=== PATIENT | male | born 1960 | race Caucasian/White ===

== ENCOUNTER 2016-08-04 11:18 | Emergency (ER) | payer MEDICARE ==
[~2016-08-04 11:18] MED LIST: LISI-538 PO
[2016-08-04 11:54] LABS: BASO % 0.6 % (0.0-1.0); EOS # 0.2 K/mm3 (0.0-0.50); EOS % 2.2 % (0.0-3.0); LARGE UNSTAINED CELL # 0.1 K/mm3 (0.0-0.4); LARGE UNSTAINED CELL % 1.9 % (0.0-4.0); LYMPH # 1.9 K/mm3 (1.5-4.5); LYMPH % 25.7 % (24.0-44.0); MEAN CORPUSCULAR HEMOGLOBIN 29.8 pg (27.0-33.0); MEAN CORPUSCULAR HGB CONC 33.5 g/dl (32.0-36.5); MEAN CORPUSCULAR VOLUME 88.9 fl (80.0-96.0); MONO # 0.4 K/mm3 (0.0-0.8); MONO % 4.8 % (0.0-5.0); NEUTROPHILS # 4.8 K/mm3 (1.8-7.7); NEUTROPHILS % 64.8 % (36.0-66.0); PLATELET COUNT, AUTOMATED 166 k/mm3 (150-450); RED CELL DISTRIBUTION WIDTH 12.5 % (11.5-14.5); WHITE BLOOD COUNT 7.3 K/mm3 (4.0-10.0)
[2016-08-04 12:08] LABS: ANION GAP 6 MEQ/L (8-16); BLOOD UREA NITROGEN 21 MG/DL (7-18); CALCIUM LEVEL 8.6 MG/DL (8.5-10.1); CARBON DIOXIDE LEVEL 28 MEQ/L (21-32); CHLORIDE LEVEL 106 MEQ/L (98-107); CREATININE FOR GFR 1.01 MG/DL (0.70-1.30); GLOMERULAR FILTRATION RATE > 60.0 (>56); GLUCOSE, FASTING 78 MG/DL (70-105); POTASSIUM SERUM 4.8 MEQ/L (3.5-5.1); SODIUM LEVEL 140 MEQ/L (136-145)
[2016-08-04 12:29] LABS: FREE T4 1.06 NG/DL (0.76-1.46)
--- NOTE | 2016-08-04 12:39 | REP ---
PORTABLE CHEST: AP portable view of the chest is performed and compared to a prior study of 10/10/2015. There is mild bibasilar fibrotic scarring. There is no acute infiltrate or pulmonary edema. The heart is normal in size. The mediastinal silhouette is unchanged. IMPRESSION: Stable chronic findings without evidence of acute infiltrate. Signed by Terell Stroud MD 08/04/2016 07:58 P
--- NOTE | 2016-08-04 14:10 | REP ---
RIGHT SHOULDER SERIES: Three views. HISTORY: Pain and decreased range of motion. FINDINGS: The right glenohumeral and acromioclavicular joints are normally aligned. There is osteoarthritic spurring at the superior aspect of the AC joint. No fracture is seen. No erosive change is seen. Periarticular soft tissues are unremarkable. IMPRESSION: AC joint osteoarthritis. No acute bony abnormality. Signed by Carlos Mendez MD 08/04/2016 03:01 P
[2016-08-04] MEDS ORDERED: ISOVUE-370 76% 100ML VIAL (Q9967) As Ordered ONE (16:00)
--- NOTE | 2016-08-04 16:46 | REP ---
CT study of the chest with IV contrast: History: Chest pain. Chest CT study is compared with prior exam from 10/10/2015. CT contrast dose: 75 mL of Isovue-[address] findings: There is no evidence of pleural or pericardial effusion. There are multiple left coronary artery stents noted. The previously described mediastinal and hilar lymph nodes have regressed. No adenopathy is seen. No adrenal lesion is seen on either side. The visualized upper abdominal structures are unremarkable. There is a small cyst in the left lobe of the liver measuring 7 mm in greatest diameter unchanged. No infiltrate is seen in the lung morocho. There is an area of pleuroparenchymal fibrosis in the right middle lobe which is unchanged. No pulmonary nodule or mass lesion is seen. No bony destructive lesion is seen. Impression: No active disease. Previously noted lymph nodes are smaller and have regressed. Pleuroparenchymal fibrosis is seen in the right middle lobe unchanged. Status post coronary artery stents. Signed by Carlos Mendez MD 08/04/2016 05:01 P
[2016-08-04] MEDS ORDERED: ACETAMINOPHEN 325 MG TAB As Ordered ONE (17:42)
--- NOTE | 2016-08-04 18:28 | EDDOCDS ---
Nurse's Notes [facility] Name: Gibran Esquivel Age: 56 yrs Sex: Male : 1960 Arrival Date: 08/04/2016 Time: 11:18 Bed 14 Private MD: Aguila Tejeda Diagnosis: Osteoarthritis, unspecified site;Other chest pain-pleuritic Presentation: 08/04 11:25 Presenting complaint: Patient states: chest pain for 2 days with difficulty breathing. 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 Adult Sepsis Screening: The patient does not have new or worsening altered mentation. Patient's respiratory rate is less than 22. Systolic blood pressure is greater than 100. Patient has a qSOFA score of 0- Negative Sepsis Screen. Suicide/Homicide risk assessment- the patient denies having any suicidal and/or homicidal ideations and does not present with any other emotional, behavioral or mental health complaints. Status: Patient is not a health service worker or dependent. Transition of care: patient was not received from another setting of care. 11:25 Acuity: STEFAN Level 2 kr3 11:25 Acuity: STEFAN Level 2 kr3 11:25 Method Of Arrival: Wheelchair kr3 11:29 Red Flag criteria, patient assessed and taken directly to a bed. kr3 Triage Assessment: 11:28 General: Appears uncomfortable. Pain: Location: chest and left arm Pain currently is 8 kr3 out of 10 on a pain scale. HIV screening NA for this visit Offered previously. The patient is triaged at the bedside. See Assessment in Nurses Notes section of ED record. Neurological: Level of Consciousness is awake, alert. Cardiovascular: Chest pain is described as severe, radiates to left arm(s) episodes are intermittent began 2 days ago. Respiratory: Reports shortness of breath on exertion. Derm: Skin is pink, warm & dry. Historical: - Allergies: codeine (itching); - Home Meds: 1. aspirin 81 mg Oral chew 1 tab once daily (Last dose: 08/04/2016) 2. atorvastatin 40 mg oral tab 1 tab once daily (Last dose: 08/04/2016) 3. lisinopril 40 mg Oral tab 1 tab twice a day (Last dose: 08/04/2016) 4. Lopressor 25 mg tablets Oral 0.5 tab 2 times per day (Last dose: 08/04/2016) 5. Plavix 75 mg Oral tab 1 tab nightly (Last dose: 08/03/2016) 6. tramadol 50 mg Oral tab 2 tabs every 6 hours (Last dose: 08/04/2016) 7. Nitrostat 0.4 mg SL subl 1 tab every 5 minutes 8. nicotine 21 mg/24 hr TD pt24 1 patch once daily - PMHx: Chronic Back pain; Kidney stones; AL; - PSHx: Cardiac stents; back surgery; kidney stone; - Social history: Smoking status: Patient uses tobacco products, current every day smoker. No barriers to communication noted, The patient speaks fluent Kinyarwanda, Speaks appropriately for age. - Family history: Not pertinent. - : The pt / caregiver states he / she is on anticoagulants: Plavix. Home medication list is obtained from the patient. - Exposure Risk Screening:: None identified. Screenin:42 Screening information is obtained from the patient. Fall risk: No risks identified. ck1 Assistance ADL's: requires no assistance with activities of daily living. Abuse/DV Screen: The patient / caregiver reports he/she is: not in a situation that causes fear, pain or injury. Nutritional screening: No deficits noted. Advance Directives: Currently, there is a health care proxy, Gibran Esquivel Jr (son). home support is adequate. Assessment: 11:43 General: Appears in no apparent distress, comfortable, Behavior is appropriate for age, ck1 cooperative. Pain: Location: chest Pain currently is 8 out of 10 on a pain scale. Is intermittent. Neurological: Level of Consciousness is awake, alert, obeys commands, Oriented to person, place, time. Cardiovascular: Rhythm is sinus bradycardia. Respiratory: Reports shortness of breath cough that is dry, hacking, persistent. GI: Reports nausea. Derm: Skin is intact, is healthy with good turgor, Skin is pink, warm & dry. Musculoskeletal: No deficits noted. 12:53 General: Appears in no apparent distress, comfortable, Behavior is appropriate for age, ck1 cooperative. Pain: Location: chest Pain currently is 8 out of 10 on a pain scale. Neurological: No deficits noted. Cardiovascular: Rhythm is sinus bradycardia. Respiratory: Airway is patent Respiratory effort is even, unlabored, Respiratory pattern is regular, symmetrical. GI: No deficits noted. Derm: Skin is intact, is healthy with good turgor, Skin is pink, warm & dry. 13:04 General: Appears in no apparent distress, comfortable, Behavior is appropriate for age, mb9 cooperative. Pain:. Respiratory: Airway is patent Respiratory effort is even, unlabored. 14:05 General: Appears in no apparent distress, comfortable, Behavior is appropriate for age, ck1 cooperative. Pain: Denies pain. Neurological: Level of Consciousness is awake, alert, obeys commands, Oriented to person, place, time. Cardiovascular: Rhythm is sinus bradycardia. Respiratory: Respiratory effort is unlabored, Respiratory pattern is regular, symmetrical. GI: No deficits noted. Derm: Skin is intact, is healthy with good turgor, Skin is pink, warm & dry. Musculoskeletal: Circulation, motion, and sensation intact Range of motion intact in all extremities. 15:05 General: Patient OOB to bathroom independently. gait steady, offer no complaints of ck1 pain at this time. Call light in reach, will continue to monitor patient. 16:15 General: Appears in no apparent distress, comfortable, Behavior is appropriate for age, ck1 cooperative. Pain: Denies pain. Neurological: Level of Consciousness is awake, alert, obeys commands, Oriented to person, place, time. Cardiovascular: Rhythm is sinus bradycardia. Respiratory: Respiratory effort is unlabored, Respiratory pattern is regular, symmetrical. GI: No deficits noted. Derm: Skin is intact, is healthy with good turgor, Skin is pink, warm & dry. Musculoskeletal: Circulation, motion, and sensation intact Range of motion intact in all extremities. 17:17 General: Appears in no apparent distress, comfortable, Behavior is appropriate for age, ck1 cooperative, pleasant. Pain: Denies pain. Neurological: Level of Consciousness is awake, alert, obeys commands, Oriented to person, place, time. Cardiovascular: Rhythm is sinus bradycardia. Respiratory: Respiratory effort is unlabored, Respiratory pattern is regular, symmetrical. GI: No deficits noted. Derm: Skin is intact, is healthy with good turgor, Skin is pink, warm & dry. Musculoskeletal: Circulation, motion, and sensation intact Range of motion intact in all extremities. 18:27 General: Appears in no apparent distress, comfortable, Behavior is appropriate for age, ck1 cooperative. Pain: Denies pain. Neurological: Level of Consciousness is awake, alert, obeys commands, Oriented to person, place, time. Cardiovascular: No deficits noted. Respiratory: Respiratory effort is unlabored, Respiratory pattern is regular, symmetrical. GI: No deficits noted. Derm: Skin is intact, is healthy with good turgor, Skin is pink, warm & dry. Musculoskeletal: Circulation, motion, and sensation intact Range of motion intact in all extremities. Vital Signs: 11:20 BP 147 / 77; Pulse 51; Resp 16; Temp 96.8(O); Pulse Ox 99% ; Weight 59.87 kg; Height 5 cmb ft. 3 in. (160.02 cm); Pain 8/10; 11:26 BP 148 / 79 (auto/); ck1 11:27 Pulse 52 MON; Pulse Ox 97% ; ck1 11:41 BP 128 / 76 (auto/); ck1 11:41 Pulse 44 MON; Pulse Ox 96% ; ck1 11:56 BP 150 / 91 (auto/); ck1 11:56 Pulse 48 MON; Pulse Ox 95% ; ck1 12:11 BP 135 / 77 (auto/); ck1 12:11 Pulse 44 MON; Pulse Ox 95% ; ck1 12:25 Pulse 42 MON; Pulse Ox 95% ; ck1 12:26 BP 138 / 73 (auto/); ck1 12:41 BP 141 / 78 (auto/); ck1 12:41 Pulse 42 MON; Pulse Ox 96% ; ck1 12:52 BP 141 / 83 RA; ck1 12:52 BP 143 / 72 LA; ck1 12:56 BP 142 / 65 (auto/); ck1 12:56 Pulse 42 MON; Pulse Ox 96% ; ck1 13:11 BP 145 / 75 (auto/); ck1 13:11 Pulse 44 MON; Pulse Ox 96% ; ck1 13:26 BP 148 / 89 (auto/); ck1 13:26 Pulse 44 MON; Pulse Ox 97% ; ck1 13:41 BP 140 / 89 (auto/); ck1 13:41 Pulse 44 MON; Pulse Ox 97% ; ck1 13:56 BP 161 / 89 (auto/); ck1 13:56 Pulse 44 MON; Pulse Ox 97% ; ck1 14:11 BP 162 / 91 (auto/); ck1 14:11 Pulse 44 MON; Pulse Ox 96% ; ck1 14:26 BP 168 / 93 (auto/); ck1 14:26 Pulse 46 MON; Pulse Ox 94% ; ck1 14:41 BP 144 / 83 (auto/); ck1 14:41 Pulse 46 MON; Pulse Ox 96% ; ck1 14:56 BP 153 / 90 (auto/); ck1 14:56 Pulse 44 MON; Pulse Ox 96% ; ck1 15:04 BP 125 / 83 (auto/); ck1 15:06 Pulse 46 MON; Pulse Ox 98% ; ck1 15:19 BP 167 / 82 (auto/); ck1 15:19 Pulse 46 MON; Pulse Ox 99% ; ck1 15:34 BP 188 / 69 (auto/); ck1 15:34 Pulse 50 MON; Pulse Ox 98% ; ck1 15:49 BP 142 / 70 (auto/); ck1 15:49 Pulse 46 MON; Pulse Ox 97% ; ck1 16:04 BP 140 / 78 (auto/); ck1 16:04 Pulse 48 MON; Pulse Ox 97% ; ck1 16:05 Resp 18; Temp 98.0(O); ck1 16:19 Pulse 48 MON; Pulse Ox 99% ; ck1 16:19 BP 163 / 77 (auto/); ck1 16:34 BP 148 / 75 (auto/); ck1 16:34 Pulse 46 MON; Pulse Ox 99% ; ck1 16:49 BP 150 / 86 (auto/); ck1 16:49 Pulse 46 MON; Pulse Ox 97% ; ck1 17:04 BP 153 / 87 (auto/); ck1 17:04 Pulse 58 MON; Pulse Ox 99% ; ck1 17:09 BP 161 / 77 (auto/); ck1 17:11 Pulse 46 MON; Pulse Ox 99% ; ck1 17:24 BP 143 / 73 (auto/); ck1 17:24 Pulse 50 MON; Pulse Ox 97% ; ck1 17:39 BP 168 / 81 (auto/); ck1 17:39 Pulse 48 MON; Pulse Ox 96% ; ck1 18:24 BP 155 / 92; Pulse 51; Resp 20; Temp 97.4(O); Pulse Ox 100% on R/A; Pain 0/10; jml1 11:20 Body Mass Index 23.38 (59.87 kg, 160.02 cm) cmb Vitals: 11:20 Log In Time: August 04, 2016 at 11:15. RN notified that patient meets Red Flag cmb criteria. ED Course: :20 Patient visited by Afsaneh Ortiz. cmb 11:20 Aguila Tejeda PA is Private Physician. cmb 11:20 Patient moved to Waiting cmb 11:23 Yumiko England,BEE is Primary Nurse. kr3 11:23 Patient moved to 14 kr3 11:26 Triage Initiated kr3 11:32 Linda Garcia DO is PHCP. jo4 11:32 Evy Almonte MD is Attending Physician. jo4 11:35 Patient visited by Kurt Wheat. dem1 11:35 EKG done. (by ED staff). Reviewed by Linda Garcia DO. dem1 11:42 The patient / caregiver is instructed regarding the plan of care and ED course. Cardiac ck1 monitor on. Pulse ox on. NIBP on. 11:42 Basic Metabolic Profile Sent. ck1 11:42 CBC with Diff Sent. ck1 11:42 Cardiac Injury Profile Sent. ck1 11:42 Troponin Sent. ck1 11:42 Inserted saline lock: 20 gauge in left antecubital area and blood collected. The ck1 patient tolerated the procedure well. 11:45 Patient visited by Linda Garcia DO. jo4 11:45 Patient visited by Linda Garcia DO. jo4 12:13 FT4&TSH PANEL Sent. ck1 12:18 Patient visited by Yuimko England RN. ck1 12:49 Patient visited by Yumiko England RN. ck1 13:22 portable chest Returned. EDMS 13:32 Patient visited by Yumiko England RN. ck1 14:05 Patient visited by Yumiko England RN. ck1 14:11 Shoulder, Complete Returned. EDMS 14:22 Patient visited by Yumiko England RN. ck1 14:53 Patient visited by Yumiko England RN. ck1 15:31 Patient visited by Yumiko England RN. ck1 15:37 [facility] Payment Agreement was scanned into [employer] and attached to record. jp5 15:39 Patient visited by Yumiko England RN. ck1 15:52 Shoulder, Complete Returned. EDMS 16:05 Patient visited by Yumiko England RN. ck1 16:36 Patient visited by Yumiko England RN. ck1 17:16 Patient visited by Yumiko England RN. ck1 17:18 No procedures done that require assistance. ck1 17:26 CARDIAC MARKER PANEL Sent. ck1 17:36 CT Chest With Contrast Returned. EDMS 17:40 Patient visited by Yumiko England RN. ck1 18:06 Jose Mariscal is Referral Physician. jo4 18:06 Aguila Tejeda PA is Referral Physician. jo4 18:24 Patient visited by Azam Downs. jml1 18:26 Discontinued lock intact, bleeding controlled, pressure dressing applied, No ck1 redness/swelling at site. Administered Medications: 17:46 Drug: Acetaminophen 325 mg [acetaminophen 325 mg tablet (1 tabs)] Route: PO; ck1 Order Results: Lab Order: Basic Metabolic Profile; [facility]' 08/04/16 11:40 Test: GLUCOSE, FASTING; Value: 78; Range: 70-105; Units: MG/DL; Status: F Test: BLOOD UREA NITROGEN; Value: 21; Range: 7-18; Abnormal: Above high normal; Units: MG/DL; Status: F Test: CREATININE FOR GFR; Value: 1.01; Range: 0.70-1.30; Units: MG/DL; Status: F Test: GLOMERULAR FILTRATION RATE; Value: > 60.0; Range: >56; Status: F Test: SODIUM LEVEL; Value: 140; Range: 136-145; Units: MEQ/L; Status: F Test: POTASSIUM SERUM; Value: 4.8; Range: 3.5-5.1; Units: MEQ/L; Status: F Test: CHLORIDE LEVEL; Value: 106; Range: 98-107; Units: MEQ/L; Status: F Test: CARBON DIOXIDE LEVEL; Value: 28; Range: 21-32; Units: MEQ/L; Status: F Test: ANION GAP; Value: 6; Range: 8-16; Abnormal: Below low normal; Units: MEQ/L; Status: F Test: CALCIUM LEVEL; Value: 8.6; Range: 8.5-10.1; Units: MG/DL; Status: F Test Note: ; Units are mL/min/1.73 m2 Chronic Kidney Disease Staging per NKF: Stage I & II GFR >=60 Normal to Mildly Decreased Stage III GFR 30-59 Moderately Decreased Stage IV GFR 15-29 Severely Decreased Stage V GFR <15 Very Little GFR Left ESRD GFR <15 on [employer] Test: THYROID STIMULATING HORMONE; Range: 0.358-3.740; Units: uIU/ML; Status: I Test: FREE T4; Range: 0.76-1.46; Units: NG/DL; Status: I Lab Order: CBC with Diff; SPEC'M 08/04/16 11:40 Test: WHITE BLOOD COUNT; Value: 7.3; Range: 4.0-10.0; Units: K/mm3; Status: F Test: RED BLOOD COUNT; Value: 5.07; Range: 4.30-6.10; Units: M/mm3; Status: F Test: HEMOGLOBIN; Value: 15.1; Range: 14.0-18.0; Units: g/dl; Status: F Test: HEMATOCRIT; Value: 45.1; Range: 42.0-52.0; Units: %; Status: F Test: MEAN CORPUSCULAR VOLUME; Value: 88.9; Range: 80.0-96.0; Units: fl; Status: F Test: MEAN CORPUSCULAR HEMOGLOBIN; Value: 29.8; Range: 27.0-33.0; Units: pg; Status: F Test: MEAN CORPUSCULAR HGB CONC; Value: 33.5; Range: 32.0-36.5; Units: g/dl; Status: F Test: RED CELL DISTRIBUTION WIDTH; Value: 12.5; Range: 11.5-14.5; Units: %; Status: F Test: PLATELET COUNT, AUTOMATED; Value: 166; Range: 150-450; Units: k/mm3; Status: F Test: NEUTROPHILS %; Value: 64.8; Range: 36.0-66.0; Units: %; Status: F Test: LYMPH %; Value: 25.7; Range: 24.0-44.0; Units: %; Status: F Test: MONO %; Value: 4.8; Range: 0.0-5.0; Units: %; Status: F Test: EOS %; Value: 2.2; Range: 0.0-3.0; Units: %; Status: F Test: BASO %; Value: 0.6; Range: 0.0-1.0; Units: %; Status: F Test: LARGE UNSTAINED CELL %; Value: 1.9; Range: 0.0-4.0; Units: %; Status: F Test: NEUTROPHILS #; Value: 4.8; Range: 1.8-7.7; Units: K/mm3; Status: F Test: LYMPH #; Value: 1.9; Range: 1.5-4.5; Units: K/mm3; Status: F Test: MONO #; Value: 0.4; Range: 0.0-0.8; Units: K/mm3; Status: F Test: EOS #; Value: 0.2; Range: 0.0-0.50; Units: K/mm3; Status: F Test: BASO #; Value: 0.0; Range: 0.0-0.2; Units: K/mm3; Status: F Test: LARGE UNSTAINED CELL #; Value: 0.1; Range: 0.0-0.4; Units: K/mm3; Status: F Lab Order: Cardiac Injury Profile; SPEC'M 08/04/16 11:40 Test: CPK CREATINE PHOSPHOKINASE; Value: 83; Range: 39-308; Units: U/L; Status: F Test: CK-MB VALUE MASS; Value: 1.2; Range: 0.0-3.6; Units: NG/ML; Status: F Test: MB/CK RELATIVE INDEX; Value: 1.44; Range: < OR =4; Status: F Test Note: ; DIAGNOSIS CRITERIA MMB ng/ml Relative Index (RI) NON-AMI < or = 5 N/A ROTH ZONE > 5 < or = 4 AMI > 5 > 4 Lab Order: Troponin; SPEC'M 08/04/16 11:40 Test: TROPONIN I; Value: < 0.02; Range: < 0.10; Units: NG/ML; Status: F Test Note: ; Troponin I Reference Interval for [employer] LOCI: 99th Percentile= 0.00-0.045 ng/ml Risk Stratification: <= 0.10 ng/ml Decreased Risk for Adverse Clinical Events. 0.10-1.50 ng/ml Increased Risk for Adverse Clinical Events. Evaluation of additional criterion and/or repeat testing in 2-6 hours is suggested to rule out myocardial damage. >= 1.50 ng/ml Indicative of Myocardial Injury. Lab Order: FT4&TSH PANEL; SPEC'M 08/04/16 11:40 Test: THYROID STIMULATING HORMONE; Value: 1.980; Range: 0.358-3.740; Units: uIU/ML; Status: F Test: FREE T4; Value: 1.06; Range: 0.76-1.46; Units: NG/DL; Status: F Lab Order: CARDIAC MARKER PANEL; SPEC'M 08/04/16 17:25 Test: CPK CREATINE PHOSPHOKINASE; Value: 67; Range: 39-308; Units: U/L; Status: F Test: CK-MB VALUE MASS; Value: 1.0; Range: 0.0-3.6; Units: NG/ML; Status: F Test: MB/CK RELATIVE INDEX; Value: 1.49; Range: < OR =4; Status: F Test: TROPONIN I; Value: < 0.02; Range: < 0.10; Units: NG/ML; Status: F Test Note: ; DIAGNOSIS CRITERIA MMB ng/ml Relative Index (RI) NON-AMI < or = 5 N/A ROTH ZONE > 5 < or = 4 AMI > 5 > 4 Radiology Order: portable chest Test: portable chest REASON FOR EXAMINATION: Chest Pain; ; PORTABLE CHEST:; ; AP portable view of the chest is performed and compared to a prior study of; 10/10/2015.; ; There is mild bibasilar fibrotic scarring. There is no acute infiltrate or; pulmonary edema. The heart is normal in size. The mediastinal silhouette is; unchanged.; ; IMPRESSION:; Stable chronic findings without evidence of acute infiltrate.; ; ; ; Unreviewed; Radiology Order: Shoulder, Complete Test: Shoulder, Complete REASON FOR EXAMINATION: Pain, decreased ROM; RIGHT SHOULDER SERIES: Three views.; ; HISTORY: Pain and decreased range of motion.; ; FINDINGS: The right glenohumeral and acromioclavicular joints are normally; aligned. There is osteoarthritic spurring at the superior aspect of the AC; joint. No fracture is seen. No erosive change is seen. Periarticular soft; tissues are unremarkable.; ; IMPRESSION: AC joint osteoarthritis. No acute bony abnormality.; ; ; Signed by; Carlos Mendez MD 08/04/2016 03:01 P; Radiology Order: CT Chest With Contrast Test: CT Chest With Contrast REASON FOR EXAMINATION: Chest Pain; CT study of the chest with IV contrast:; ; History: Chest pain.; ; Chest CT study is compared with prior exam from 10/10/2015.; ; CT contrast dose: 75 mL of Isovue-370 is administered intravenously.; ; CT findings: There is no evidence of pleural or pericardial effusion. There are; multiple left coronary artery stents noted. The previously described mediastinal; and hilar lymph nodes have regressed. No adenopathy is seen. No adrenal lesion; is seen on either side. The visualized upper abdominal structures are; unremarkable. There is a small cyst in the left lobe of the liver measuring 7 mm; in greatest diameter unchanged. No infiltrate is seen in the lung morocho. There; is an area of pleuroparenchymal fibrosis in the right middle lobe which is; unchanged. No pulmonary nodule or mass lesion is seen. No bony destructive; lesion is seen.; ; Impression:; ; No active disease. Previously noted lymph nodes are smaller and have regressed.; Pleuroparenchymal fibrosis is seen in the right middle lobe unchanged. Status; post coronary artery stents.; ; ; Signed by; Carlos Mendez MD 08/04/2016 05:01 P; Outcome: 16:14 CT Study completed. ck1 18:08 Discharge ordered by Provider. jo4 18:27 Discharge Assessment: Patient awake, alert and oriented x 3. No cognitive and/or ck1 functional deficits noted. Patient verbalized understanding of disposition instructions. patient administered narcotics - no. The following High Risk Discharge criteria are identified: None. Discharged to home ambulatory. Condition: stable. Discharge instructions given to patient, Instructed on discharge instructions, follow up and referral plans. medication usage, Demonstrated understanding of instructions, medications, Pt was receptive of discharge instructions/ teaching. Work note provided to patient. Property :Personal belongings accompany Pt. 18:28 Patient left the ED. ck1 Signatures: Dispatcher [employer] EDKS Yumiko England RN RN ck1 Yanique Montalvo RN RN kr3 Azam Downs jml1 Kurt Wheat dem1 Afsaneh Ortiz Michael,RN RN mb9 Joseph Meza jp5 Linda Garcia DO DO jo4 Corrections: (The following items were deleted from the chart) 11:37 11:35 EKG done. (by ED staff). Reviewed by Evy Almonte MD dem1 dem1 12:12 12:11 FT4&TSH PANEL+LAB sent. ck1 EDMS MTDD
--- NOTE | 2016-08-04 18:28 | EDDOCDS ---
Physician Documentation [facility] Name: Girban Esquivel Age: 56 yrs Sex: Male : 1960 Arrival Date: 08/04/2016 Time: 11:18 Bed 14 Private MD: Aguila Tejeda Disposition: 08/04/16 18:08 Discharged to Home/Self Care. Impression: Osteoarthritis, unspecified site, Other chest pain - pleuritic. - Condition is Stable. - Discharge Instructions: Pleurisy, [id number]. - Medication Reconciliation, Local Pharmacy Hours, Work Release Form - 1 day form. - Follow up: Jose Mariscal; When: As previously arranged; Reason: Recheck today's complaints, Continuance of care. Follow up: Aguila Tejeda; When: Call to arrange an appointment; Reason: Recheck today's complaints. - Problem is new. - Symptoms have improved. - Notes: You were evaluated in the emergency department for chest and shoulder pain. Your laboratory results reported no acute changes. The x-ray of your shoulder reported osteoarthritis. Please keep your scheduled appointment with Dr. Mariscal as previously arranged. Please call to arrange an appointment with your primary care provider at your soonest convenience. Historical: - Allergies: codeine (itching); - Home Meds: 1. aspirin 81 mg Oral chew 1 tab once daily (Last dose: 08/04/2016) 2. atorvastatin 40 mg oral tab 1 tab once daily (Last dose: 08/04/2016) 3. lisinopril 40 mg Oral tab 1 tab twice a day (Last dose: 08/04/2016) 4. Lopressor 25 mg tablets Oral 0.5 tab 2 times per day (Last dose: 08/04/2016) 5. Plavix 75 mg Oral tab 1 tab nightly (Last dose: 08/03/2016) 6. tramadol 50 mg Oral tab 2 tabs every 6 hours (Last dose: 08/04/2016) 7. Nitrostat 0.4 mg SL subl 1 tab every 5 minutes 8. nicotine 21 mg/24 hr TD pt24 1 patch once daily - PMHx: Chronic Back pain; Kidney stones; [place]; - PSHx: Cardiac stents; back surgery; kidney stone; - Social history: Smoking status: Patient uses tobacco products, current every day smoker. No barriers to communication noted, The patient speaks fluent German, Speaks appropriately for age. - Family history: Not pertinent. - : The pt / caregiver states he / she is on anticoagulants: Plavix. Home medication list is obtained from the patient. - Exposure Risk Screening:: None identified. Vital Signs: 08/04 11:20 BP 147 / 77; Pulse 51; Resp 16; Temp 96.8(O); Pulse Ox 99% ; Weight 59.87 kg / 131.99 cmb lbs; Height 5 ft. 3 in. (160.02 cm); Pain 8/10; 11:26 BP 148 / 79 (auto/); ck1 11:27 Pulse 52 MON; Pulse Ox 97% ; ck1 11:41 BP 128 / 76 (auto/); ck1 11:41 Pulse 44 MON; Pulse Ox 96% ; ck1 11:56 BP 150 / 91 (auto/); ck1 11:56 Pulse 48 MON; Pulse Ox 95% ; ck1 12:11 BP 135 / 77 (auto/); ck1 12:11 Pulse 44 MON; Pulse Ox 95% ; ck1 12:25 Pulse 42 MON; Pulse Ox 95% ; ck1 12:26 BP 138 / 73 (auto/); ck1 12:41 BP 141 / 78 (auto/); ck1 12:41 Pulse 42 MON; Pulse Ox 96% ; ck1 12:52 BP 141 / 83 RA; ck1 12:52 BP 143 / 72 LA; ck1 12:56 BP 142 / 65 (auto/); ck1 12:56 Pulse 42 MON; Pulse Ox 96% ; ck1 13:11 BP 145 / 75 (auto/); ck1 13:11 Pulse 44 MON; Pulse Ox 96% ; ck1 13:26 BP 148 / 89 (auto/); ck1 13:26 Pulse 44 MON; Pulse Ox 97% ; ck1 13:41 BP 140 / 89 (auto/); ck1 13:41 Pulse 44 MON; Pulse Ox 97% ; ck1 13:56 BP 161 / 89 (auto/); ck1 13:56 Pulse 44 MON; Pulse Ox 97% ; ck1 14:11 BP 162 / 91 (auto/); ck1 14:11 Pulse 44 MON; Pulse Ox 96% ; ck1 14:26 BP 168 / 93 (auto/); ck1 14:26 Pulse 46 MON; Pulse Ox 94% ; ck1 14:41 BP 144 / 83 (auto/); ck1 14:41 Pulse 46 MON; Pulse Ox 96% ; ck1 14:56 BP 153 / 90 (auto/); ck1 14:56 Pulse 44 MON; Pulse Ox 96% ; ck1 15:04 BP 125 / 83 (auto/); ck1 15:06 Pulse 46 MON; Pulse Ox 98% ; ck1 15:19 BP 167 / 82 (auto/); ck1 15:19 Pulse 46 MON; Pulse Ox 99% ; ck1 15:34 BP 188 / 69 (auto/); ck1 15:34 Pulse 50 MON; Pulse Ox 98% ; ck1 15:49 BP 142 / 70 (auto/); ck1 15:49 Pulse 46 MON; Pulse Ox 97% ; ck1 16:04 BP 140 / 78 (auto/); ck1 16:04 Pulse 48 MON; Pulse Ox 97% ; ck1 16:05 Resp 18; Temp 98.0(O); ck1 16:19 Pulse 48 MON; Pulse Ox 99% ; ck1 16:19 BP 163 / 77 (auto/); ck1 16:34 BP 148 / 75 (auto/); ck1 16:34 Pulse 46 MON; Pulse Ox 99% ; ck1 16:49 BP 150 / 86 (auto/); ck1 16:49 Pulse 46 MON; Pulse Ox 97% ; ck1 17:04 BP 153 / 87 (auto/); ck1 17:04 Pulse 58 MON; Pulse Ox 99% ; ck1 17:09 BP 161 / 77 (auto/); ck1 17:11 Pulse 46 MON; Pulse Ox 99% ; ck1 17:24 BP 143 / 73 (auto/); ck1 17:24 Pulse 50 MON; Pulse Ox 97% ; ck1 17:39 BP 168 / 81 (auto/); ck1 17:39 Pulse 48 MON; Pulse Ox 96% ; ck1 18:24 BP 155 / 92; Pulse 51; Resp 20; Temp 97.4(O); Pulse Ox 100% on R/A; Pain 0/10; jml1 11:20 Body Mass Index 23.38 (59.87 kg, 160.02 cm) cmb MDM: 11:23 Health Services Rn/Pulse Ox/q 30 min VS ordered. sd1 11:23 IV Saline Lock ordered. sd1 11:23 Rhythm Strip to chart ordered. sd1 11:23 Undress patient appropriately for examination ordered. sd1 11:24 ECG WITH READING ER PHYS+CARDIAG ordered. EDMS 11:24 Basic Metabolic Profile Ordered. EDMS 11:24 CBC with Diff Ordered. EDMS 11:24 Cardiac Injury Profile Ordered. EDMS 11:24 Troponin Ordered. EDMS 11:25 portable chest Ordered. EDMS 12:12 FT4&TSH PANEL Ordered. EDMS 12:14 CBC with Diff Reviewed. jo4 12:14 Cardiac Injury Profile Reviewed. jo4 12:14 Troponin Reviewed. jo4 12:39 Basic Metabolic Profile Reviewed. sd1 12:39 Cardiac Injury Profile Reviewed. sd1 12:39 Troponin Reviewed. sd1 12:39 FT4&TSH PANEL Reviewed. sd1 12:43 Misc. Nursing Order ordered. sd1 12:54 Shoulder, Complete Ordered. EDMS 14:05 ED course: 56 yo male h/o [place] presents reporting pleuritic intermittent chest pain sd1 without associated SOB pain began at rest was not effected by exertion no respiratory symtpome no LE symptoms no PE risk patient also reports limited ROM right shoulder unknwon trauma secondary to pain pain elicited at >90 degree adduction no sewlling warmth or redness neuro vasc intact distally plan labs xray reeval. 15:30 Redraw CIP &Troponin (put time in details section) ordered. sd1 15:34 Redraw CIP &Troponin (put time in details section) complete. jml1 15:35 CARDIAC MARKER PANEL Ordered. EDMS 15:37 [facility] Payment Agreement was scanned into [employer] and attached to record. jp5 15:37 Financial registration complete. jp5 15:39 Shoulder, Complete Reviewed. jo4 15:39 REGULAR+DIET ordered. EDMS 15:39 portable chest Reviewed. jo4 15:51 CT Chest With Contrast Ordered. EDMS 17:30 Acetaminophen Tablet 325 mg PO once ordered. jo4 17:56 Shoulder, Complete Reviewed. sd1 17:56 CT Chest With Contrast Reviewed. sd1 18:03 CARDIAC MARKER PANEL Reviewed. sd1 Administered Medications: 17:46 Drug: Acetaminophen 325 mg [acetaminophen 325 mg tablet (1 tabs)] Route: PO; ck1 Signatures: Dispatcher [employer] EDGA Evy Almonte MD MD sd1 Yumiko England,RN RN ck1 Yanique Montalvo,RN RN kr3 Azam Downsl1 Joseph Meza jp5 Linda Garcia DO DO jo4 The chart was reviewed and I authenticate all verbal orders and agree with the evaluation and treatment provided.Corrections: (The following items were deleted from the chart) 12:12 12:04 FT4&TSH PANEL+LAB ordered. EDMS EDMS Attachments: 15:37 [facility] Payment Agreement jp5 MTDD
--- NOTE | 2016-08-04 20:23 | ECGEPIP ---
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
--- NOTE | 2016-08-06 19:29 | EDDOCDS ---
Physician Documentation [facility] Name: Gibran Esquivel Age: 56 yrs Sex: Male : 1960 Arrival Date: 08/04/2016 Time: 11:18 Bed 14 Private MD: Aguila Tejeda Disposition: 08/04/16 18:08 Discharged to Home/Self Care. Impression: Osteoarthritis, unspecified site, Other chest pain - pleuritic. - Condition is Stable. - Discharge Instructions: Pleurisy, [id number]. - Medication Reconciliation, Local Pharmacy Hours, Work Release Form - 1 day form. - Follow up: Jose Mariscal; When: As previously arranged; Reason: Recheck today's complaints, Continuance of care. Follow up: Aguila Tejeda; When: Call to arrange an appointment; Reason: Recheck today's complaints. - Problem is new. - Symptoms have improved. - Notes: You were evaluated in the emergency department for chest and shoulder pain. Your laboratory results reported no acute changes. The x-ray of your shoulder reported osteoarthritis. Please keep your scheduled appointment with Dr. Mariscal as previously arranged. Please call to arrange an appointment with your primary care provider at your soonest convenience. Historical: - Allergies: codeine (itching); - Home Meds: 1. aspirin 81 mg Oral chew 1 tab once daily (Last dose: 08/04/2016) 2. atorvastatin 40 mg oral tab 1 tab once daily (Last dose: 08/04/2016) 3. lisinopril 40 mg Oral tab 1 tab twice a day (Last dose: 08/04/2016) 4. Lopressor 25 mg tablets Oral 0.5 tab 2 times per day (Last dose: 08/04/2016) 5. Plavix 75 mg Oral tab 1 tab nightly (Last dose: 08/03/2016) 6. tramadol 50 mg Oral tab 2 tabs every 6 hours (Last dose: 08/04/2016) 7. Nitrostat 0.4 mg SL subl 1 tab every 5 minutes 8. nicotine 21 mg/24 hr TD pt24 1 patch once daily - PMHx: Chronic Back pain; Kidney stones; [place]; - PSHx: Cardiac stents; back surgery; kidney stone; - Social history: Smoking status: Patient uses tobacco products, current every day smoker. No barriers to communication noted, The patient speaks fluent Korean, Speaks appropriately for age. - Family history: Not pertinent. - : The pt / caregiver states he / she is on anticoagulants: Plavix. Home medication list is obtained from the patient. - Exposure Risk Screening:: None identified. Vital Signs: 08/04 11:20 BP 147 / 77; Pulse 51; Resp 16; Temp 96.8(O); Pulse Ox 99% ; Weight 59.87 kg / 131.99 cmb lbs; Height 5 ft. 3 in. (160.02 cm); Pain 8/10; 11:26 BP 148 / 79 (auto/); ck1 11:27 Pulse 52 MON; Pulse Ox 97% ; ck1 11:41 BP 128 / 76 (auto/); ck1 11:41 Pulse 44 MON; Pulse Ox 96% ; ck1 11:56 BP 150 / 91 (auto/); ck1 11:56 Pulse 48 MON; Pulse Ox 95% ; ck1 12:11 BP 135 / 77 (auto/); ck1 12:11 Pulse 44 MON; Pulse Ox 95% ; ck1 12:25 Pulse 42 MON; Pulse Ox 95% ; ck1 12:26 BP 138 / 73 (auto/); ck1 12:41 BP 141 / 78 (auto/); ck1 12:41 Pulse 42 MON; Pulse Ox 96% ; ck1 12:52 BP 141 / 83 RA; ck1 12:52 BP 143 / 72 LA; ck1 12:56 BP 142 / 65 (auto/); ck1 12:56 Pulse 42 MON; Pulse Ox 96% ; ck1 13:11 BP 145 / 75 (auto/); ck1 13:11 Pulse 44 MON; Pulse Ox 96% ; ck1 13:26 BP 148 / 89 (auto/); ck1 13:26 Pulse 44 MON; Pulse Ox 97% ; ck1 13:41 BP 140 / 89 (auto/); ck1 13:41 Pulse 44 MON; Pulse Ox 97% ; ck1 13:56 BP 161 / 89 (auto/); ck1 13:56 Pulse 44 MON; Pulse Ox 97% ; ck1 14:11 BP 162 / 91 (auto/); ck1 14:11 Pulse 44 MON; Pulse Ox 96% ; ck1 14:26 BP 168 / 93 (auto/); ck1 14:26 Pulse 46 MON; Pulse Ox 94% ; ck1 14:41 BP 144 / 83 (auto/); ck1 14:41 Pulse 46 MON; Pulse Ox 96% ; ck1 14:56 BP 153 / 90 (auto/); ck1 14:56 Pulse 44 MON; Pulse Ox 96% ; ck1 15:04 BP 125 / 83 (auto/); ck1 15:06 Pulse 46 MON; Pulse Ox 98% ; ck1 15:19 BP 167 / 82 (auto/); ck1 15:19 Pulse 46 MON; Pulse Ox 99% ; ck1 15:34 BP 188 / 69 (auto/); ck1 15:34 Pulse 50 MON; Pulse Ox 98% ; ck1 15:49 BP 142 / 70 (auto/); ck1 15:49 Pulse 46 MON; Pulse Ox 97% ; ck1 16:04 BP 140 / 78 (auto/); ck1 16:04 Pulse 48 MON; Pulse Ox 97% ; ck1 16:05 Resp 18; Temp 98.0(O); ck1 16:19 Pulse 48 MON; Pulse Ox 99% ; ck1 16:19 BP 163 / 77 (auto/); ck1 16:34 BP 148 / 75 (auto/); ck1 16:34 Pulse 46 MON; Pulse Ox 99% ; ck1 16:49 BP 150 / 86 (auto/); ck1 16:49 Pulse 46 MON; Pulse Ox 97% ; ck1 17:04 BP 153 / 87 (auto/); ck1 17:04 Pulse 58 MON; Pulse Ox 99% ; ck1 17:09 BP 161 / 77 (auto/); ck1 17:11 Pulse 46 MON; Pulse Ox 99% ; ck1 17:24 BP 143 / 73 (auto/); ck1 17:24 Pulse 50 MON; Pulse Ox 97% ; ck1 17:39 BP 168 / 81 (auto/); ck1 17:39 Pulse 48 MON; Pulse Ox 96% ; ck1 18:24 BP 155 / 92; Pulse 51; Resp 20; Temp 97.4(O); Pulse Ox 100% on R/A; Pain 0/10; jml1 11:20 Body Mass Index 23.38 (59.87 kg, 160.02 cm) cmb MDM: 11:23 Assault Amphibious Vehicle Officer/Pulse Ox/q 30 min VS ordered. sd1 11:23 IV Saline Lock ordered. sd1 11:23 Rhythm Strip to chart ordered. sd1 11:23 Undress patient appropriately for examination ordered. sd1 11:24 ECG WITH READING ER PHYS+CARDIAG ordered. EDMS 11:24 Basic Metabolic Profile Ordered. EDMS 11:24 CBC with Diff Ordered. EDMS 11:24 Cardiac Injury Profile Ordered. EDMS 11:24 Troponin Ordered. EDMS 11:25 portable chest Ordered. EDMS 12:12 FT4&TSH PANEL Ordered. EDMS 12:14 CBC with Diff Reviewed. jo4 12:14 Cardiac Injury Profile Reviewed. jo4 12:14 Troponin Reviewed. jo4 12:39 Basic Metabolic Profile Reviewed. sd1 12:39 Cardiac Injury Profile Reviewed. sd1 12:39 Troponin Reviewed. sd1 12:39 FT4&TSH PANEL Reviewed. sd1 12:43 Misc. Nursing Order ordered. sd1 12:54 Shoulder, Complete Ordered. EDMS 14:05 ED course: 56 yo male h/o [place] presents reporting pleuritic intermittent chest pain sd1 without associated SOB pain began at rest was not effected by exertion no respiratory symtpome no LE symptoms no PE risk patient also reports limited ROM right shoulder unknwon trauma secondary to pain pain elicited at >90 degree adduction no sewlling warmth or redness neuro vasc intact distally plan labs xray reeval. 15:30 Redraw CIP &Troponin (put time in details section) ordered. sd1 15:34 Redraw CIP &Troponin (put time in details section) complete. jml1 15:35 CARDIAC MARKER PANEL Ordered. EDMS 15:37 [facility] Payment Agreement was scanned into [employer] and attached to record. jp5 15:37 Financial registration complete. jp5 15:39 Shoulder, Complete Reviewed. jo4 15:39 REGULAR+DIET ordered. EDMS 15:39 portable chest Reviewed. jo4 15:51 CT Chest With Contrast Ordered. EDMS 17:30 Acetaminophen Tablet 325 mg PO once ordered. jo4 17:56 Shoulder, Complete Reviewed. sd1 17:56 CT Chest With Contrast Reviewed. sd1 18:03 CARDIAC MARKER PANEL Reviewed. sd1 08/05 11:26 T-Sheet-- Draft Copy was scanned into [employer] and attached to record. gb 11:26 ECG/EKG was scanned into [employer] and attached to record. gb Administered Medications: 08/04 17:46 Drug: Acetaminophen 325 mg [acetaminophen 325 mg tablet (1 tabs)] Route: PO; ck1 Signatures: Dispatcher [employer] EDMS Evy Almonte MD MD sd1 Emma Chavira, Reg Reg gb Yumiko EnglandRN RN ck1 Yanique Montalvo RN RN kr3 Azam Downsl1 Joseph Meza jp5 Linda Garcia DO DO jo4 The chart was reviewed and I authenticate all verbal orders and agree with the evaluation and treatment provided.Corrections: (The following items were deleted from the chart) 12:12 12:04 FT4&TSH PANEL+LAB ordered. EDMS EDMS Attachments: 15:37 [facility] Payment Agreement jp5 08/05 11:26 T-Sheet-- Draft Copy gb 11:26 ECG/EKG gb Chart Complete MTDD
--- NOTE | 2016-08-06 19:29 | EDDOCDS ---
Physician Documentation [facility] Name: Gibran Esquivel Age: 56 yrs Sex: Male : 1960 Arrival Date: 08/04/2016 Time: 11:18 Bed 14 Private MD: Aguila Tejeda Disposition: 08/04/16 18:08 Discharged to Home/Self Care. Impression: Osteoarthritis, unspecified site, Other chest pain - pleuritic. - Condition is Stable. - Discharge Instructions: Pleurisy, [id number]. - Medication Reconciliation, Local Pharmacy Hours, Work Release Form - 1 day form. - Follow up: Jose Mariscal; When: As previously arranged; Reason: Recheck today's complaints, Continuance of care. Follow up: Aguila Tejeda; When: Call to arrange an appointment; Reason: Recheck today's complaints. - Problem is new. - Symptoms have improved. - Notes: You were evaluated in the emergency department for chest and shoulder pain. Your laboratory results reported no acute changes. The x-ray of your shoulder reported osteoarthritis. Please keep your scheduled appointment with Dr. Mariscal as previously arranged. Please call to arrange an appointment with your primary care provider at your soonest convenience. Historical: - Allergies: codeine (itching); - Home Meds: 1. aspirin 81 mg Oral chew 1 tab once daily (Last dose: 08/04/2016) 2. atorvastatin 40 mg oral tab 1 tab once daily (Last dose: 08/04/2016) 3. lisinopril 40 mg Oral tab 1 tab twice a day (Last dose: 08/04/2016) 4. Lopressor 25 mg tablets Oral 0.5 tab 2 times per day (Last dose: 08/04/2016) 5. Plavix 75 mg Oral tab 1 tab nightly (Last dose: 08/03/2016) 6. tramadol 50 mg Oral tab 2 tabs every 6 hours (Last dose: 08/04/2016) 7. Nitrostat 0.4 mg SL subl 1 tab every 5 minutes 8. nicotine 21 mg/24 hr TD pt24 1 patch once daily - PMHx: Chronic Back pain; Kidney stones; [place]; - PSHx: Cardiac stents; back surgery; kidney stone; - Social history: Smoking status: Patient uses tobacco products, current every day smoker. No barriers to communication noted, The patient speaks fluent Lao, Speaks appropriately for age. - Family history: Not pertinent. - : The pt / caregiver states he / she is on anticoagulants: Plavix. Home medication list is obtained from the patient. - Exposure Risk Screening:: None identified. Vital Signs: 08/04 11:20 BP 147 / 77; Pulse 51; Resp 16; Temp 96.8(O); Pulse Ox 99% ; Weight 59.87 kg / 131.99 cmb lbs; Height 5 ft. 3 in. (160.02 cm); Pain 8/10; 11:26 BP 148 / 79 (auto/); ck1 11:27 Pulse 52 MON; Pulse Ox 97% ; ck1 11:41 BP 128 / 76 (auto/); ck1 11:41 Pulse 44 MON; Pulse Ox 96% ; ck1 11:56 BP 150 / 91 (auto/); ck1 11:56 Pulse 48 MON; Pulse Ox 95% ; ck1 12:11 BP 135 / 77 (auto/); ck1 12:11 Pulse 44 MON; Pulse Ox 95% ; ck1 12:25 Pulse 42 MON; Pulse Ox 95% ; ck1 12:26 BP 138 / 73 (auto/); ck1 12:41 BP 141 / 78 (auto/); ck1 12:41 Pulse 42 MON; Pulse Ox 96% ; ck1 12:52 BP 141 / 83 RA; ck1 12:52 BP 143 / 72 LA; ck1 12:56 BP 142 / 65 (auto/); ck1 12:56 Pulse 42 MON; Pulse Ox 96% ; ck1 13:11 BP 145 / 75 (auto/); ck1 13:11 Pulse 44 MON; Pulse Ox 96% ; ck1 13:26 BP 148 / 89 (auto/); ck1 13:26 Pulse 44 MON; Pulse Ox 97% ; ck1 13:41 BP 140 / 89 (auto/); ck1 13:41 Pulse 44 MON; Pulse Ox 97% ; ck1 13:56 BP 161 / 89 (auto/); ck1 13:56 Pulse 44 MON; Pulse Ox 97% ; ck1 14:11 BP 162 / 91 (auto/); ck1 14:11 Pulse 44 MON; Pulse Ox 96% ; ck1 14:26 BP 168 / 93 (auto/); ck1 14:26 Pulse 46 MON; Pulse Ox 94% ; ck1 14:41 BP 144 / 83 (auto/); ck1 14:41 Pulse 46 MON; Pulse Ox 96% ; ck1 14:56 BP 153 / 90 (auto/); ck1 14:56 Pulse 44 MON; Pulse Ox 96% ; ck1 15:04 BP 125 / 83 (auto/); ck1 15:06 Pulse 46 MON; Pulse Ox 98% ; ck1 15:19 BP 167 / 82 (auto/); ck1 15:19 Pulse 46 MON; Pulse Ox 99% ; ck1 15:34 BP 188 / 69 (auto/); ck1 15:34 Pulse 50 MON; Pulse Ox 98% ; ck1 15:49 BP 142 / 70 (auto/); ck1 15:49 Pulse 46 MON; Pulse Ox 97% ; ck1 16:04 BP 140 / 78 (auto/); ck1 16:04 Pulse 48 MON; Pulse Ox 97% ; ck1 16:05 Resp 18; Temp 98.0(O); ck1 16:19 Pulse 48 MON; Pulse Ox 99% ; ck1 16:19 BP 163 / 77 (auto/); ck1 16:34 BP 148 / 75 (auto/); ck1 16:34 Pulse 46 MON; Pulse Ox 99% ; ck1 16:49 BP 150 / 86 (auto/); ck1 16:49 Pulse 46 MON; Pulse Ox 97% ; ck1 17:04 BP 153 / 87 (auto/); ck1 17:04 Pulse 58 MON; Pulse Ox 99% ; ck1 17:09 BP 161 / 77 (auto/); ck1 17:11 Pulse 46 MON; Pulse Ox 99% ; ck1 17:24 BP 143 / 73 (auto/); ck1 17:24 Pulse 50 MON; Pulse Ox 97% ; ck1 17:39 BP 168 / 81 (auto/); ck1 17:39 Pulse 48 MON; Pulse Ox 96% ; ck1 18:24 BP 155 / 92; Pulse 51; Resp 20; Temp 97.4(O); Pulse Ox 100% on R/A; Pain 0/10; jml1 11:20 Body Mass Index 23.38 (59.87 kg, 160.02 cm) cmb MDM: 11:23 Durability Technician/Pulse Ox/q 30 min VS ordered. sd1 11:23 IV Saline Lock ordered. sd1 11:23 Rhythm Strip to chart ordered. sd1 11:23 Undress patient appropriately for examination ordered. sd1 11:24 ECG WITH READING ER PHYS+CARDIAG ordered. EDMS 11:24 Basic Metabolic Profile Ordered. EDMS 11:24 CBC with Diff Ordered. EDMS 11:24 Cardiac Injury Profile Ordered. EDMS 11:24 Troponin Ordered. EDMS 11:25 portable chest Ordered. EDMS 12:12 FT4&TSH PANEL Ordered. EDMS 12:14 CBC with Diff Reviewed. jo4 12:14 Cardiac Injury Profile Reviewed. jo4 12:14 Troponin Reviewed. jo4 12:39 Basic Metabolic Profile Reviewed. sd1 12:39 Cardiac Injury Profile Reviewed. sd1 12:39 Troponin Reviewed. sd1 12:39 FT4&TSH PANEL Reviewed. sd1 12:43 Misc. Nursing Order ordered. sd1 12:54 Shoulder, Complete Ordered. EDMS 14:05 ED course: 56 yo male h/o [place] presents reporting pleuritic intermittent chest pain sd1 without associated SOB pain began at rest was not effected by exertion no respiratory symtpome no LE symptoms no PE risk patient also reports limited ROM right shoulder unknwon trauma secondary to pain pain elicited at >90 degree adduction no sewlling warmth or redness neuro vasc intact distally plan labs xray reeval. 15:30 Redraw CIP &Troponin (put time in details section) ordered. sd1 15:34 Redraw CIP &Troponin (put time in details section) complete. jml1 15:35 CARDIAC MARKER PANEL Ordered. EDMS 15:37 [facility] Payment Agreement was scanned into [employer] and attached to record. jp5 15:37 Financial registration complete. jp5 15:39 Shoulder, Complete Reviewed. jo4 15:39 REGULAR+DIET ordered. EDMS 15:39 portable chest Reviewed. jo4 15:51 CT Chest With Contrast Ordered. EDMS 17:30 Acetaminophen Tablet 325 mg PO once ordered. jo4 17:56 Shoulder, Complete Reviewed. sd1 17:56 CT Chest With Contrast Reviewed. sd1 18:03 CARDIAC MARKER PANEL Reviewed. sd1 08/05 11:26 T-Sheet-- Draft Copy was scanned into [employer] and attached to record. gb 11:26 ECG/EKG was scanned into [employer] and attached to record. gb Administered Medications: 08/04 17:46 Drug: Acetaminophen 325 mg [acetaminophen 325 mg tablet (1 tabs)] Route: PO; ck1 Signatures: Dispatcher [employer] EDMS Evy Almonte MD MD sd1 Emma Chavira, Reg Reg gb Yumiko EnglandRN RN ck1 Yanique Montalvo RN RN kr3 Azam Downsl1 Joseph Meza jp5 Linda Garcia DO DO jo4 The chart was reviewed and I authenticate all verbal orders and agree with the evaluation and treatment provided.Corrections: (The following items were deleted from the chart) 12:12 12:04 FT4&TSH PANEL+LAB ordered. EDMS EDMS Attachments: 15:37 [facility] Payment Agreement jp5 08/05 11:26 T-Sheet-- Draft Copy gb 11:26 ECG/EKG gb Chart Complete MTDD
--- NOTE | 2016-08-06 19:29 | EDDOCDS ---
Nurse's Notes [facility] Name: Reba Esquivel Age: 56 yrs Sex: Male : 1960 Arrival Date: 08/04/2016 Time: 11:18 Bed 14 Private MD: Aguila Tejeda Diagnosis: Osteoarthritis, unspecified site;Other chest pain-pleuritic Presentation: 08/04 11:25 Presenting complaint: Patient states: chest pain for 2 days with difficulty breathing. 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 Adult Sepsis Screening: The patient does not have new or worsening altered mentation. Patient's respiratory rate is less than 22. Systolic blood pressure is greater than 100. Patient has a qSOFA score of 0- Negative Sepsis Screen. Suicide/Homicide risk assessment- the patient denies having any suicidal and/or homicidal ideations and does not present with any other emotional, behavioral or mental health complaints. Status: Patient is not a member services representative or dependent. Transition of care: patient was not received from another setting of care. 11:25 Acuity: STEFAN Level 2 kr3 11:25 Acuity: STEFAN Level 2 kr3 11:25 Method Of Arrival: Wheelchair kr3 11:29 Red Flag criteria, patient assessed and taken directly to a bed. kr3 Triage Assessment: 11:28 General: Appears uncomfortable. Pain: Location: chest and left arm Pain currently is 8 kr3 out of 10 on a pain scale. HIV screening NA for this visit Offered previously. The patient is triaged at the bedside. See Assessment in Nurses Notes section of ED record. Neurological: Level of Consciousness is awake, alert. Cardiovascular: Chest pain is described as severe, radiates to left arm(s) episodes are intermittent began 2 days ago. Respiratory: Reports shortness of breath on exertion. Derm: Skin is pink, warm & dry. Historical: - Allergies: codeine (itching); - Home Meds: 1. aspirin 81 mg Oral chew 1 tab once daily (Last dose: 08/04/2016) 2. atorvastatin 40 mg oral tab 1 tab once daily (Last dose: 08/04/2016) 3. lisinopril 40 mg Oral tab 1 tab twice a day (Last dose: 08/04/2016) 4. Lopressor 25 mg tablets Oral 0.5 tab 2 times per day (Last dose: 08/04/2016) 5. Plavix 75 mg Oral tab 1 tab nightly (Last dose: 08/03/2016) 6. tramadol 50 mg Oral tab 2 tabs every 6 hours (Last dose: 08/04/2016) 7. Nitrostat 0.4 mg SL subl 1 tab every 5 minutes 8. nicotine 21 mg/24 hr TD pt24 1 patch once daily - PMHx: Chronic Back pain; Kidney stones; RI; - PSHx: Cardiac stents; back surgery; kidney stone; - Social history: Smoking status: Patient uses tobacco products, current every day smoker. No barriers to communication noted, The patient speaks fluent Cymra[place], Speaks appropriately for age. - Family history: Not pertinent. - : The pt / caregiver states he / she is on anticoagulants: Plavix. Home medication list is obtained from the patient. - Exposure Risk Screening:: None identified. Screenin:42 Screening information is obtained from the patient. Fall risk: No risks identified. ck1 Assistance ADL's: requires no assistance with activities of daily living. Abuse/DV Screen: The patient / caregiver reports he/she is: not in a situation that causes fear, pain or injury. Nutritional screening: No deficits noted. Advance Directives: Currently, there is a health care proxy, Reba Esquivel Jr (son). home support is adequate. Assessment: 11:43 General: Appears in no apparent distress, comfortable, Behavior is appropriate for age, ck1 cooperative. Pain: Location: chest Pain currently is 8 out of 10 on a pain scale. Is intermittent. Neurological: Level of Consciousness is awake, alert, obeys commands, Oriented to person, place, time. Cardiovascular: Rhythm is sinus bradycardia. Respiratory: Reports shortness of breath cough that is dry, hacking, persistent. GI: Reports nausea. Derm: Skin is intact, is healthy with good turgor, Skin is pink, warm & dry. Musculoskeletal: No deficits noted. 12:53 General: Appears in no apparent distress, comfortable, Behavior is appropriate for age, ck1 cooperative. Pain: Location: chest Pain currently is 8 out of 10 on a pain scale. Neurological: No deficits noted. Cardiovascular: Rhythm is sinus bradycardia. Respiratory: Airway is patent Respiratory effort is even, unlabored, Respiratory pattern is regular, symmetrical. GI: No deficits noted. Derm: Skin is intact, is healthy with good turgor, Skin is pink, warm & dry. 13:04 General: Appears in no apparent distress, comfortable, Behavior is appropriate for age, mb9 cooperative. Pain:. Respiratory: Airway is patent Respiratory effort is even, unlabored. 14:05 General: Appears in no apparent distress, comfortable, Behavior is appropriate for age, ck1 cooperative. Pain: Denies pain. Neurological: Level of Consciousness is awake, alert, obeys commands, Oriented to person, place, time. Cardiovascular: Rhythm is sinus bradycardia. Respiratory: Respiratory effort is unlabored, Respiratory pattern is regular, symmetrical. GI: No deficits noted. Derm: Skin is intact, is healthy with good turgor, Skin is pink, warm & dry. Musculoskeletal: Circulation, motion, and sensation intact Range of motion intact in all extremities. 15:05 General: Patient OOB to bathroom independently. gait steady, offer no complaints of ck1 pain at this time. Call light in reach, will continue to monitor patient. 16:15 General: Appears in no apparent distress, comfortable, Behavior is appropriate for age, ck1 cooperative. Pain: Denies pain. Neurological: Level of Consciousness is awake, alert, obeys commands, Oriented to person, place, time. Cardiovascular: Rhythm is sinus bradycardia. Respiratory: Respiratory effort is unlabored, Respiratory pattern is regular, symmetrical. GI: No deficits noted. Derm: Skin is intact, is healthy with good turgor, Skin is pink, warm & dry. Musculoskeletal: Circulation, motion, and sensation intact Range of motion intact in all extremities. 17:17 General: Appears in no apparent distress, comfortable, Behavior is appropriate for age, ck1 cooperative, pleasant. Pain: Denies pain. Neurological: Level of Consciousness is awake, alert, obeys commands, Oriented to person, place, time. Cardiovascular: Rhythm is sinus bradycardia. Respiratory: Respiratory effort is unlabored, Respiratory pattern is regular, symmetrical. GI: No deficits noted. Derm: Skin is intact, is healthy with good turgor, Skin is pink, warm & dry. Musculoskeletal: Circulation, motion, and sensation intact Range of motion intact in all extremities. 18:27 General: Appears in no apparent distress, comfortable, Behavior is appropriate for age, ck1 cooperative. Pain: Denies pain. Neurological: Level of Consciousness is awake, alert, obeys commands, Oriented to person, place, time. Cardiovascular: No deficits noted. Respiratory: Respiratory effort is unlabored, Respiratory pattern is regular, symmetrical. GI: No deficits noted. Derm: Skin is intact, is healthy with good turgor, Skin is pink, warm & dry. Musculoskeletal: Circulation, motion, and sensation intact Range of motion intact in all extremities. Vital Signs: 11:20 BP 147 / 77; Pulse 51; Resp 16; Temp 96.8(O); Pulse Ox 99% ; Weight 59.87 kg; Height 5 cmb ft. 3 in. (160.02 cm); Pain 8/10; 11:26 BP 148 / 79 (auto/); ck1 11:27 Pulse 52 MON; Pulse Ox 97% ; ck1 11:41 BP 128 / 76 (auto/); ck1 11:41 Pulse 44 MON; Pulse Ox 96% ; ck1 11:56 BP 150 / 91 (auto/); ck1 11:56 Pulse 48 MON; Pulse Ox 95% ; ck1 12:11 BP 135 / 77 (auto/); ck1 12:11 Pulse 44 MON; Pulse Ox 95% ; ck1 12:25 Pulse 42 MON; Pulse Ox 95% ; ck1 12:26 BP 138 / 73 (auto/); ck1 12:41 BP 141 / 78 (auto/); ck1 12:41 Pulse 42 MON; Pulse Ox 96% ; ck1 12:52 BP 141 / 83 RA; ck1 12:52 BP 143 / 72 LA; ck1 12:56 BP 142 / 65 (auto/); ck1 12:56 Pulse 42 MON; Pulse Ox 96% ; ck1 13:11 BP 145 / 75 (auto/); ck1 13:11 Pulse 44 MON; Pulse Ox 96% ; ck1 13:26 BP 148 / 89 (auto/); ck1 13:26 Pulse 44 MON; Pulse Ox 97% ; ck1 13:41 BP 140 / 89 (auto/); ck1 13:41 Pulse 44 MON; Pulse Ox 97% ; ck1 13:56 BP 161 / 89 (auto/); ck1 13:56 Pulse 44 MON; Pulse Ox 97% ; ck1 14:11 BP 162 / 91 (auto/); ck1 14:11 Pulse 44 MON; Pulse Ox 96% ; ck1 14:26 BP 168 / 93 (auto/); ck1 14:26 Pulse 46 MON; Pulse Ox 94% ; ck1 14:41 BP 144 / 83 (auto/); ck1 14:41 Pulse 46 MON; Pulse Ox 96% ; ck1 14:56 BP 153 / 90 (auto/); ck1 14:56 Pulse 44 MON; Pulse Ox 96% ; ck1 15:04 BP 125 / 83 (auto/); ck1 15:06 Pulse 46 MON; Pulse Ox 98% ; ck1 15:19 BP 167 / 82 (auto/); ck1 15:19 Pulse 46 MON; Pulse Ox 99% ; ck1 15:34 BP 188 / 69 (auto/); ck1 15:34 Pulse 50 MON; Pulse Ox 98% ; ck1 15:49 BP 142 / 70 (auto/); ck1 15:49 Pulse 46 MON; Pulse Ox 97% ; ck1 16:04 BP 140 / 78 (auto/); ck1 16:04 Pulse 48 MON; Pulse Ox 97% ; ck1 16:05 Resp 18; Temp 98.0(O); ck1 16:19 Pulse 48 MON; Pulse Ox 99% ; ck1 16:19 BP 163 / 77 (auto/); ck1 16:34 BP 148 / 75 (auto/); ck1 16:34 Pulse 46 MON; Pulse Ox 99% ; ck1 16:49 BP 150 / 86 (auto/); ck1 16:49 Pulse 46 MON; Pulse Ox 97% ; ck1 17:04 BP 153 / 87 (auto/); ck1 17:04 Pulse 58 MON; Pulse Ox 99% ; ck1 17:09 BP 161 / 77 (auto/); ck1 17:11 Pulse 46 MON; Pulse Ox 99% ; ck1 17:24 BP 143 / 73 (auto/); ck1 17:24 Pulse 50 MON; Pulse Ox 97% ; ck1 17:39 BP 168 / 81 (auto/); ck1 17:39 Pulse 48 MON; Pulse Ox 96% ; ck1 18:24 BP 155 / 92; Pulse 51; Resp 20; Temp 97.4(O); Pulse Ox 100% on R/A; Pain 0/10; jml1 11:20 Body Mass Index 23.38 (59.87 kg, 160.02 cm) cmb Vitals: 11:20 Log In Time: August 04, 2016 at 11:15. RN notified that patient meets Red Flag cmb criteria. ED Course: :20 Patient visited by Afsaneh Ortiz. cmb 11:20 Aguila Tejeda PA is Private Physician. cmb 11:20 Patient moved to Waiting cmb 11:23 Yumiko England,BEE is Primary Nurse. kr3 11:23 Patient moved to 14 kr3 11:26 Triage Initiated kr3 11:32 Linda Garcia DO is PHCP. jo4 11:32 Evy Almonte MD is Attending Physician. jo4 11:35 Patient visited by Kurt Wheat. dem1 11:35 EKG done. (by ED staff). Reviewed by Linda Garcia DO. dem1 11:42 The patient / caregiver is instructed regarding the plan of care and ED course. Cardiac ck1 monitor on. Pulse ox on. NIBP on. 11:42 Basic Metabolic Profile Sent. ck1 11:42 CBC with Diff Sent. ck1 11:42 Cardiac Injury Profile Sent. ck1 11:42 Troponin Sent. ck1 11:42 Inserted saline lock: 20 gauge in left antecubital area and blood collected. The ck1 patient tolerated the procedure well. 11:45 Patient visited by Linda Garcia DO. jo4 11:45 Patient visited by Linda Garcia DO. jo4 12:13 FT4&TSH PANEL Sent. ck1 12:18 Patient visited by Yumiko England RN. ck1 12:49 Patient visited by Yumiko England RN. ck1 13:22 portable chest Returned. EDMS 13:32 Patient visited by Yumiko England RN. ck1 14:05 Patient visited by Yumiko England RN. ck1 14:11 Shoulder, Complete Returned. EDMS 14:22 Patient visited by Yumiko England RN. ck1 14:53 Patient visited by Yumiko England RN. ck1 15:31 Patient visited by Yumiko England RN. ck1 15:37 [facility] [place] was [place] into [employer] and attached to record. jp5 15:39 Patient visited by Yumiko England RN. ck1 15:52 Shoulder, Complete Returned. EDMS 16:05 Patient visited by Yumiko England RN. ck1 16:36 Patient visited by Yumiko England RN. ck1 17:16 Patient visited by Yumiko England RN. ck1 17:18 No procedures done that require assistance. ck1 17:26 CARDIAC MARKER PANEL Sent. ck1 17:36 CT Chest With Contrast Returned. EDMS 17:40 Patient visited by Yumiko England RN. ck1 18:06 Jose Mariscal is Referral Physician. jo4 18:06 Aguila Tejeda PA is Referral Physician. jo4 18:24 Patient visited by Azam Downs. jml1 18:26 Discontinued lock intact, bleeding controlled, pressure dressing applied, No ck1 redness/swelling at site. 20:22 portable chest Returned. EDMS 21:16 EKG-ADULT Returned. EDMS 08/05 11:26 T-Sheet-- Draft Copy was scanned into [employer] and attached to record. gb 11:26 ECG/EKG was scanned into [employer] and attached to record. gb Administered Medications: 08/04 17:46 Drug: Acetaminophen 325 mg [acetaminophen 325 mg tablet (1 tabs)] Route: PO; ck1 Order Results: Lab Order: Basic Metabolic Profile; SPEC'M 08/04/16 11:40 Test: GLUCOSE, FASTING; Value: 78; Range: 70-105; Units: MG/DL; Status: F Test: BLOOD UREA NITROGEN; Value: 21; Range: 7-18; Abnormal: Above high normal; Units: MG/DL; Status: F Test: CREATININE FOR GFR; Value: 1.01; Range: 0.70-1.30; Units: MG/DL; Status: F Test: GLOMERULAR FILTRATION RATE; Value: > 60.0; Range: >56; Status: F Test: SODIUM LEVEL; Value: 140; Range: 136-145; Units: MEQ/L; Status: F Test: POTASSIUM SERUM; Value: 4.8; Range: 3.5-5.1; Units: MEQ/L; Status: F Test: CHLORIDE LEVEL; Value: 106; Range: 98-107; Units: MEQ/L; Status: F Test: CARBON DIOXIDE LEVEL; Value: 28; Range: 21-32; Units: MEQ/L; Status: F Test: ANION GAP; Value: 6; Range: 8-16; Abnormal: Below low normal; Units: MEQ/L; Status: F Test: CALCIUM LEVEL; Value: 8.6; Range: 8.5-10.1; Units: MG/DL; Status: F Test Note: ; Units are mL/min/1.73 m2 Chronic Kidney Disease Staging per NKF: Stage I & II GFR >=60 Normal to Mildly Decreased Stage III GFR 30-59 Moderately Decreased Stage IV GFR 15-29 Severely Decreased Stage V GFR <15 Very Little GFR Left ESRD GFR <15 on VENEER [employer] Test: THYROID STIMULATING HORMONE; Range: 0.358-3.740; Units: uIU/ML; Status: I Test: FREE T4; Range: 0.76-1.46; Units: NG/DL; Status: I Lab Order: CBC with Diff; SPEC'M 08/04/16 11:40 Test: WHITE BLOOD COUNT; Value: 7.3; Range: 4.0-10.0; Units: K/mm3; Status: F Test: RED BLOOD COUNT; Value: 5.07; Range: 4.30-6.10; Units: M/mm3; Status: F Test: HEMOGLOBIN; Value: 15.1; Range: 14.0-18.0; Units: g/dl; Status: F Test: HEMATOCRIT; Value: 45.1; Range: 42.0-52.0; Units: %; Status: F Test: MEAN CORPUSCULAR VOLUME; Value: 88.9; Range: 80.0-96.0; Units: fl; Status: F Test: MEAN CORPUSCULAR HEMOGLOBIN; Value: 29.8; Range: 27.0-33.0; Units: pg; Status: F Test: MEAN CORPUSCULAR HGB CONC; Value: 33.5; Range: 32.0-36.5; Units: g/dl; Status: F Test: RED CELL DISTRIBUTION WIDTH; Value: 12.5; Range: 11.5-14.5; Units: %; Status: F Test: PLATELET COUNT, AUTOMATED; Value: 166; Range: 150-450; Units: k/mm3; Status: F Test: NEUTROPHILS %; Value: 64.8; Range: 36.0-66.0; Units: %; Status: F Test: LYMPH %; Value: 25.7; Range: 24.0-44.0; Units: %; Status: F Test: MONO %; Value: 4.8; Range: 0.0-5.0; Units: %; Status: F Test: EOS %; Value: 2.2; Range: 0.0-3.0; Units: %; Status: F Test: BASO %; Value: 0.6; Range: 0.0-1.0; Units: %; Status: F Test: LARGE UNSTAINED CELL %; Value: 1.9; Range: 0.0-4.0; Units: %; Status: F Test: NEUTROPHILS #; Value: 4.8; Range: 1.8-7.7; Units: K/mm3; Status: F Test: LYMPH #; Value: 1.9; Range: 1.5-4.5; Units: K/mm3; Status: F Test: MONO #; Value: 0.4; Range: 0.0-0.8; Units: K/mm3; Status: F Test: EOS #; Value: 0.2; Range: 0.0-0.50; Units: K/mm3; Status: F Test: BASO #; Value: 0.0; Range: 0.0-0.2; Units: K/mm3; Status: F Test: LARGE UNSTAINED CELL #; Value: 0.1; Range: 0.0-0.4; Units: K/mm3; Status: F Lab Order: Cardiac Injury Profile; SPEC'M 08/04/16 11:40 Test: CPK CREATINE PHOSPHOKINASE; Value: 83; Range: 39-308; Units: U/L; Status: F Test: CK-MB VALUE MASS; Value: 1.2; Range: 0.0-3.6; Units: NG/ML; Status: F Test: MB/CK RELATIVE INDEX; Value: 1.44; Range: < OR =4; Status: F Test Note: ; DIAGNOSIS CRITERIA MMB ng/ml Relative Index (RI) NON-AMI < or = 5 N/A STROUD ZONE > 5 < or = 4 AMI > 5 > 4 Lab Order: Troponin; SPEC'M 08/04/16 11:40 Test: TROPONIN I; Value: < 0.02; Range: < 0.10; Units: NG/ML; Status: F Test Note: ; Troponin I Reference Interval for Siemens [place] LOCI: 99th Percentile= 0.00-0.045 ng/ml Risk Stratification: <= 0.10 ng/ml Decreased Risk for Adverse Clinical Events. 0.10-1.50 ng/ml Increased Risk for Adverse Clinical Events. Evaluation of additional criterion and/or repeat testing in 2-6 hours is suggested to rule out myocardial damage. >= 1.50 ng/ml Indicative of Myocardial Injury. Lab Order: FT4&TSH PANEL; SPEC' 08/04/16 11:40 Test: THYROID STIMULATING HORMONE; Value: 1.980; Range: 0.358-3.740; Units: uIU/ML; Status: F Test: FREE T4; Value: 1.06; Range: 0.76-1.46; Units: NG/DL; Status: F Lab Order: CARDIAC MARKER PANEL; SPEC' 08/04/16 17:25 Test: CPK CREATINE PHOSPHOKINASE; Value: 67; Range: 39-308; Units: U/L; Status: F Test: CK-MB VALUE MASS; Value: 1.0; Range: 0.0-3.6; Units: NG/ML; Status: F Test: MB/CK RELATIVE INDEX; Value: 1.49; Range: < OR =4; Status: F Test: TROPONIN I; Value: < 0.02; Range: < 0.10; Units: NG/ML; Status: F Test Note: ; DIAGNOSIS CRITERIA MMB ng/ml Relative Index (RI) NON-AMI < or = 5 N/A STROUD ZONE > 5 < or = 4 AMI > 5 > 4 Radiology Order: EKG-ADULT Test: EKG-ADULT REASON FOR EXAMINATION: Chest Pain; Stationary ECG Study; [facility] - ED; ; Test Date: 2016-08-04; Pat Name: REBA ESQUIVEL Department:; Room: -; 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; : 1960 Requested By: Evy Almonte; Order Number: [id number] Reading MD: Evy Almonte; Measurements; Intervals [place]; Rate: 48 P: 49; SC: 172 QRS: 49; QRSD: 88 T: 72; QT: 432; QTc: 387; Interpretive Statements; SINUS BRADYCARDIA; PROBABLE EARLY REPOLARIZATION, CLINICAL CORRELATION RECOMMENDED; DECREASED RATE 10/10/15; Electronically Signed On 08-04-2016 20:23:05 EST by Evy Almonte; Radiology Order: portable chest Test: portable chest REASON FOR EXAMINATION: Chest Pain; PORTABLE CHEST:; ; AP portable view of the chest is performed and compared to a prior study of; 10/10/2015.; ; There is mild bibasilar fibrotic scarring. There is no acute infiltrate or; pulmonary edema. The heart is normal in size. The mediastinal silhouette is; unchanged.; ; IMPRESSION:; ; Stable chronic findings without evidence of acute infiltrate.; ; ; Signed by; Terell Stroud MD 08/04/2016 07:58 P; Radiology Order: Shoulder, Complete Test: Shoulder, Complete REASON FOR EXAMINATION: Pain, decreased ROM; RIGHT SHOULDER SERIES: Three views.; ; HISTORY: Pain and decreased range of motion.; ; FINDINGS: The right glenohumeral and acromioclavicular joints are normally; aligned. There is osteoarthritic spurring at the superior aspect of the AC; joint. No fracture is seen. No erosive change is seen. Periarticular soft; tissues are unremarkable.; ; IMPRESSION: AC joint osteoarthritis. No acute bony abnormality.; ; ; Signed by; Carlos Mendez MD 08/04/2016 03:01 P; Radiology Order: CT Chest With Contrast Test: CT Chest With Contrast REASON FOR EXAMINATION: Chest Pain; CT study of the chest with IV contrast:; ; History: Chest pain.; ; Chest CT study is compared with prior exam from 10/10/2015.; ; CT contrast dose: 75 mL of Isovue-370 is administered intravenously.; ; CT findings: There is no evidence of pleural or pericardial effusion. There are; multiple left coronary artery stents noted. The previously described mediastinal; and hilar lymph nodes have regressed. No adenopathy is seen. No adrenal lesion; is seen on either side. The visualized upper abdominal structures are; unremarkable. There is a small cyst in the left lobe of the liver measuring 7 mm; in greatest diameter unchanged. No infiltrate is seen in the lung [place]. There; is an area of pleuroparenchymal fibrosis in the right middle lobe which is; unchanged. No pulmonary nodule or mass lesion is seen. No bony destructive; lesion is seen.; ; Impression:; ; No active disease. Previously noted lymph nodes are smaller and have regressed.; Pleuroparenchymal fibrosis is seen in the right middle lobe unchanged. Status; post coronary artery stents.; ; ; Signed by; Carlos Mendez MD 08/04/2016 05:01 P; Outcome: 16:14 CT Study completed. ck1 18:08 Discharge ordered by Provider. jo4 18:27 Discharge Assessment: Patient awake, alert and oriented x 3. No cognitive and/or ck1 functional deficits noted. Patient verbalized understanding of disposition instructions. patient administered narcotics - no. The following High Risk Discharge criteria are identified: None. Discharged to home ambulatory. Condition: stable. Discharge instructions given to patient, Instructed on discharge instructions, follow up and referral plans. medication usage, Demonstrated understanding of instructions, medications, Pt was receptive of discharge instructions/ teaching. Work note provided to patient. Property :Personal belongings accompany Pt. 18:28 Patient left the ED. ck1 Signatures: Dispatcher [employer] EDMS Emma Chavira, Reg Reg Yumiko EliseRN RN ck1 Yanique Montalvo,RN RN kr3 Azam Downsl1 Kurt Wheat dem1 Afsaneh Ortiz Michael,RN RN mb9 Joseph Meza jp5 Linda Garcia DO DO jo4 Corrections: (The following items were deleted from the chart) 11:37 11:35 EKG done. (by ED staff). Reviewed by Evy Almonte MD dem1 dem1 12:12 12:11 FT4&TSH PANEL+LAB sent. ck1 EDMS Chart Complete MTDD
== END 2016-08-04 18:28 | disposition home or self-care (01) ==
LOC: M ED 11:18
DX: R07.1 Chest pain on breathing (principal); M19.90 Unspecified osteoarthritis, unspecified site; R11.0 Nausea; I25.10 Atherosclerotic heart disease of native coronary artery without angina pectoris; I25.2 Old myocardial infarction; M54.9 Dorsalgia, unspecified; G89.29 Other chronic pain; Z87.442 Personal history of urinary calculi; Z82.49 Family history of ischemic heart disease and other diseases of the circulatory system; Z79.899 Other long term (current) drug therapy; Z79.82 Long term (current) use of aspirin; Z79.01 Long term (current) use of anticoagulants; Z88.5 Allergy status to narcotic agent; F17.200 Nicotine dependence, unspecified, uncomplicated
CPT/HCPCS: 36415; 71010; 71260; 73030; 80048; 82550; 82553; 84439; 84443; 84484; 85025; 93005; 93041; 99285; Q9967

== ENCOUNTER 2016-08-31 08:48 | Emergency (ER) | payer MEDICARE ==
--- NOTE | 2016-08-31 09:41 | EDDOCDS ---
Nurse's Notes [facility] Name: Gibran Esquivel Age: 56 yrs Sex: Male : 1960 Arrival Date: 08/31/2016 Time: 08:48 Bed I2 / M2 Private MD: Aguila Tejeda Diagnosis: Nausea and vomiting-Resolved;Diarrhea, unspecified-Resolved;Acute upper respiratory infection, unspecified-Resolved Presentation: 08/31 09:00 Presenting complaint: Patient states: states that he was ill x 3 days and called in to ml6 work. Patient states that he went to work today and needs a Drs. note stating he is ok to work. Adult Sepsis Screening: The patient does not have new or worsening altered mentation. Patient's respiratory rate is less than 22. Systolic blood pressure is greater than 100. Patient has a qSOFA score of 0- Negative Sepsis Screen. Suicide/Homicide risk assessment- the patient denies having any suicidal and/or homicidal ideations and does not present with any other emotional, behavioral or mental health complaints. 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 Transition of care: patient was not received from another setting of care. 09:00 Acuity: STEFAN Level 3 ml6 09:00 Method Of Arrival: Walkin/Carried/Asstd ml6 09:04 Acuity: STEFAN Level 5 ml6 Triage Assessment: 09:04 General: Appears in no apparent distress, Behavior is appropriate for age, cooperative. ml6 Pain: Denies pain. HIV screening NA for this visit Offered previously. Neurological: No deficits noted. Cardiovascular: No deficits noted. Capillary refill < 3 seconds is brisk in bilateral fingers toes Heart tones S1 S2 present Edema is absent. Pulses are all present. Respiratory: No deficits noted. Airway is patent Respiratory effort is even, unlabored, Respiratory pattern is regular, symmetrical, Breath sounds are clear bilaterally. GI: No deficits noted. Historical: - Allergies: codeine (itching); - Home Meds: 1. aspirin 81 mg Oral chew 1 tab once daily (Last dose: 08/31/2016 07:00) 2. atorvastatin 40 mg oral tab 1 tab once daily (Last dose: 08/31/2016 07:00) 3. Lopressor 25 mg tablets Oral 0.5 tab nightly (Last dose: 08/30/2016 20:00) 4. lisinopril 40 mg Oral tab 1 tab twice a day (Last dose: 08/31/2016 07:00) 5. nicotine 21 mg/24 hr TD pt24 1 patch once daily (Last dose: 08/31/2016 09:03) 6. Nitrostat 0.4 mg SL subl 1 tab every 5 minutes (Last dose: Unknown) 7. Plavix 75 mg Oral tab 1 tab nightly (Last dose: 08/30/2016 20:00) 8. tramadol 50 mg Oral tab 2 tabs every 6 hours (Last dose: Unknown) - PMHx: Chronic Back pain; Kidney stones; [place]; - PSHx: Cardiac stents; back surgery; kidney stone; - Social history: Smoking status: Patient uses tobacco products, heavy tobacco smoker. No barriers to communication noted, Speaks appropriately for age. - Family history: Not pertinent. - : The pt / caregiver states he / she is not on anticoagulants. Home medication list is obtained from the patient. - Exposure Risk Screening:: None identified. Screenin:40 Screening information is obtained from the patient. Fall risk: No risks identified. kc3 Assistance ADL's: requires no assistance with activities of daily living. Abuse/DV Screen: The patient / caregiver reports he/she is: not in a situation that causes fear, pain or injury. Nutritional screening: No deficits noted. Advance Directives: Currently, there is no health care proxy. home support is adequate. Assessment: 09:39 General: Appears in no apparent distress, comfortable, Behavior is appropriate for age, kc3 cooperative. Pain: Denies pain. Neurological: No deficits noted. Respiratory: Respiratory effort is even, unlabored. Derm: Skin is pink, warm & dry. Vital Signs: 09:01 BP 179 / 79; Pulse 55; Resp 16; Temp 98.2(O); Pulse Ox 98% on R/A; Weight 62.6 kg (R); ml6 Height 5 ft. 3 in. (160.02 cm) (R); Pain 0/10; 09:26 BP 152 / 68 (man/); lr2 09:01 Body Mass Index 24.45 (62.60 kg, 160.02 cm) ml6 Vitals: 09: Log In Time: August 31, 2016 at 04:48. ml6 ED Course: 08:49 Patient visited by Hailey West. mm15 08:49 Aguila Tejeda PA is Private Physician. mm15 08:49 Patient moved to Waiting mm15 09:01 Triage Initiated ml6 09:04 Patient moved to I2 / M2 ml6 09:06 [facility] ef1 09:06 Evy Almonte MD is Attending Physician. ef1 09:11 Patient visited by Anny Alvarado PA-C. ef1 09:23 Aguila Tejeda PA is Referral Physician. ef1 09:31 [facility] Payment Agreement was scanned into [employer] and attached to record. mm15 09:40 The patient / caregiver is instructed regarding the plan of care and ED course. kc3 09:40 No IV's were initiated during this patient's visit. No procedures done that require kc3 assistance. Order Results: There are currently no results for this order. Outcome: 09:23 Discharge ordered by Provider. ef1 09:40 Discharge Assessment: Patient awake, alert and oriented x 3. No cognitive and/or kc3 functional deficits noted. Patient verbalized understanding of disposition instructions. patient administered narcotics - no. The following High Risk Discharge criteria are identified: None. Discharged to home ambulatory. Condition: stable. Discharge instructions given to patient, Instructed on discharge instructions, follow up and referral plans. Demonstrated understanding of instructions, Pt was receptive of discharge instructions/ teaching. Work note provided to patient. No special radiology studies were completed. Property :Personal belongings accompany Pt. 09:40 Patient left the ED. kc3 Signatures: Anny Alvarado PA-C PA-C ef1 Mike Gerber, RN RN ml6 Hailey West mm15 Bianca Owen,BEE RN kc3 Juana Shaffer lr2 MTDD
--- NOTE | 2016-08-31 09:41 | EDDOCDS ---
Physician Documentation [facility] Name: Gibran Esquivel Age: 56 yrs Sex: Male : 1960 Arrival Date: 08/31/2016 Time: 08:48 Bed I2 / M2 Private MD: Aguila Tejeda Disposition: 08/31/16 09:23 Discharged to Home/Self Care. Impression: Nausea and vomiting - Resolved, Diarrhea, unspecified - Resolved, Acute upper respiratory infection, unspecified - Resolved. - Condition is Stable. - Discharge Instructions: Diarrhea, Nausea and Vomiting, Upper Respiratory Infection, Adult, [id number]. - Work Release Form - 1 day, Medication Reconciliation, Local Pharmacy Hours form. - Follow up: Aguila Tejeda; When: 1 - 2 days; Reason: Recheck today's complaints, Continuance of care. Follow up: Emergency Department; Reason: Worsening of conditions. - Problem is new. - Symptoms have improved. Historical: - Allergies: codeine (itching); - Home Meds: 1. aspirin 81 mg Oral chew 1 tab once daily (Last dose: 08/31/2016 07:00) 2. atorvastatin 40 mg oral tab 1 tab once daily (Last dose: 08/31/2016 07:00) 3. Lopressor 25 mg tablets Oral 0.5 tab nightly (Last dose: 08/30/2016 20:00) 4. lisinopril 40 mg Oral tab 1 tab twice a day (Last dose: 08/31/2016 07:00) 5. nicotine 21 mg/24 hr TD pt24 1 patch once daily (Last dose: 08/31/2016 09:03) 6. Nitrostat 0.4 mg SL subl 1 tab every 5 minutes (Last dose: Unknown) 7. Plavix 75 mg Oral tab 1 tab nightly (Last dose: 08/30/2016 20:00) 8. tramadol 50 mg Oral tab 2 tabs every 6 hours (Last dose: Unknown) - PMHx: Chronic Back pain; Kidney stones; [place]; - PSHx: Cardiac stents; back surgery; kidney stone; - Social history: Smoking status: Patient uses tobacco products, heavy tobacco smoker. No barriers to communication noted, Speaks appropriately for age. - Family history: Not pertinent. - : The pt / caregiver states he / she is not on anticoagulants. Home medication list is obtained from the patient. - Exposure Risk Screening:: None identified. Vital Signs: 08/31 09:01 BP 179 / 79; Pulse 55; Resp 16; Temp 98.2(O); Pulse Ox 98% on R/A; Weight 62.6 kg / ml6 138.01 lbs (R); Height 5 ft. 3 in. (160.02 cm) (R); Pain 0/10; 09:26 BP 152 / 68 (man/); lr2 09:01 Body Mass Index 24.45 (62.60 kg, 160.02 cm) ml6 MDM: 09:23 Recheck B/P ordered. ef1 09:23 Financial registration complete. mm15 09:31 [facility] Payment Agreement was scanned into [employer] and attached to record. mm15 Signatures: Anny Alvarado, MUNDOC PABob ef1 Mike Gerber, RN RN ml6 Hailey West mm15 Bianca Owen,RN RN kc3 The chart was reviewed and I authenticate all verbal orders and agree with the evaluation and treatment provided.Attachments: 09:31 [facility] Payment Agreement mm15 MTDD
--- NOTE | 2016-09-02 10:41 | EDDOCDS ---
Nurse's Notes [facility] Name: Gibran Esquivel Age: 56 yrs Sex: Male : 1960 Arrival Date: 08/31/2016 Time: 08:48 Bed I2 / M2 Private MD: Aguila Tejeda Diagnosis: Nausea and vomiting-Resolved;Diarrhea, unspecified-Resolved;Acute upper respiratory infection, unspecified-Resolved Presentation: 08/31 09:00 Presenting complaint: Patient states: states that he was ill x 3 days and called in to ml6 work. Patient states that he went to work today and needs a Drs. note stating he is ok to work. Adult Sepsis Screening: The patient does not have new or worsening altered mentation. Patient's respiratory rate is less than 22. Systolic blood pressure is greater than 100. Patient has a qSOFA score of 0- Negative Sepsis Screen. Suicide/Homicide risk assessment- the patient denies having any suicidal and/or homicidal ideations and does not present with any other emotional, behavioral or mental health complaints. 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 Transition of care: patient was not received from another setting of care. 09:00 Acuity: STEFAN Level 3 ml6 09:00 Method Of Arrival: Walkin/Carried/Asstd ml6 09:04 Acuity: STEFAN Level 5 ml6 Triage Assessment: 09:04 General: Appears in no apparent distress, Behavior is appropriate for age, cooperative. ml6 Pain: Denies pain. HIV screening NA for this visit Offered previously. Neurological: No deficits noted. Cardiovascular: No deficits noted. Capillary refill < 3 seconds is brisk in bilateral fingers toes Heart tones S1 S2 present Edema is absent. Pulses are all present. Respiratory: No deficits noted. Airway is patent Respiratory effort is even, unlabored, Respiratory pattern is regular, symmetrical, Breath sounds are clear bilaterally. GI: No deficits noted. Historical: - Allergies: codeine (itching); - Home Meds: 1. aspirin 81 mg Oral chew 1 tab once daily (Last dose: 08/31/2016 07:00) 2. atorvastatin 40 mg oral tab 1 tab once daily (Last dose: 08/31/2016 07:00) 3. Lopressor 25 mg tablets Oral 0.5 tab nightly (Last dose: 08/30/2016 20:00) 4. lisinopril 40 mg Oral tab 1 tab twice a day (Last dose: 08/31/2016 07:00) 5. nicotine 21 mg/24 hr TD pt24 1 patch once daily (Last dose: 08/31/2016 09:03) 6. Nitrostat 0.4 mg SL subl 1 tab every 5 minutes (Last dose: Unknown) 7. Plavix 75 mg Oral tab 1 tab nightly (Last dose: 08/30/2016 20:00) 8. tramadol 50 mg Oral tab 2 tabs every 6 hours (Last dose: Unknown) - PMHx: Chronic Back pain; Kidney stones; [place]; - PSHx: Cardiac stents; back surgery; kidney stone; - Social history: Smoking status: Patient uses tobacco products, heavy tobacco smoker. No barriers to communication noted, Speaks appropriately for age. - Family history: Not pertinent. - : The pt / caregiver states he / she is not on anticoagulants. Home medication list is obtained from the patient. - Exposure Risk Screening:: None identified. Screenin:40 Screening information is obtained from the patient. Fall risk: No risks identified. kc3 Assistance ADL's: requires no assistance with activities of daily living. Abuse/DV Screen: The patient / caregiver reports he/she is: not in a situation that causes fear, pain or injury. Nutritional screening: No deficits noted. Advance Directives: Currently, there is no health care proxy. home support is adequate. Assessment: 09:39 General: Appears in no apparent distress, comfortable, Behavior is appropriate for age, kc3 cooperative. Pain: Denies pain. Neurological: No deficits noted. Respiratory: Respiratory effort is even, unlabored. Derm: Skin is pink, warm & dry. Vital Signs: 09:01 BP 179 / 79; Pulse 55; Resp 16; Temp 98.2(O); Pulse Ox 98% on R/A; Weight 62.6 kg (R); ml6 Height 5 ft. 3 in. (160.02 cm) (R); Pain 0/10; 09:26 BP 152 / 68 (man/); lr2 09:01 Body Mass Index 24.45 (62.60 kg, 160.02 cm) ml6 Vitals: 09: Log In Time: August 31, 2016 at 04:48. ml6 ED Course: 08:49 Patient visited by Hailey West. mm15 08:49 Aguila Tejeda PA is Private Physician. mm15 08:49 Patient moved to Waiting mm15 09:01 Triage Initiated ml6 09:04 Patient moved to I2 / M2 ml6 09:06 An[facility] Alvarado [facility]-C [facility]. ef1 09:06 Evy Almonte MD is Attending Physician. ef1 09:11 Patient visited by Anny Alvarado PA-C. ef1 09:23 Aguila Tejeda PA is Referral Physician. ef1 09:31 [facility] Payment Agreement was scanned into [employer] and attached to record. mm15 09:40 The patient / caregiver is instructed regarding the plan of care and ED course. kc3 09:40 No IV's were initiated during this patient's visit. No procedures done that require kc3 assistance. 14:58 T-Sheet-- Draft Copy was scanned into [employer] and attached to record. gb Order Results: There are currently no results for this order. Outcome: 09:23 Discharge ordered by Provider. ef1 09:40 Discharge Assessment: Patient awake, alert and oriented x 3. No cognitive and/or kc3 functional deficits noted. Patient verbalized understanding of disposition instructions. patient administered narcotics - no. The following High Risk Discharge criteria are identified: None. Discharged to home ambulatory. Condition: stable. Discharge instructions given to patient, Instructed on discharge instructions, follow up and referral plans. Demonstrated understanding of instructions, Pt was receptive of discharge instructions/ teaching. Work note provided to patient. No special radiology studies were completed. Property :Personal belongings accompany Pt. 09:40 Patient left the ED. kc3 Signatures: Emma Chavira, Reg Reg gb Anny Alvarado PA-C PA-C ef1 Mike Gerber, RN RN Hailey Alonzo mm15 Bianca Owen,BEE RN oral3 Juana Shaffer2 Chart Complete MTDD
--- NOTE | 2016-09-02 10:41 | EDDOCDS ---
Physician Documentation [facility] Name: Gibran Esquivel Age: 56 yrs Sex: Male : 1960 Arrival Date: 08/31/2016 Time: 08:48 Bed I2 / M2 Private MD: Aguila Tejeda Disposition: 08/31/16 09:23 Discharged to Home/Self Care. Impression: Nausea and vomiting - Resolved, Diarrhea, unspecified - Resolved, Acute upper respiratory infection, unspecified - Resolved. - Condition is Stable. - Discharge Instructions: Diarrhea, Nausea and Vomiting, Upper Respiratory Infection, Adult, [id number]. - Work Release Form - 1 day, Medication Reconciliation, Local Pharmacy Hours form. - Follow up: Aguila Tejeda; When: 1 - 2 days; Reason: Recheck today's complaints, Continuance of care. Follow up: Emergency Department; Reason: Worsening of conditions. - Problem is new. - Symptoms have improved. Historical: - Allergies: codeine (itching); - Home Meds: 1. aspirin 81 mg Oral chew 1 tab once daily (Last dose: 08/31/2016 07:00) 2. atorvastatin 40 mg oral tab 1 tab once daily (Last dose: 08/31/2016 07:00) 3. Lopressor 25 mg tablets Oral 0.5 tab nightly (Last dose: 08/30/2016 20:00) 4. lisinopril 40 mg Oral tab 1 tab twice a day (Last dose: 08/31/2016 07:00) 5. nicotine 21 mg/24 hr TD pt24 1 patch once daily (Last dose: 08/31/2016 09:03) 6. Nitrostat 0.4 mg SL subl 1 tab every 5 minutes (Last dose: Unknown) 7. Plavix 75 mg Oral tab 1 tab nightly (Last dose: 08/30/2016 20:00) 8. tramadol 50 mg Oral tab 2 tabs every 6 hours (Last dose: Unknown) - PMHx: Chronic Back pain; Kidney stones; [place]; - PSHx: Cardiac stents; back surgery; kidney stone; - Social history: Smoking status: Patient uses tobacco products, heavy tobacco smoker. No barriers to communication noted, Speaks appropriately for age. - Family history: Not pertinent. - : The pt / caregiver states he / she is not on anticoagulants. Home medication list is obtained from the patient. - Exposure Risk Screening:: None identified. Vital Signs: 08/31 09:01 BP 179 / 79; Pulse 55; Resp 16; Temp 98.2(O); Pulse Ox 98% on R/A; Weight 62.6 kg / ml6 138.01 lbs (R); Height 5 ft. 3 in. (160.02 cm) (R); Pain 0/10; 09:26 BP 152 / 68 (man/); lr2 09:01 Body Mass Index 24.45 (62.60 kg, 160.02 cm) ml6 MDM: 09:23 Recheck B/P ordered. ef1 09:23 Financial registration complete. mm15 : [facility] Payment Agreement was scanned into [employer] and attached to record. mm15 14:58 T-Sheet-- Draft Copy was scanned into [employer] and attached to record. gb Signatures: Emma Chavira, Reg Reg gb Anny Alvarado, MUNDOC PABob ef1 Mike Gerber, RN RN ml6 Hailey West mm15 Bianca Owen,RN RN kc3 The chart was reviewed and I authenticate all verbal orders and agree with the evaluation and treatment provided.Attachments: [facility] Payment Agreement mm15 :58 T-Sheet-- Draft Copy gb Chart Complete MTDD
--- NOTE | 2016-09-02 10:41 | EDDOCDS ---
Physician Documentation [facility] Name: Gibran Esquivel Age: 56 yrs Sex: Male : 1960 Arrival Date: 08/31/2016 Time: 08:48 Bed I2 / M2 Private MD: Aguila Tejeda Disposition: 08/31/16 09:23 Discharged to Home/Self Care. Impression: Nausea and vomiting - Resolved, Diarrhea, unspecified - Resolved, Acute upper respiratory infection, unspecified - Resolved. - Condition is Stable. - Discharge Instructions: Diarrhea, Nausea and Vomiting, Upper Respiratory Infection, Adult, [id number]. - Work Release Form - 1 day, Medication Reconciliation, Local Pharmacy Hours form. - Follow up: Aguila Tejeda; When: 1 - 2 days; Reason: Recheck today's complaints, Continuance of care. Follow up: Emergency Department; Reason: Worsening of conditions. - Problem is new. - Symptoms have improved. Historical: - Allergies: codeine (itching); - Home Meds: 1. aspirin 81 mg Oral chew 1 tab once daily (Last dose: 08/31/2016 07:00) 2. atorvastatin 40 mg oral tab 1 tab once daily (Last dose: 08/31/2016 07:00) 3. Lopressor 25 mg tablets Oral 0.5 tab nightly (Last dose: 08/30/2016 20:00) 4. lisinopril 40 mg Oral tab 1 tab twice a day (Last dose: 08/31/2016 07:00) 5. nicotine 21 mg/24 hr TD pt24 1 patch once daily (Last dose: 08/31/2016 09:03) 6. Nitrostat 0.4 mg SL subl 1 tab every 5 minutes (Last dose: Unknown) 7. Plavix 75 mg Oral tab 1 tab nightly (Last dose: 08/30/2016 20:00) 8. tramadol 50 mg Oral tab 2 tabs every 6 hours (Last dose: Unknown) - PMHx: Chronic Back pain; Kidney stones; [place]; - PSHx: Cardiac stents; back surgery; kidney stone; - Social history: Smoking status: Patient uses tobacco products, heavy tobacco smoker. No barriers to communication noted, Speaks appropriately for age. - Family history: Not pertinent. - : The pt / caregiver states he / she is not on anticoagulants. Home medication list is obtained from the patient. - Exposure Risk Screening:: None identified. Vital Signs: 08/31 09:01 BP 179 / 79; Pulse 55; Resp 16; Temp 98.2(O); Pulse Ox 98% on R/A; Weight 62.6 kg / ml6 138.01 lbs (R); Height 5 ft. 3 in. (160.02 cm) (R); Pain 0/10; 09:26 BP 152 / 68 (man/); lr2 09:01 Body Mass Index 24.45 (62.60 kg, 160.02 cm) ml6 MDM: 09:23 Recheck B/P ordered. ef1 09:23 Financial registration complete. mm15 : [facility] Payment Agreement was scanned into [employer] and attached to record. mm15 14:58 T-Sheet-- Draft Copy was scanned into [employer] and attached to record. gb Signatures: Emma Chavira, Reg Reg gb Anny Alvarado, MUNDOC PABob ef1 Mike Gerber, RN RN ml6 Hailey West mm15 Bianca Owen,RN RN kc3 The chart was reviewed and I authenticate all verbal orders and agree with the evaluation and treatment provided.Attachments: [facility] Payment Agreement mm15 :58 T-Sheet-- Draft Copy gb Chart Complete MTDD
== END 2016-08-31 09:40 | disposition home or self-care (01) ==
LOC: M ED 08:48
DX: Z00.00 Encounter for general adult medical examination without abnormal findings (principal); G89.29 Other chronic pain; M54.9 Dorsalgia, unspecified; I25.2 Old myocardial infarction; Z87.442 Personal history of urinary calculi; Z95.5 Presence of coronary angioplasty implant and graft; Z72.0 Tobacco use; Z79.82 Long term (current) use of aspirin; Z79.899 Other long term (current) drug therapy; Z79.02 Long term (current) use of antithrombotics/antiplatelets; Z88.5 Allergy status to narcotic agent

== ENCOUNTER → 2016-10-07 | Outpatient (CLI) | payer MEDICARE | LOC: M LAB 15:12 | PROVIDERS: ATTEND Nurse Practitioner Family | DX: N52.9 Male erectile dysfunction, unspecified (principal) ==

== ENCOUNTER → 2016-10-18 | Outpatient (CLI) | payer MEDICARE | LOC: M LAB 10:39 | PROVIDERS: ATTEND Nurse Practitioner Family | DX: E29.1 Testicular hypofunction (principal) ==

== ENCOUNTER 2016-12-21 11:54 | Emergency (ER) | payer MEDICARE, OTHER ==
[~2016-12-21] VITALS: Ht 160 cm; Wt 59.4 kg
[2016-12-21] MEDS ORDERED: TRAM50TA2 PO (12:03)
[2016-12-21] MEDS ORDERED: CLOP75TA2 PO (12:03)
[2016-12-21] MEDS ORDERED: ATOR40TA PO (12:03)
[2016-12-21] MEDS ORDERED: GABA-283 PO (12:03)
[2016-12-21] MEDS ORDERED: METO-346 PO (12:03)
[2016-12-21] MEDS ORDERED: ONDANSETRON 4MG/2ML VIAL (J2405) IV ONE (13:15)
[2016-12-21] MEDS ORDERED: KETOROLAC 30 MG/ML VIAL (J1885) IV ONE (13:15)
[2016-12-21 13:57] LABS: BASO % 0.3 % (0.0-1.0); EOS # 0.2 K/mm3 (0.0-0.50); EOS % 1.2 % (0.0-3.0); LARGE UNSTAINED CELL # 0.2 K/mm3 (0.0-0.4); LARGE UNSTAINED CELL % 1.4 % (0.0-4.0); LYMPH # 1.3 K/mm3 (1.5-4.5); LYMPH % 8.2 % (24.0-44.0); MEAN CORPUSCULAR HEMOGLOBIN 30.5 pg (27.0-33.0); MEAN CORPUSCULAR HGB CONC 33.9 g/dl (32.0-36.5); MONO # 0.6 K/mm3 (0.0-0.8); MONO % 4.7 % (0.0-5.0); NEUTROPHILS # 11.2 K/mm3 (1.8-7.7); NEUTROPHILS % 84.2 % (36.0-66.0); PLATELET COUNT, AUTOMATED 192 k/mm3 (150-450); RED CELL DISTRIBUTION WIDTH 12.7 % (11.5-14.5); WHITE BLOOD COUNT 13.3 K/mm3 (4.0-10.0)
[2016-12-21 14:24] LABS: ALBUMIN 3.5 GM/DL (3.2-5.2); ALBUMIN/GLOBULIN RATIO 1.17 (1.00-1.93); ALKALINE PHOSPHATASE 72 U/L (45-117); ALT/SGPT 22 U/L (12-78); ANION GAP 8 MEQ/L (8-16); AST/SGOT 15 U/L (15-37); BILIRUBIN,DIRECT 0.1 MG/DL (0.0-0.2); BILIRUBIN,TOTAL 0.5 MG/DL (0.2-1.0); BLOOD UREA NITROGEN 23 MG/DL (7-18); CALCIUM LEVEL 8.9 MG/DL (8.5-10.1); CARBON DIOXIDE LEVEL 28 MEQ/L (21-32); CHLORIDE LEVEL 105 MEQ/L (98-107); CREATININE FOR GFR 1.09 MG/DL (0.70-1.30); GLOMERULAR FILTRATION RATE > 60.0 (>56); GLUCOSE, FASTING 74 MG/DL (70-105); POTASSIUM SERUM 4.6 MEQ/L (3.5-5.1); SODIUM LEVEL 141 MEQ/L (136-145); TOTAL PROTEIN 6.5 GM/DL (6.4-8.2)
--- NOTE | 2016-12-21 14:32 | REP ---
CT ABDOMEN AND PELVIS WITHOUT CONTRAST: CT abdomen and pelvis is performed without or IV contrast and compared to multiple prior exams. The visualized lung bases demonstrate acute interstitial infiltrate in the left lower lobe. The liver demonstrates a couple of subcentimeter hypodensities, one in the right lobe and one in the left lobe, probably representing tiny cysts. The gallbladder is grossly unremarkable. Spleen, adrenals, pancreas and kidneys are unremarkable. There is no evidence of renal, ureteral or bladder calculus and no hydroureteronephrosis. There is mild ectasia of the distal abdominal aorta with a maximum AP diameter of 2.8 cm. There are moderate atherosclerotic calcifications of the abdominal aorta. There is no adenopathy, free air or free fluid. No bowel wall thickening is seen. The appendix is normal. No pelvic mass is seen. The urinary bladder is not well distended and not well evaluated. IMPRESSION: Acute interstitial infiltrate in the left lung base. No evidence of renal or ureteral calculus and no hydroureteronephrosis. No appendicitis. Signed by Terell Stroud MD 12/21/2016 05:13 P
[2016-12-21] MEDS ORDERED: ALBU17IN2 INH (14:39)
[2016-12-21] MEDS ORDERED: AVEL1TAB PO (14:39)
[2016-12-21 14:54] VITALS: BP 103/67
== END 2016-12-21 15:01 | disposition home or self-care (01) ==
LOC: M ED 13:21
DX: J18.9 Pneumonia, unspecified organism (principal); I51.9 Heart disease, unspecified; F17.200 Nicotine dependence, unspecified, uncomplicated; Z95.1 Presence of aortocoronary bypass graft; Z87.442 Personal history of urinary calculi; Z79.899 Other long term (current) drug therapy; Z88.5 Allergy status to narcotic agent
CPT/HCPCS: 36415; 74176; 80048; 80076; 81001; 83690; 85025; 87086; 96374; 96375; 99283; J1885; J2405

== ENCOUNTER 2017-03-10 19:05 | Emergency (ER) | payer MEDICARE ==
[~2017-03-10] VITALS: Ht 160 cm; Wt 135.0 kg
[~2017-03-10 19:05] MED LIST changes: +ALBU17IN2 INH; +ATOR40TA75 PO; +AVEL1TAB3 PO; +CLOP75TA2 PO; +GABA-283 PO; +METO-346 PO; +TRAM50TA2 PO
[2017-03-10] MEDS ORDERED: ONDANSETRON 4MG/2ML VIAL (J2405) IV ONE (19:45)
[2017-03-10] MEDS ORDERED: NS 1,000 ML IV ONE (19:45)
[2017-03-10] MEDS ORDERED: KETOROLAC 30 MG/ML VIAL (J1885) IV ONE (19:45)
[2017-03-10 20:10] LABS: BASO % 0.6 % (0.0-1.0); EOS # 0.2 K/mm3 (0.0-0.50); EOS % 3.3 % (0.0-3.0); LARGE UNSTAINED CELL # 0.2 K/mm3 (0.0-0.4); LYMPH # 1.9 K/mm3 (1.5-4.5); LYMPH % 22.3 % (24.0-44.0); MEAN CORPUSCULAR HEMOGLOBIN 30.9 pg (27.0-33.0); MEAN CORPUSCULAR HGB CONC 34.3 g/dl (32.0-36.5); MEAN CORPUSCULAR VOLUME 90.1 fl (80.0-96.0); MONO # 0.4 K/mm3 (0.0-0.8); MONO % 5.3 % (0.0-5.0); NEUTROPHILS # 5.1 K/mm3 (1.8-7.7); NEUTROPHILS % 66.5 % (36.0-66.0); PLATELET COUNT, AUTOMATED 159 k/mm3 (150-450); RED CELL DISTRIBUTION WIDTH 13.1 % (11.5-14.5); WHITE BLOOD COUNT 7.7 K/mm3 (4.0-10.0)
[2017-03-10 20:42] LABS: ALBUMIN 3.8 GM/DL (3.2-5.2); ALBUMIN/GLOBULIN RATIO 1.19 (1.00-1.93); ALKALINE PHOSPHATASE 67 U/L (45-117); ALT/SGPT 48 U/L (12-78); AMYLASE 62 U/L (25-115); ANION GAP 7 MEQ/L (8-16); AST/SGOT 24 U/L (15-37); BILIRUBIN,DIRECT < 0.1 MG/DL (0.0-0.2); BILIRUBIN,TOTAL 0.2 MG/DL (0.2-1.0); BLOOD UREA NITROGEN 21 MG/DL (7-18); CALCIUM LEVEL 9.1 MG/DL (8.5-10.1); CARBON DIOXIDE LEVEL 26 MEQ/L (21-32); CHLORIDE LEVEL 109 MEQ/L (98-107); CREATININE FOR GFR 0.84 MG/DL (0.70-1.30); GLOMERULAR FILTRATION RATE > 60.0 (>56); GLUCOSE, FASTING 75 MG/DL (70-105); POTASSIUM SERUM 4.3 MEQ/L (3.5-5.1); SODIUM LEVEL 142 MEQ/L (136-145)
[2017-03-10 21:45] VITALS: BP 170/91
== END 2017-03-10 21:46 | disposition home or self-care (01) ==
LOC: M ED 19:05
DX: M54.5 Low back pain (principal); I25.10 Atherosclerotic heart disease of native coronary artery without angina pectoris; I25.2 Old myocardial infarction; I10 Essential (primary) hypertension; Z87.442 Personal history of urinary calculi; Z95.5 Presence of coronary angioplasty implant and graft; F17.200 Nicotine dependence, unspecified, uncomplicated; Z79.899 Other long term (current) drug therapy; Z88.5 Allergy status to narcotic agent
CPT/HCPCS: 80048; 80076; 81001; 82150; 83690; 85025; 96374; 96375; 99283; J1885; J2405

== ENCOUNTER → 2017-03-16 | Outpatient (CLI) | payer MEDICARE ==
[2017-03-16 13:41] LABS: ALBUMIN 3.6 GM/DL (3.2-5.2); ALBUMIN/GLOBULIN RATIO 1.33 (1.00-1.93); ALKALINE PHOSPHATASE 71 U/L (45-117); ALT/SGPT 33 U/L (12-78); ANION GAP 8 MEQ/L (8-16); AST/SGOT 17 U/L (15-37); BILIRUBIN,TOTAL 0.2 MG/DL (0.2-1.0); BLOOD UREA NITROGEN 21 MG/DL (7-18); CALCIUM LEVEL 8.9 MG/DL (8.5-10.1); CARBON DIOXIDE LEVEL 25 MEQ/L (21-32); CHLORIDE LEVEL 111 MEQ/L (98-107); CHOLESTEROL LEVEL 164 MG/DL (<200); CREATININE FOR GFR 0.83 MG/DL (0.70-1.30); GLOMERULAR FILTRATION RATE > 60.0 (>56); GLUCOSE, FASTING 83 MG/DL (70-105); POTASSIUM SERUM 4.5 MEQ/L (3.5-5.1); SODIUM LEVEL 144 MEQ/L (136-145); TOTAL PROTEIN 6.3 GM/DL (6.4-8.2); TRIGLYCERIDES LEVEL 104 MG/DL (<150)
== END ==
LOC: M LAB 12:24
PROVIDERS: ATTEND Nurse Practitioner Family
DX: I10 Essential (primary) hypertension (principal)

== ENCOUNTER 2017-05-24 16:15 | Emergency (ER) | payer MEDICARE, SELFPAY ==
[~2017-05-24] VITALS: Ht 160 cm; Wt 63.6 kg
[2017-05-24] MEDS ORDERED: GABA-282 PO (16:31)
[2017-05-24] MEDS ORDERED: GABA-283 PO (16:31)
[2017-05-24] MEDS ORDERED: LISI-538 PO (16:31)
[2017-05-24] MEDS ORDERED: NS 1,000 ML IV SCH (16:40)
[2017-05-24] MEDS ORDERED: ASPIRIN 81 MG CHEW TABLET PO ONE (16:45)
[2017-05-24 17:01] LABS: BASO % 0.3 % (0.0-1.0); EOS # 0.2 10^3/uL (0.0-0.50); EOS % 3.2 % (0.0-3.0); IMMATURE GRANULOCYTE % 0.3 % (0-0); LYMPH # 1.9 10^3/uL (1.5-4.5); LYMPH % 26.4 % (24.0-44.0); MEAN CORPUSCULAR HGB CONC 33.5 g/dl (32.0-36.5); MEAN CORPUSCULAR VOLUME 89.5 fl (80.0-96.0); MONO # 0.5 10^3/uL (0.0-0.8); MONO % 7.2 % (0.0-5.0); NEUTROPHILS # 4.6 10^3/uL (1.8-7.7); NEUTROPHILS % 62.6 % (36.0-66.0); PLATELET COUNT, AUTOMATED 173 10^3/uL (150-450); RED CELL DISTRIBUTION WIDTH 12.1 % (11.5-14.5); VENOUS BASE EXCESS -1.5 (-2.0-2.0); VENOUS O2 SATURATION 87.7 % (60.0-80.0); VENOUS PARTIAL PRESSURE O2 52.9 mmHg (30.0-50.0); VENOUS TOTAL CO2 26.2 MEQ/L (24.0-28.0); WHITE BLOOD COUNT 7.3 10^3/uL (4.0-10.0)
[2017-05-24] MEDS: NITROGLYCERIN 0.4 MG SUBL TABLET SL PRN ×3 (17:04→17:16)
[2017-05-24 17:16] VITALS: BP 141/83
[2017-05-24 17:17] LABS: INR 1.04
[2017-05-24 17:27] LABS: ALBUMIN 3.7 GM/DL (3.2-5.2); ALBUMIN/GLOBULIN RATIO 1.48 (1.00-1.93); ALKALINE PHOSPHATASE 72 U/L (45-117); ALT/SGPT 21 U/L (12-78); ANION GAP 6 MEQ/L (8-16); AST/SGOT 12 U/L (7-37); BILIRUBIN,DIRECT < 0.1 MG/DL (0.0-0.2); BILIRUBIN,TOTAL 0.2 MG/DL (0.2-1.0); BLOOD UREA NITROGEN 20 MG/DL (7-18); CALCIUM LEVEL 8.6 MG/DL (8.5-10.1); CARBON DIOXIDE LEVEL 26 MEQ/L (21-32); CHLORIDE LEVEL 109 MEQ/L (98-107); CREATININE FOR GFR 0.92 MG/DL (0.70-1.30); GLOMERULAR FILTRATION RATE > 60.0 (>56); GLUCOSE, FASTING 88 MG/DL (70-105); POTASSIUM SERUM 4.1 MEQ/L (3.5-5.1); SODIUM LEVEL 141 MEQ/L (136-145); TOTAL PROTEIN 6.2 GM/DL (6.4-8.2)
--- NOTE | 2017-05-24 17:51 | REP ---
AP PORTABLE CHEST: 05/24/2017. Comparison: 08/04/2016. Clinical history: Chest pain. Findings: The AP portable chest has slight lordotic projection. This may limit evaluation of the posterior lower lung zones. No gross effusion, infiltrate, atelectasis or mass. Heart, mediastinal and hilar contours are normal. Airway and aorta intact. Bony thorax grossly intact. Impression: 1. Negative portable chest. Signed by Babar Bartlett MD 05/24/2017 08:01 P
[2017-05-24 18:32] VITALS: BP 128/81
--- NOTE | 2017-05-24 18:38 | ECGEPIP ---
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
== END 2017-05-24 18:49 | disposition home or self-care (01) ==
LOC: M ED 16:15
DX: I20.8 Other forms of angina pectoris (principal); I45.2 Bifascicular block; I51.9 Heart disease, unspecified; I10 Essential (primary) hypertension; E78.5 Hyperlipidemia, unspecified; F17.200 Nicotine dependence, unspecified, uncomplicated; Z79.899 Other long term (current) drug therapy; Z88.5 Allergy status to narcotic agent

== ENCOUNTER 2017-10-23 13:04 | Emergency (ER) | payer OTHER, SELFPAY ==
[2017-10-23 13:48] LABS: KETONE, URINE AUTO RFX NEGATIVE (NEGATIVE); LEUKOCYTE ESTERASE UR AUTO RFX NEGATIVE (NEGATIVE); MUCUS, URINE RFX SMALL (NEGATIVE); NITRITE, URINE AUTO RFX NEGATIVE (NEGATIVE); RBC, URINE AUTO RFX 2 /HPF (0-3); SPECIFIC GRAVITY UR AUTO RFX 1.023 (1.002-1.035); SQUAM EPITHELIAL CELL UR AURFX 0 /HPF (0-6); WBC, URINE AUTO RFX 0 /HPF (0-3)
== END 2017-10-23 15:08 | disposition home or self-care (01) ==
LOC: M ED 13:04
DX: M54.5 Low back pain (principal); I10 Essential (primary) hypertension; E78.5 Hyperlipidemia, unspecified; Z87.442 Personal history of urinary calculi
CPT/HCPCS: 74176

== ENCOUNTER 2017-11-06 15:07 | Emergency (ER) | payer OTHER ==
[2017-11-06] MEDS ORDERED: methylPREDNISolone INJ 125 MG/2 ML VIAL (J2930) As Ordered (15:38)
[2017-11-06] MEDS: methylPREDNISolone INJ 125 MG/2 ML VIAL (J2930) IV (15:41)
[2017-11-06] MEDS: ALBUTEROL SULFATE 2.5 MG/0.5 ML INH NEB SOLN INH (15:42)
[2017-11-06] MEDS ORDERED: ACETAMINOPHEN TAB 650MG DOSE (2X325MG) As Ordered (16:28)
[2017-11-06] MEDS: ACETAMINOPHEN TAB 650MG DOSE (2X325MG) PO (16:31)
== END 2017-11-06 17:21 | disposition home or self-care (01) ==
LOC: M ED 15:07
DX: Z77.098 Contact with and (suspected) exposure to other hazardous, chiefly nonmedicinal, chemicals (principal); J98.01 Acute bronchospasm; J44.9 Chronic obstructive pulmonary disease, unspecified; I11.9 Hypertensive heart disease without heart failure; I25.10 Atherosclerotic heart disease of native coronary artery without angina pectoris; F41.9 Anxiety disorder, unspecified; M54.5 Low back pain; G89.29 Other chronic pain; I25.2 Old myocardial infarction; Z95.5 Presence of coronary angioplasty implant and graft; F17.210 Nicotine dependence, cigarettes, uncomplicated; Z88.5 Allergy status to narcotic agent; Z79.899 Other long term (current) drug therapy; Z79.02 Long term (current) use of antithrombotics/antiplatelets
CPT/HCPCS: J2930

== ENCOUNTER → 2017-11-06 | Outpatient (CLI) | payer OTHER | LOC: M LRY 14:38 | DX: R07.9 Chest pain, unspecified (principal) ==

== ENCOUNTER 2017-12-29 10:20 | Emergency (ER) | payer OTHER ==
[2017-12-29] MEDS: ONDANSETRON 4MG/2ML VIAL (J2405) IV (11:10)
[2017-12-29 11:19] LABS: KETONE, URINE AUTO RFX NEGATIVE (NEGATIVE); LEUKOCYTE ESTERASE UR AUTO RFX NEGATIVE (NEGATIVE); MUCUS, URINE RFX SMALL (NEGATIVE); NITRITE, URINE AUTO RFX NEGATIVE (NEGATIVE); RBC, URINE AUTO RFX 2 /HPF (0-3); SPECIFIC GRAVITY UR AUTO RFX 1.017 (1.002-1.035); SQUAM EPITHELIAL CELL UR AURFX 0 /HPF (0-6); WBC, URINE AUTO RFX 1 /HPF (0-3)
[2017-12-29 11:25] LABS: BASO % 0.4 % (0.0-1.0); EOS # 0.2 10^3/uL (0.0-0.50); EOS % 2.6 % (0.0-3.0); HEMATOCRIT 45.2 % (42.0-52.0); HEMOGLOBIN 15.7 g/dl (13.5-17.5); IMMATURE GRANULOCYTE % 0.4 % (0-3.0); LYMPH # 1.8 10^3/uL (1.5-4.5); LYMPH % 21.8 % (24.0-44.0); MEAN CORPUSCULAR HEMOGLOBIN 29.9 pg (27.0-33.0); MEAN CORPUSCULAR HGB CONC 34.7 g/dl (32.0-36.5); MEAN CORPUSCULAR VOLUME 86.1 fl (80.0-96.0); MONO # 0.5 10^3/uL (0.0-0.8); MONO % 6.2 % (0.0-5.0); NEUTROPHILS # 5.8 10^3/uL (1.8-7.7); NEUTROPHILS % 68.6 % (36.0-66.0); PLATELET COUNT, AUTOMATED 167 10^3/uL (150-450); RED BLOOD COUNT 5.25 10^6/uL (4.30-6.10); RED CELL DISTRIBUTION WIDTH 12.6 % (11.5-14.5); WHITE BLOOD COUNT 8.4 10^3/uL (4.0-10.0)
[2017-12-29 11:41] LABS: ALBUMIN 3.9 GM/DL (3.2-5.2); ALBUMIN/GLOBULIN RATIO 1.44 (1.00-1.93); ALKALINE PHOSPHATASE 80 U/L (45-117); ALT/SGPT 25 U/L (12-78); AMYLASE 45 U/L (25-115); ANION GAP 4 MEQ/L (8-16); AST/SGOT 28 U/L (7-37); BILIRUBIN,DIRECT < 0.1 MG/DL (0.0-0.2); BILIRUBIN,TOTAL 0.5 MG/DL (0.2-1.0); BLOOD UREA NITROGEN 16 MG/DL (7-18); CALCIUM LEVEL 8.6 MG/DL (8.5-10.1); CARBON DIOXIDE LEVEL 27 MEQ/L (21-32); CHLORIDE LEVEL 113 MEQ/L (98-107); CREATININE FOR GFR 0.72 MG/DL (0.70-1.30); GLOMERULAR FILTRATION RATE > 60.0 (>56); GLUCOSE, FASTING 80 MG/DL (70-100); LIPASE 99 U/L (73-393); POTASSIUM SERUM 4.4 MEQ/L (3.5-5.1); SODIUM LEVEL 144 MEQ/L (136-145); TOTAL PROTEIN 6.6 GM/DL (6.4-8.2); TROPONIN I < 0.02 NG/ML (< 0.10)
[2017-12-29] MEDS: GI COCKTAIL 50ML BTL(HYOSCYAMINE/MAALOX/LIDOCAINE VISCOUS)(1:3:1) PO (11:56)
== END 2017-12-29 12:55 | disposition home or self-care (01) ==
LOC: M ED 10:20
DX: K29.00 Acute gastritis without bleeding (principal); M54.9 Dorsalgia, unspecified; F17.200 Nicotine dependence, unspecified, uncomplicated; Z79.899 Other long term (current) drug therapy; Z79.02 Long term (current) use of antithrombotics/antiplatelets; Z87.442 Personal history of urinary calculi
CPT/HCPCS: J2405

== ENCOUNTER 2018-05-14 10:37 | Emergency (ER) | payer SELFPAY, OTHER ==
[2018-05-14 11:55] LABS: BASO % 0.4 % (0.0-1.0); EOS # 0.3 10^3/uL (0.0-0.50); EOS % 3.9 % (0.0-3.0); HEMATOCRIT 44.2 % (42.0-52.0); HEMOGLOBIN 15.3 g/dl (13.5-17.5); IMMATURE GRANULOCYTE % 0.4 % (0-3.0); LYMPH % 25.1 % (24.0-44.0); MEAN CORPUSCULAR HEMOGLOBIN 29.9 pg (27.0-33.0); MEAN CORPUSCULAR HGB CONC 34.6 g/dl (32.0-36.5); MEAN CORPUSCULAR VOLUME 86.5 fl (80.0-96.0); MONO # 0.5 10^3/uL (0.0-0.8); MONO % 6.2 % (0.0-5.0); PLATELET COUNT, AUTOMATED 181 10^3/uL (150-450); RED BLOOD COUNT 5.11 10^6/uL (4.30-6.10); RED CELL DISTRIBUTION WIDTH 12.5 % (11.5-14.5); WHITE BLOOD COUNT 7.8 10^3/uL (4.0-10.0)
[2018-05-14] MEDS: ASPIRIN 81 MG CHEW TABLET PO (12:09)
[2018-05-14] MEDS: ONDANSETRON 4MG/2ML VIAL (J2405) IV (12:09)
[2018-05-14] MEDS: MORPHINE 4 MG/ML 1ML VIAL/SYRINGE (J2270) IV (12:09)
[2018-05-14 12:31] LABS: ANION GAP 6 MEQ/L (8-16); BLOOD UREA NITROGEN 14 MG/DL (7-18); CALCIUM LEVEL 8.8 MG/DL (8.5-10.1); CARBON DIOXIDE LEVEL 27 MEQ/L (21-32); CHLORIDE LEVEL 108 MEQ/L (98-107); CPK CREATINE PHOSPHOKINASE 125 U/L (39-308); CREATININE FOR GFR 0.62 MG/DL (0.70-1.30); GLOMERULAR FILTRATION RATE > 60.0 (>56); GLUCOSE, FASTING 63 MG/DL (70-100); SODIUM LEVEL 141 MEQ/L (136-145); TROPONIN I < 0.02 NG/ML (< 0.10)
[2018-05-14] MEDS ORDERED: ISOVUE-370 76% 100ML VIAL (Q9967) As Ordered (13:22)
[2018-05-14 13:42] LABS: BEDSIDE GLUCOSE 109 MG/DL (70-105)
== END 2018-05-14 14:34 | disposition home or self-care (01) ==
LOC: M ED 10:37
DX: R07.9 Chest pain, unspecified (principal); R06.02 Shortness of breath; I10 Essential (primary) hypertension; I25.10 Atherosclerotic heart disease of native coronary artery without angina pectoris; E78.5 Hyperlipidemia, unspecified; I25.2 Old myocardial infarction; Z88.5 Allergy status to narcotic agent; F17.210 Nicotine dependence, cigarettes, uncomplicated
CPT/HCPCS: J2270

== ENCOUNTER 2018-07-25 06:05 | Emergency (ER) | payer OTHER, SELFPAY ==
[~2018-07-25] VITALS: Ht 160 cm; Wt 63.6 kg
[~2018-07-25 06:05] MED LIST changes: +AMLO5TAB6 PO; -GABA-283 PO; +GABA-843 PO; +GABA-845 PO; +OMEP40CA2 PO; +SIME1CAP PO
[2018-07-25 06:45] LABS: BASO % 0.4 % (0.0-1.0); EOS # 0.3 10^3/uL (0.0-0.50); EOS % 3.3 % (0.0-3.0); HEMATOCRIT 45.2 % (42.0-52.0); HEMOGLOBIN 15.6 g/dl (13.5-17.5); LYMPH # 1.9 10^3/uL (1.5-4.5); LYMPH % 21.8 % (24.0-44.0); MEAN CORPUSCULAR HEMOGLOBIN 30.1 pg (27.0-33.0); MEAN CORPUSCULAR HGB CONC 34.5 g/dl (32.0-36.5); MEAN CORPUSCULAR VOLUME 87.1 fl (80.0-96.0); MONO # 0.5 10^3/uL (0.0-0.8); MONO % 5.7 % (0.0-5.0); NEUTROPHILS # 5.8 10^3/uL (1.8-7.7); NEUTROPHILS % 68.6 % (36.0-66.0); PLATELET COUNT, AUTOMATED 192 10^3/uL (150-450); RED BLOOD COUNT 5.19 10^6/uL (4.30-6.10); WHITE BLOOD COUNT 8.5 10^3/uL (4.0-10.0)
[2018-07-25] MEDS ORDERED: ONDANSETRON 4 MG ORAL DISINTEGRATING TAB (Q0162 PER 1MG) PO ONE (06:45)
[2018-07-25] MEDS ORDERED: IPRATROPIUM 0.5MG/ALBUTEROL 2.5MG INH SOL UD 3ML (DUONEB)(J7620) NEB ONE (06:45)
--- NOTE | 2018-07-25 06:57 | REP ---
Clinical: Cough and chills with shortness of breath . Comparison: 05/14/2018 . Technique: PA and lateral. Findings: The mediastinum and cardiac silhouette are normal. The lung morocho are clear and without acute consolidation, effusion, or pneumothorax. The skeletal structures are intact and normal. Impression: 1. No acute cardiopulmonary process. Electronically Signed by Ken Barreto MD 07/25/2018 06:50 A
[2018-07-25 07:09] LABS: BLOOD UREA NITROGEN 19 MG/DL (7-18); CALCIUM LEVEL 8.7 MG/DL (8.8-10.2); CARBON DIOXIDE LEVEL 25 MEQ/L (21-32); CHLORIDE LEVEL 108 MEQ/L (98-107); CPK CREATINE PHOSPHOKINASE 73 U/L (39-308); CREATININE FOR GFR 0.84 MG/DL (0.70-1.30); GLOMERULAR FILTRATION RATE > 60.0 (>49); GLUCOSE, FASTING 115 MG/DL (70-100); MB/CK RELATIVE INDEX 1.64 (< OR =4); POTASSIUM SERUM 3.6 MEQ/L (3.5-5.1); SODIUM LEVEL 144 MEQ/L (136-145); TROPONIN I < 0.02 NG/ML (< 0.10)
[2018-07-25 07:16] LABS: INFLUENZA A AMPLIFICATION NEGATIVE (NEGATIVE); INFLUENZA B AMPLIFICATION NEGATIVE (NEGATIVE)
[2018-07-25] MEDS ORDERED: VENTAER INH (07:24)
[2018-07-25] MEDS ORDERED: ONDA4TAB6 PO (07:24)
[2018-07-25] MEDS ORDERED: BENZ200C70 PO (07:24)
[2018-07-25 07:41] VITALS: BP 131/80
--- NOTE | 2018-07-25 14:52 | ECGEPIP ---
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
== END 2018-07-25 07:42 | disposition home or self-care (01) ==
LOC: M ED 06:05
DX: J06.9 Acute upper respiratory infection, unspecified (principal); J05.0 Acute obstructive laryngitis [croup]
CPT/HCPCS: 71046; 80048; 82550; 82553; 84484; 85025; 87631; 93005; 94640; 99284; Q0162

== ENCOUNTER 2018-08-21 17:45 | Emergency (ER) | payer SELFPAY ==
[~2018-08-21] VITALS: Ht 160 cm; Wt 57.7 kg
[~2018-08-21 17:45] MED LIST changes: +BENZ200C70 PO; +ONDA4TAB6 PO; +VENTAER INH
[2018-08-21] MEDS ORDERED: GABA600T4 PO (17:57)
[2018-08-21] MEDS ORDERED: METO1TAB87 PO (17:57)
[2018-08-21] MEDS ORDERED: MORPHINE 2 MG/ML 1ML SYRINGE (J2270) IV PRN (18:45)
[2018-08-21 18:48] LABS: BASO % 0.4 % (0.0-1.0); EOS # 0.4 10^3/uL (0.0-0.50); EOS % 3.6 % (0.0-3.0); HEMATOCRIT 47.5 % (42.0-52.0); HEMOGLOBIN 16.3 g/dl (13.5-17.5); LYMPH # 2.1 10^3/uL (1.5-4.5); LYMPH % 21.3 % (24.0-44.0); MEAN CORPUSCULAR HEMOGLOBIN 29.9 pg (27.0-33.0); MEAN CORPUSCULAR HGB CONC 34.3 g/dl (32.0-36.5); MONO # 0.7 10^3/uL (0.0-0.8); MONO % 6.8 % (0.0-5.0); NEUTROPHILS # 6.6 10^3/uL (1.8-7.7); NEUTROPHILS % 67.6 % (36.0-66.0); PLATELET COUNT, AUTOMATED 215 10^3/uL (150-450); RED BLOOD COUNT 5.46 10^6/uL (4.30-6.10); WHITE BLOOD COUNT 9.7 10^3/uL (4.0-10.0)
[2018-08-21 19:03] LABS: PROTHROMBIN TIME 13.3 SECONDS (12.1-14.4)
[2018-08-21 19:04] LABS: ALBUMIN 3.7 GM/DL (3.2-5.2); ALT/SGPT 23 U/L (12-78); BILIRUBIN,DIRECT 0.1 MG/DL (0.0-0.2); BILIRUBIN,TOTAL 0.2 MG/DL (0.2-1.0); BLOOD UREA NITROGEN 18 MG/DL (7-18); C REACTIVE PROTEIN QUANTITATIV 0.42 MG/DL (0.00-0.30); CALCIUM LEVEL 8.2 MG/DL (8.8-10.2); CARBON DIOXIDE LEVEL 27 MEQ/L (21-32); CHLORIDE LEVEL 109 MEQ/L (98-107); CPK CREATINE PHOSPHOKINASE 123 U/L (39-308); CREATININE FOR GFR 0.83 MG/DL (0.70-1.30); GLOMERULAR FILTRATION RATE > 60.0 (>49); GLUCOSE, FASTING 96 MG/DL (70-100); MB/CK RELATIVE INDEX 2.11 (< OR =4); NT-PRO BNP 95 PG/ML (<125); PARTIAL THROMBOPLASTIN TIME 32.3 SECONDS (25.4-37.6); POTASSIUM SERUM 3.9 MEQ/L (3.5-5.1); SODIUM LEVEL 140 MEQ/L (136-145); TOTAL PROTEIN 6.9 GM/DL (6.4-8.2); TROPONIN I < 0.02 NG/ML (< 0.10)
[2018-08-21 19:06] LABS: D-DIMER QUANT 577.96 ng/ml (<500)
[2018-08-21] MEDS ORDERED: ONDANSETRON 4MG/2ML VIAL (J2405) IV ONE (19:15)
[2018-08-21] MEDS ORDERED: ISOVUE-370 76% 100ML VIAL (Q9967) As Ordered ONE (19:23)
--- NOTE | 2018-08-21 20:03 | REPVR ---
EXAM: CT Angiography Chest With Contrast EXAM DATE/TIME: 08/21/2018 7:28 PM CLINICAL HISTORY: 58 years old, male; Pain; Chest pain TECHNIQUE: Axial computed tomographic angiography images of the chest with intravenous contrast using CT angiography protocol. All CT scans at this facility use at least one of these dose optimization techniques: automated exposure control; mA and/or kV adjustment per patient size (includes targeted exams where dose is matched to clinical indication); or iterative reconstruction. Coronal and sagittal reformatted images were created and reviewed. MIP reconstructed images were created and reviewed. CONTRAST: 100 ml of ISOVUE 370 administered intravenously. COMPARISON: CT ANGIO CHEST 05/14/2018 1:15 PM FINDINGS: Pulmonary arteries: No pulmonary embolus. Aorta: The aorta demonstrates mild atherosclerotic calcification. No aortic aneurysm. Evaluation for dissection limited in the absence of dense opacification of the thoracic aorta. Lungs: Scattered subpleural noncalcified parenchymal nodules measure less than 4 mm likely post inflammatory. Followup not necessary. Pleural space: Small blebs right apex. Minimal apical pleural-parenchymal scarring right greater than left. Heart: Normal. No cardiomegaly. No pericardial effusion. Lymph nodes: Unremarkable. No enlarged lymph nodes. Bones/joints: Unremarkable. No acute fracture. Soft tissues: Unremarkable. IMPRESSION: 1. No aortic aneurysm. Evaluation for dissection limited in the absence of dense opacification of the thoracic aorta. 2. No pulmonary embolus. Electronically signed by: Aguila Briceno On 08/21/2018 20:02:32 PM
[2018-08-21 20:46] VITALS: BP 145/87
--- NOTE | 2018-08-22 12:08 | REP ---
CHEST: Single view. There is no evidence of acute infiltrate. No pleural effusion is seen. The heart is normal in size. The mediastinal silhouette is unremarkable. The visualized osseous structures are intact. IMPRESSION: No acute pulmonary disease. Electronically Signed by Terell Stroud MD 08/22/2018 11:32 P
--- NOTE | 2018-08-23 18:35 | ECGEPIP ---
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
== END 2018-08-21 21:15 | disposition home or self-care (01) ==
LOC: M ED 17:45
DX: R07.89 Other chest pain (principal); R94.31 Abnormal electrocardiogram [ECG] [EKG]; I10 Essential (primary) hypertension; F17.200 Nicotine dependence, unspecified, uncomplicated; Z95.5 Presence of coronary angioplasty implant and graft; Z79.82 Long term (current) use of aspirin; Z88.5 Allergy status to narcotic agent; Z79.01 Long term (current) use of anticoagulants; Z79.899 Other long term (current) drug therapy
CPT/HCPCS: 36415; 71045; 71275; 80048; 80076; 82550; 82553; 83880; 84443; 84484; 85025; 85379; 85610; 85730; 86140; 93005; 93041; 94760; 96374; 96375; 99285; J2270; J2405; Q9967

== ENCOUNTER 2018-10-09 10:18 | Emergency (ER) | payer SELFPAY ==
[~2018-10-09] VITALS: Ht 160 cm; Wt 66.8 kg
[~2018-10-09 10:18] MED LIST changes: +GABA600T4 PO; +METO1TAB87 PO
[2018-10-09] MEDS ORDERED: ONDANSETRON 4MG/2ML VIAL (J2405) IV ONE (10:45)
[2018-10-09] MEDS ORDERED: ASPIRIN 81 MG CHEW TABLET PO ONE (10:45)
[2018-10-09] MEDS: MORPHINE 2 MG/ML 1ML SYRINGE (J2270) IV PRN ×2 (10:52→13:23)
[2018-10-09 10:54] LABS: BASO # 0.1 10^3/uL (0.0-0.2); BASO % 0.6 % (0.0-1.0); EOS # 0.3 10^3/uL (0.0-0.50); EOS % 2.9 % (0.0-3.0); HEMATOCRIT 47.7 % (42.0-52.0); HEMOGLOBIN 16.2 g/dl (13.5-17.5); LYMPH # 2.1 10^3/uL (1.5-4.5); LYMPH % 20.9 % (24.0-44.0); MEAN CORPUSCULAR HEMOGLOBIN 29.2 pg (27.0-33.0); MEAN CORPUSCULAR VOLUME 86.1 fl (80.0-96.0); MONO # 0.6 10^3/uL (0.0-0.8); MONO % 6.2 % (0.0-5.0); NEUTROPHILS # 6.8 10^3/uL (1.8-7.7); NEUTROPHILS % 69.1 % (36.0-66.0); PLATELET COUNT, AUTOMATED 198 10^3/uL (150-450); RED BLOOD COUNT 5.54 10^6/uL (4.30-6.10); WHITE BLOOD COUNT 9.9 10^3/uL (4.0-10.0)
--- NOTE | 2018-10-09 10:57 | REP ---
Clinical: Chest pain . Comparison: 08/21/2018 . Findings: The mediastinum and cardiac silhouette are stable and within normal limits for portable technique. The lung morocho are clear without acute consolidation, effusion, or pneumothorax. Skeletal structures are intact. Impression: No acute cardiopulmonary process appreciated. Electronically Signed by Ken Barreto MD 10/09/2018 10:49 A
[2018-10-09 11:04] LABS: INR 0.96; PROTHROMBIN TIME 12.9 SECONDS (12.1-14.4)
[2018-10-09 11:05] LABS: PARTIAL THROMBOPLASTIN TIME 33.6 SECONDS (25.4-37.6)
[2018-10-09 11:35] LABS: ALBUMIN 3.8 GM/DL (3.2-5.2); ALT/SGPT 24 U/L (12-78); BILIRUBIN,DIRECT < 0.1 MG/DL (0.0-0.2); BILIRUBIN,TOTAL 0.4 MG/DL (0.2-1.0); BLOOD UREA NITROGEN 17 MG/DL (7-18); CARBON DIOXIDE LEVEL 25 MEQ/L (21-32); CHLORIDE LEVEL 110 MEQ/L (98-107); CPK CREATINE PHOSPHOKINASE 121 U/L (39-308); CREATININE FOR GFR 0.77 MG/DL (0.70-1.30); FREE T4 1.11 NG/DL (0.76-1.46); GLOMERULAR FILTRATION RATE > 60.0 (>49); GLUCOSE, FASTING 82 MG/DL (70-100); LIPASE 100 U/L (73-393); MB/CK RELATIVE INDEX 1.57 (< OR =4); NT-PRO BNP 66 PG/ML (<125); POTASSIUM SERUM 4.6 MEQ/L (3.5-5.1); SODIUM LEVEL 142 MEQ/L (136-145); TOTAL PROTEIN 7.2 GM/DL (6.4-8.2); TROPONIN I < 0.02 NG/ML (< 0.10)
[2018-10-09] MEDS ORDERED: ISOVUE-370 76% 125ML VIAL (Q9967 PER ML) As Ordered ONE (12:02)
--- NOTE | 2018-10-09 12:26 | REP ---
Clinical: Acute chest pain. Technique: Axial contrast enhanced images from the thoracic inlet to the upper abdomen using 100 ml Isovue 370 intravenous contrast material with coronal and sagittal re-formations. Findings: Satisfactory enhancement of the pulmonary vasculature is achieved and no filling defects are identified to suggest pulmonary embolus. Small area of consolidation along the anteromedial left upper lobe should be correlated with symptoms. No effusion. No pneumothorax. No significant adenopathy. Thoracic aorta is normal caliber without aneurysm or dissection. Heart and pericardium are normal. Impression: No evidence for pulmonary embolus. Small area of consolidation along the anteromedial left upper lobe. Electronically Signed by Ken Barreto MD 10/09/2018 12:18 P
--- NOTE | 2018-10-09 12:37 | ECGEPIP ---
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
[2018-10-09] MEDS ORDERED: MOXIFLOXACIN 400 MG TAB PO ONE (13:00)
[2018-10-09 14:05] LABS: CPK CREATINE PHOSPHOKINASE 91 U/L (39-308); MB/CK RELATIVE INDEX 2.09 (< OR =4); TROPONIN I < 0.02 NG/ML (< 0.10)
[2018-10-09] MEDS ORDERED: DOXY100C37 PO (14:14)
[2018-10-09] MEDS ORDERED: ASPI-255 PO (14:15)
[2018-10-09 14:31] VITALS: BP 144/86
--- NOTE | 2018-10-09 19:15 | ECGEPIP ---
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
== END 2018-10-09 14:40 | disposition home or self-care (01) ==
LOC: M ED 10:18
DX: R07.9 Chest pain, unspecified (principal); J18.9 Pneumonia, unspecified organism; R94.31 Abnormal electrocardiogram [ECG] [EKG]; I25.2 Old myocardial infarction; I10 Essential (primary) hypertension; E78.5 Hyperlipidemia, unspecified; K21.9 Gastro-esophageal reflux disease without esophagitis; F17.200 Nicotine dependence, unspecified, uncomplicated; Z79.01 Long term (current) use of anticoagulants; Z79.899 Other long term (current) drug therapy; Z95.5 Presence of coronary angioplasty implant and graft; Z88.5 Allergy status to narcotic agent
CPT/HCPCS: 71045; 71275; 80048; 80076; 82550; 82553; 83690; 83880; 84439; 84443; 84484; 85025; 85610; 85730; 93005; 93041; 94760; 96374; 96375; 96376; 99285; J2270; J2405; Q9967

== ENCOUNTER 2018-11-19 10:28 | Emergency (ER) | payer SELFPAY ==
[~2018-11-19] VITALS: Ht 160 cm; Wt 67.9 kg
[~2018-11-19 10:28] MED LIST changes: +ASPI-255 PO; +DOXY100C37 PO
[2018-11-19 11:18] LABS: BASO % 0.4 % (0.0-1.0); EOS # 0.3 10^3/uL (0.0-0.50); EOS % 3.1 % (0.0-3.0); HEMATOCRIT 49.2 % (42.0-52.0); HEMOGLOBIN 16.4 g/dl (13.5-17.5); LYMPH # 1.8 10^3/uL (1.5-4.5); LYMPH % 19.7 % (24.0-44.0); MEAN CORPUSCULAR HEMOGLOBIN 29.7 pg (27.0-33.0); MEAN CORPUSCULAR HGB CONC 33.3 g/dl (32.0-36.5); MONO # 0.6 10^3/uL (0.0-0.8); MONO % 6.3 % (0.0-5.0); NEUTROPHILS # 6.5 10^3/uL (1.8-7.7); NEUTROPHILS % 70.3 % (36.0-66.0); PLATELET COUNT, AUTOMATED 193 10^3/uL (150-450); RED BLOOD COUNT 5.53 10^6/uL (4.30-6.10); WHITE BLOOD COUNT 9.2 10^3/uL (4.0-10.0)
[2018-11-19 11:32] LABS: BLOOD UREA NITROGEN 14 MG/DL (7-18); CALCIUM LEVEL 8.9 MG/DL (8.8-10.2); CARBON DIOXIDE LEVEL 29 MEQ/L (21-32); CHLORIDE LEVEL 108 MEQ/L (98-107); CREATININE FOR GFR 0.85 MG/DL (0.70-1.30); GLOMERULAR FILTRATION RATE > 60.0 (>49); GLUCOSE, FASTING 82 MG/DL (70-100); POTASSIUM SERUM 4.1 MEQ/L (3.5-5.1); SODIUM LEVEL 141 MEQ/L (136-145)
--- NOTE | 2018-11-19 12:33 | REP ---
URINARY TRACT SONOGRAPHY: HISTORY: Gross hematuria. History of ureteral calculus. Comparison CT study: October 23, 2017 SONOGRAPHIC FINDINGS: Scanning at the level of the urinary bladder demonstrates emptying ureteral jets from both ureters on color Doppler interrogation. The filled bladder volume is calculated at 126.5 mL. Prostate dimensions are 3.5 x 2.8 x 4.8 cm on transabdominal sonography, calculated glandular volume 24.6 mL. Renal cortical echogenicity pattern is normal, and renal contours are smooth bilaterally. There is a tiny cyst in the left kidney measuring 0.7 cm in greatest diameter. No masses seen. No calculus is observed. Right renal dimensions are 10.1 x 5.4 x 4.1 cm. Left renal dimensions are 10.6 x 4.8 x 5.8 cm. IMPRESSION: Tiny cyst left kidney. Mildly enlarged prostate. Otherwise normal urinary tract sonography. Electronically Signed by Carlos Mendez MD 11/19/2018 03:30 P
[2018-11-19 12:43] VITALS: BP 175/90
[2018-11-19] MEDS ORDERED: KEFL500C17 PO (12:44)
== END 2018-11-19 12:49 | disposition home or self-care (01) ==
LOC: M ED 10:28
DX: N30.01 Acute cystitis with hematuria (principal); N28.1 Cyst of kidney, acquired; N40.0 Benign prostatic hyperplasia without lower urinary tract symptoms; I25.2 Old myocardial infarction; I10 Essential (primary) hypertension; E78.00 Pure hypercholesterolemia, unspecified; K21.9 Gastro-esophageal reflux disease without esophagitis; Z87.442 Personal history of urinary calculi; F17.200 Nicotine dependence, unspecified, uncomplicated; Z88.5 Allergy status to narcotic agent; Z79.899 Other long term (current) drug therapy

== ENCOUNTER 2018-11-28 17:08 | Emergency (ER) | payer SELFPAY ==
[~2018-11-28] VITALS: Ht 160 cm; Wt 65.0 kg
[~2018-11-28 17:08] MED LIST changes: +KEFL500C17 PO
[2018-11-28] MEDS ORDERED: METO200T28 PO (17:14)
[2018-11-28 17:43] LABS: BASO % 0.3 % (0.0-1.0); EOS # 0.2 10^3/uL (0.0-0.50); EOS % 1.4 % (0.0-3.0); HEMATOCRIT 42.9 % (42.0-52.0); HEMOGLOBIN 14.6 g/dl (13.5-17.5); LYMPH # 2.1 10^3/uL (1.5-4.5); LYMPH % 14.5 % (24.0-44.0); MEAN CORPUSCULAR HEMOGLOBIN 29.3 pg (27.0-33.0); MEAN CORPUSCULAR VOLUME 86.1 fl (80.0-96.0); MONO # 0.8 10^3/uL (0.0-0.8); MONO % 5.3 % (0.0-5.0); NEUTROPHILS # 11.2 10^3/uL (1.8-7.7); NEUTROPHILS % 78.2 % (36.0-66.0); PLATELET COUNT, AUTOMATED 205 10^3/uL (150-450); RED BLOOD COUNT 4.98 10^6/uL (4.30-6.10); WHITE BLOOD COUNT 14.4 10^3/uL (4.0-10.0)
[2018-11-28 17:56] LABS: INR 1.05; PROTHROMBIN TIME 13.8 SECONDS (12.1-14.4)
[2018-11-28 17:57] LABS: PARTIAL THROMBOPLASTIN TIME 32.7 SECONDS (25.4-37.6)
[2018-11-28 18:21] LABS: ALBUMIN 3.5 GM/DL (3.2-5.2); ALT/SGPT 16 U/L (12-78); BILIRUBIN,DIRECT < 0.1 MG/DL (0.0-0.2); BILIRUBIN,TOTAL 0.4 MG/DL (0.2-1.0); BLOOD UREA NITROGEN 14 MG/DL (7-18); CALCIUM LEVEL 8.8 MG/DL (8.8-10.2); CARBON DIOXIDE LEVEL 30 MEQ/L (21-32); CHLORIDE LEVEL 105 MEQ/L (98-107); CPK CREATINE PHOSPHOKINASE 113 U/L (39-308); CREATININE FOR GFR 0.76 MG/DL (0.70-1.30); FREE T4 1.18 NG/DL (0.76-1.46); GLOMERULAR FILTRATION RATE > 60.0 (>49); GLUCOSE, FASTING 82 MG/DL (70-100); LIPASE 477 U/L (73-393); MB/CK RELATIVE INDEX 1.68 (< OR =4); POTASSIUM SERUM 3.9 MEQ/L (3.5-5.1); SODIUM LEVEL 140 MEQ/L (136-145); TOTAL PROTEIN 7.4 GM/DL (6.4-8.2); TROPONIN I < 0.02 NG/ML (< 0.10)
--- NOTE | 2018-11-28 18:25 | REP ---
CHEST, PORTABLE: AP portable view of the chest is performed and compared to prior study of 10/09/2018. There is no acute infiltrate. The is mild bibasilar fibro atelectatic change. The heart is normal in size. The mediastinal silhouette is unchanged. IMPRESSION: No acute infiltrate. Electronically Signed by Terell Stroud MD 11/28/2018 07:57 P
[2018-11-28] MEDS ORDERED: ONDANSETRON 4MG/2ML VIAL (J2405) IV ONE (18:30)
[2018-11-28] MEDS ORDERED: MORPHINE 4 MG/ML 1ML VIAL/SYRINGE (J2270) IV ONE (18:30)
[2018-11-28] MEDS ORDERED: ISOVUE-370 76% 100ML VIAL (Q9967) As Ordered ONE (18:55)
--- NOTE | 2018-11-28 19:37 | REP ---
CERVICAL SPINE SERIES: Eight views of the cervical spine are performed. There is no compression fracture. There is no malalignment. There is mild spurring of C5 and C6 with mild disc space narrowing at C5-6 and C6-7. There is diffuse narrowing, sclerosis and spurring at the posterior facet joints. There may be a mild degree of neural foraminal narrowing on the left at C3-4 and C6-7. IMPRESSION: Degenerative changes as above. Electronically Signed by Terell Stroud MD 11/28/2018 08:03 P
--- NOTE | 2018-11-28 19:38 | REP ---
RIGHT SHOULDER, THREE VIEWS: Three views of the right shoulder were performed. There is mild narrowing and spurring at the glenohumeral and acromioclavicular joints. No other abnormalities are seen. IMPRESSION: Mild degenerative changes without fracture or dislocation. Electronically Signed by Terell Stroud MD 11/28/2018 08:03 P
[2018-11-28 19:43] VITALS: BP 172/93
[2018-11-28] MEDS ORDERED: amLODIPine 5 MG TAB PO ONE (19:45)
[2018-11-28] MEDS ORDERED: METOPROLOL TART 50 MG TAB PO ONE (19:45)
[2018-11-28 19:52] LABS: CPK CREATINE PHOSPHOKINASE 106 U/L (39-308); MB/CK RELATIVE INDEX 1.89 (< OR =4); TROPONIN I < 0.02 NG/ML (< 0.10)
--- NOTE | 2018-11-28 20:19 | REPVR ---
EXAM: CT Angiography Chest With Contrast EXAM DATE/TIME: 11/28/2018 7:21 PM CLINICAL HISTORY: 58 years old, male; Right-sided chest pain; Additional info: Right sided cp TECHNIQUE: Imaging protocol: Axial computed tomographic angiography images of the chest with intravenous contrast using CT angiography protocol. Coronal and sagittal reformatted images were created and reviewed. 3D rendering: MIP reconstructed images were created and reviewed. Radiation optimization: All CT scans at this facility use at least one of these dose optimization techniques: automated exposure control; mA and/or kV adjustment per patient size (includes targeted exams where dose is matched to clinical indication); or iterative reconstruction. Contrast material: ISOVUE 370; Contrast volume: 75 ml; Contrast route: IV; COMPARISON: CT ANGIO CHEST 10/09/2018 11:57 AM FINDINGS: Pulmonary arteries: There is opacification of the pulmonary arteries with no evidence of pulmonary embolus. Aorta: There is opacification of the aorta and the aorta appears intact. There is atherosclerotic plaque formation along the margin of the aorta. Other arteries: There is stenosis of the origin of the celiac artery and SMA. Thyroid: Normal thyroid. Lungs: There is a 4 CM wedge-shaped area of density at the right lung base consistent with atelectasis and pneumonia. There is also a 3 CM oval area of density anterior right lung base at the cardiophrenic angle consistent with atelectasis and pneumonia. Smaller areas of atelectasis and pneumonia noted at the left lung base. These areas have developed since 10/09/2018 exam. Pleural space: No evidence of pneumothorax. No evidence of pleural effusion. Heart: Normal. No cardiomegaly. No pericardial effusion. Lymph nodes: There are several small lymph nodes in the mediastinum. There are moderate-sized lymph nodes at the right hilar region and these lymph nodes have increased in size since September. Bones/joints: No evidence of significant bony abnormality. Soft tissues: Unremarkable. IMPRESSION: 1. Wedge-shaped areas of atelectasis and pneumonia have developed in both lower lung morocho. Also some enlargement of lymph nodes at the right hilar region. Followup studies would be important to see that this resolves. 2. No evidence of pulmonary embolus. Electronically signed by: Lopez Ramírez On 11/28/2018 20:19:06 PM
[2018-11-28] MEDS ORDERED: NORCO, ANEXSIA 5/325MG TABLET (HYDROcodone/ACETAMINOPHEN) PO ONE (20:45)
[2018-11-28] MEDS ORDERED: LevoFLOXacin 750 MG TABLET PO ONE (20:45)
[2018-11-28] MEDS ORDERED: LevoFLOXacin IV 750 MG in APPROPRIATE DILUENT 1 EA IV ONE (21:00)
[2018-11-28] MEDS ORDERED: GABA600T4 PO (21:01)
[2018-11-28] MEDS ORDERED: ASPI325T45 PO (21:01)
[2018-11-28] MEDS ORDERED: VENTAER INH (21:01)
[2018-11-28 22:31] VITALS: BP 154/76
[2018-11-28] MEDS ORDERED: LEVA750T7 PO (22:35)
--- NOTE | 2018-11-29 00:10 | ECGEPIP ---
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
--- NOTE | 2018-11-29 00:15 | ECGEPIP ---
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
--- NOTE | 2018-11-29 05:48 | CR ---
DATE OF CONSULTATION: 11/29/2018 CHIEF COMPLAINT: Cough and chest pain. HISTORY OF PRESENT ILLNESS (HPI): This is a 58-year-old gentleman with a prior history of coronary artery disease and myocardial infarction (NC) two years ago with five stents, hypertension, hyperlipidemia, heavy smoker who was poorly compliant with his home medications secondary to not being able to afford them who presents with the chief complaint of chest pain for one day and a dry cough for one week. The patient reports his symptoms started about a week ago when he started having a persistent dry cough. He denies any sick contacts or any fevers. Starting today he felt like the right side of his chest hurt, especially when he took a breath. At this time he is currently reporting pain only when he breathes. He reports the pain is about a 3/10. He does not feel short of breath. REVIEW OF SYSTEMS: Negative in systems except as noted above. PAST MEDICAL HISTORY: As above in the HPI. PAST SURGICAL HISTORY: 1. Back surgery. 2. Cysts removed from his testicles. 3. Kidney stone surgery. MEDICATIONS: The patient's home medications are: - albuterol every 4 hours as needed for shortness of breath - amlodipine 5 mg twice a day - gabapentin 600 mg twice a day - metoprolol 12.5 mg at bedtime - aspirin 325 mg daily He is supposed to take Plavix as well which he says he is not compliant with. ALLERGIES: CODEINE. SOCIAL HISTORY: The patient smokes a pack a day for the last 35 years. FAMILY HISTORY: The patient does have a history of coronary artery disease on the mother's side. PHYSICAL EXAMINATION: Exam in the emergency room (ED): VITAL SIGNS: Blood pressure was as high as 209/84 on admission, pulse was 75, he was satting 95% on room air. GENERAL: He is in no acute distress and breathing comfortably. HEENT: Oropharynx clear. NECK: Supple. CARDIOVASCULAR: Regular rate and rhythm, no murmurs, rubs, gallops. LUNGS: Clear to auscultation bilaterally. ABDOMEN: Soft, nontender, nondistended, positive bowel sounds. EXTREMITIES: No clubbing, cyanosis or edema. NEUROLOGY: The patient is awake, alert and oriented times three, follows simple commands. No focal neurologic deficits. SKIN: Intact. PSYCHIATRIC: Stable. LABORATORY DATA: CBC with a white count of 14.4, hemoglobin 14.6, platelets 205. Chemistries reveal creatinine 0.76, potassium 3.9, sodium 140, troponins are negative times two. IMAGING: The patient had a CTA of the chest done which shows wedged shaped areas of atelectasis and pneumonia have developed in both lower lung morocho. Also some enlargement of lymph nodes at the right hilar region. Followup studies would be important to see that this resolves. No evidence of pulmonary embolus (PE). He also had a cervical spine (C-spine) series done which shows degenerative changes. Chest x-ray showed no acute infiltrate. EKG shows sinus rhythm without any acute ST changes. ASSESSMENT AND PLAN: This is a 58-year-old gentleman with a past medical history of coronary disease and myocardial infarction, hypertension, hyperlipidemia who presents with pleuritic chest pain and found to have bilateral pneumonia, also, with hypertensive urgency. PROBLEMS: 1. Community acquired pneumonia. At this time it is not indicated for this patient to be admitted. He is less than [id number]. He is currently breathing comfortably on room air. He is not septic. He already received one dose of Levaquin in the emergency room (ER) and he should continue six more days of this. He is a smoker and continues to smoke and he did have some enlarged lymph nodes on his CT and therefore after treatment of this pneumonia he should follow with his primary care doctor to assure clinical and radiographic improvement. His primary care doctor is Dr. Aguila Tejeda and he was advised to followup with him after treatment of his pneumonia. He does have a history of poor compliance with his medications; however, he says he will pay montiel for the antibiotic and he will fill the prescription. 2. Hypertensive urgency. The patient came into the ER with blood pressures with systolics up to the 200s. After receiving his home dose of Norvasc and metoprolol his pressure came down to 132/69 prior to discharge. This would not be an indication to keep him here in the hospital especially given his pressure is better. Medication compliance is urged. 3. Chest pain. At this time his EKG did not show any changes and his troponin was negative times two. This does not appear to be coronary type chest pain as it is pleuritic in nature and the CT did show pneumonia. No further workup was initiated for the chest pain. DISPOSITION: I discussed with the emergency room physician, Dr. Reed that the patient can go home and does not need to be admitted. There is some concern that the patient will not be compliant with his medications. However, the patient was given resources and information for social psychologist which he can reach out if he would like assistance in affording his medications and program options. At this time I do not believe an inpatient admission is warranted for this patient and he can have a trial of outpatient therapy for his pneumonia. He should quickly followup with his primary care physician, Dr. Aguila Tejeda as soon as possible to monitor for clinical improvement. The plan was discussed with the emergency room physician, Dr. Reed who was in agreement.
--- NOTE | 2018-11-29 15:00 | ED PDOC ---
Post-Departure Follow-Up clyde hunter faxed formal report of cta chest for fu Óscar Oneill MD November 29, 2018 15:00
== END 2018-11-28 22:51 | disposition home or self-care (01) ==
LOC: M ED 17:08
DX: J18.9 Pneumonia, unspecified organism (principal); I10 Essential (primary) hypertension; Z91.14 Patient's other noncompliance with medication regimen; M50.30 Other cervical disc degeneration, unspecified cervical region; I25.2 Old myocardial infarction; I25.10 Atherosclerotic heart disease of native coronary artery without angina pectoris; E78.5 Hyperlipidemia, unspecified; Z95.5 Presence of coronary angioplasty implant and graft; Z72.0 Tobacco use; Z79.82 Long term (current) use of aspirin; Z79.899 Other long term (current) drug therapy; Z88.5 Allergy status to narcotic agent
CPT/HCPCS: 71045; 71275; 72052; 73030; 80048; 80076; 82550; 82553; 83605; 83690; 84439; 84443; 84484; 85025; 85610; 85730; 87040; 93005; 93041; 94760; 96365; 96366; 96375; 99285; J1956; J2270; J2405; Q9967

== ENCOUNTER → 2019-05-27 | Outpatient (CLI) | payer BC ==
[~2019-05-27] MED LIST changes: +ASPI325T45 PO; +LEVA750T7 PO; +METO200T28 PO; -OMEP40CA2 PO; +OMEP40CA97 PO; +PROV108A INH
[2019-05-27 11:57] LABS: HEMATOCRIT 47.4 % (42.0-52.0); HEMOGLOBIN 15.3 g/dl (13.5-17.5); MEAN CORPUSCULAR HEMOGLOBIN 29.7 pg (27.0-33.0); MEAN CORPUSCULAR HGB CONC 32.3 g/dl (32.0-36.5); PLATELET COUNT, AUTOMATED 207 10^3/uL (150-450); RED BLOOD COUNT 5.15 10^6/uL (4.30-6.10); WHITE BLOOD COUNT 8.8 10^3/uL (4.0-10.0)
[2019-05-27 12:32] LABS: HEMOGLOBIN A1c 5.3 %
[2019-05-27 12:50] LABS: ALBUMIN 3.8 GM/DL (3.2-5.2); ALT/SGPT 22 U/L (12-78); BILIRUBIN,TOTAL 0.5 MG/DL (0.2-1.0); BLOOD UREA NITROGEN 20 MG/DL (7-18); CALCIUM LEVEL 8.7 MG/DL (8.8-10.2); CARBON DIOXIDE LEVEL 31 MEQ/L (21-32); CHLORIDE LEVEL 105 MEQ/L (98-107); CHOLESTEROL LEVEL 125 MG/DL (<200); CHOLESTEROL RISK RATIO 3.906 (<5); CREATININE FOR GFR 0.92 MG/DL (0.70-1.30); GLOMERULAR FILTRATION RATE > 60.0 (>49); GLUCOSE, FASTING 88 MG/DL (70-100); HDL CHOLESTEROL 32 MG/DL (>40); LDL CHOLESTEROL 65 MG/DL (<100); NON-HDL-C 93 MG/DL; POTASSIUM SERUM 4.4 MEQ/L (3.5-5.1); PROSTATIC SPECIFIC AG MONITOR 2.15 NG/ML (< 4.00); SODIUM LEVEL 142 MEQ/L (136-145); TRIGLYCERIDES LEVEL 138 MG/DL (<150)
--- NOTE | 2019-05-27 15:03 | ECGEPIP ---
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
--- NOTE | 2019-05-27 17:00 | REP ---
Chest x-ray: Two views. History: Hypertension. COPD. Comparison study: November 28, 2018. Findings: The lungs are mildly hyperinflated. Lung morocho are clear. Pleural angles are sharp. Heart is not enlarged. There are multiple coronary artery stents visible overlying the heart however. Pulmonary vasculature is not increased. There is no evidence of pleural effusion or pulmonary edema. No significant bony abnormality is seen. Impression: Status post coronary artery stenting. Otherwise no active disease. Electronically Signed by Carlos Mendez MD 05/27/2019 04:52 P
--- NOTE | 2019-05-28 07:09 | REP ---
Lumbar spine series: Five views. History: Hypertension. COPD. Sciatica. Comparison study: February 16, 2016. Findings: Lumbar vertebral body heights are preserved. There is a degenerative grade 1 spondylolisthesis at L3-4 measuring 5 mm unchanged from the comparison study. This is due to degenerative disc disease and osteoarthritic facet disease. There is no evidence of spondylolysis. There is mild narrowing of the L4-5 disc. Sacrum and SI joints are intact. Psoas margins are symmetric. Impression: Degenerative disc disease at L3-4 with degenerative grade 1 L3-4 spondylolisthesis. Mild levoconvex curvature. Minimal disc narrowing L4-5. No acute abnormality. Electronically Signed by Carlos Mendez MD 05/28/2019 08:28 A
[2019-05-29 10:38] LABS: TESTOSTERONE 405 NG/DL (241-827)
== END ==
LOC: M LAB 11:19
PROVIDERS: ATTEND Family Medicine
DX: M43.16 Spondylolisthesis, lumbar region (principal); M51.36 Other intervertebral disc degeneration, lumbar region; M48.061 Spinal stenosis, lumbar region without neurogenic claudication; M54.30 Sciatica, unspecified side; I10 Essential (primary) hypertension; J44.9 Chronic obstructive pulmonary disease, unspecified; R94.31 Abnormal electrocardiogram [ECG] [EKG]

== ENCOUNTER 2020-02-08 17:00 | Emergency (ER) | payer BC ==
[~2020-02-08 17:00] MED LIST changes: +AMLO1TAB24 PO; -AMLO5TAB6 PO; +GI COCKTAIL 50ML BTL(HYOSCYAMINE/MAALOX/LIDOCAINE VISCOUS)(1:3:1) As Ordered ONE; +GI COCKTAIL 50ML BTL(HYOSCYAMINE/MAALOX/LIDOCAINE VISCOUS)(1:3:1) ONE; +ONDANSETRON 4MG/2ML VIAL As Ordered ONE; +ONDANSETRON 4MG/2ML VIAL ONE
[2020-02-08] MEDS ORDERED: ONDANSETRON 4 MG ORAL DISINTEGRATING TAB ONE (19:45)
[2020-02-08] MEDS ORDERED: ONDANSETRON 4 MG ORAL DISINTEGRATING TAB As Ordered ONE (19:45)
[2020-02-28] MEDS ORDERED: CLOP75TA2 PO (15:30)
[2020-02-28] MEDS ORDERED: LISI2.5T2 PO (15:30)
[2020-02-28] MEDS ORDERED: ATOR1TAB19 PO (15:30)
[2020-03-17 11:47] LABS: INR 1.06; PARTIAL THROMBOPLASTIN TIME 30.9 SECONDS (25.0-38.4)
[2020-03-17 14:19] LABS: BASO % 0.4 % (0.0-1.0); EOS # 0.2 10^3/uL (0.0-0.5); EOS % 2.4 % (0.0-3.0); HEMATOCRIT 42.3 % (42.0-52.0); HEMOGLOBIN 14.3 g/dl (13.5-17.5); LYMPH # 1.7 10^3/uL (1.5-5.0); LYMPH % 24.3 % (24.0-44.0); MEAN CORPUSCULAR HEMOGLOBIN 30.2 pg (27.0-33.0); MEAN CORPUSCULAR HGB CONC 33.8 g/dl (32.0-36.5); MEAN CORPUSCULAR VOLUME 89.2 fl (80.0-96.0); MONO # 0.4 10^3/uL (0.0-0.8); MONO % 5.5 % (0.0-5.0); NEUTROPHILS # 4.8 10^3/uL (1.5-8.5); NEUTROPHILS % 67.1 % (36.0-66.0); PLATELET COUNT, AUTOMATED 154 10^3/uL (150-450); RED BLOOD COUNT 4.74 10^6/uL (4.30-6.10); WHITE BLOOD COUNT 7.2 10^3/uL (4.0-10.0)
--- NOTE | 2020-03-28 12:18 | ECGEPIP ---
SINUS BRADYCARDIA BORDERLINE ECG NONSPECIFIC ST & T-WAVE ABNORMALITY NO OLD AVAILABLE SEE SCANNED DOWNTIME REPORT MTDD
[2020-05-03 11:56] LABS: ALBUMIN 3.6 GM/DL (3.2-5.2); ALT/SGPT 24 U/L (12-78); BILIRUBIN,DIRECT 0.1 MG/DL (0.0-0.2); BILIRUBIN,TOTAL 0.5 MG/DL (0.2-1.0); BLOOD UREA NITROGEN 23 MG/DL (7-18); CALCIUM LEVEL 8.8 MG/DL (8.8-10.2); CARBON DIOXIDE LEVEL 31 MEQ/L (21-32); CHLORIDE LEVEL 110 MEQ/L (98-107); CPK CREATINE PHOSPHOKINASE 111 U/L (39-308); CREATININE FOR GFR 0.94 MG/DL (0.70-1.30); GLOMERULAR FILTRATION RATE > 60.0 (>49); GLUCOSE, FASTING 84 MG/DL (70-100); LIPASE 721 U/L (73-393); POTASSIUM SERUM 4.6 MEQ/L (3.5-5.1); SODIUM LEVEL 144 MEQ/L (136-145); TOTAL PROTEIN 6.5 GM/DL (6.4-8.2); TROPONIN I < 0.02 NG/ML (< 0.10)
== END 2020-02-08 20:00 | disposition home or self-care (01) ==
LOC: M ED 17:00
DX: R11.2 Nausea with vomiting, unspecified (principal); R19.7 Diarrhea, unspecified; E86.0 Dehydration; F17.200 Nicotine dependence, unspecified, uncomplicated; I10 Essential (primary) hypertension; E78.49 Other hyperlipidemia; J44.9 Chronic obstructive pulmonary disease, unspecified; Z88.8 Allergy status to other drugs, medicaments and biological substances; Z79.01 Long term (current) use of anticoagulants; Z79.899 Other long term (current) drug therapy
CPT/HCPCS: 71046; 80048; 80076; 82550; 82553; 83690; 84443; 84484; 85025; 85610; 85730; 93005; 96374; 99284; J2405; Q0162

== ENCOUNTER → 2020-02-15 | Outpatient (CLI) | payer BC ==
[~2020-02-15] MED LIST changes: +ATOR1TAB19 PO; +CYCL5TAB PO; -GI COCKTAIL 50ML BTL(HYOSCYAMINE/MAALOX/LIDOCAINE VISCOUS)(1:3:1) As Ordered ONE; -GI COCKTAIL 50ML BTL(HYOSCYAMINE/MAALOX/LIDOCAINE VISCOUS)(1:3:1) ONE; +LISI2.5T2 PO; -ONDANSETRON 4MG/2ML VIAL As Ordered ONE; -ONDANSETRON 4MG/2ML VIAL ONE
[2020-03-22 13:28] LABS: APPEARANCE, URINE CLEAR (CLEAR); BACTERIA, URINE AUTO NEGATIVE (NEGATIVE); BILIRUBIN, URINE AUTO NEGATIVE (NEGATIVE); BLOOD, URINE BLOOD NEGATIVE (NEGATIVE); COLOR, URINE YELLOW (YELLOW); GLUCOSE, URINE (UA) AUTO NEGATIVE (NEGATIVE); KETONE, URINE AUTO NEGATIVE (NEGATIVE); LEUKOCYTE ESTERASE, URINE AUTO NEGATIVE (NEGATIVE); MUCUS, URINE SMALL (NEGATIVE); NITRITE, URINE AUTO NEGATIVE (NEGATIVE); PROTEIN, URINE AUTO NEGATIVE (NEGATIVE); RBC, URINE AUTO 0 /HPF (0-3); SPECIFIC GRAVITY URINE AUTO 1.015 (1.002-1.035); SQUAMOUS EPITHELIAL CELL UR AU 0 /HPF (0-6); WBC, URINE AUTO 1 /HPF (0-3)
[2020-03-22 16:09] LABS: BASO % 0.4 % (0.0-1.0); EOS # 0.2 10^3/uL (0.0-0.5); EOS % 2.1 % (0.0-3.0); HEMATOCRIT 44.7 % (42.0-52.0); LYMPH # 1.6 10^3/uL (1.5-5.0); LYMPH % 21.6 % (24.0-44.0); MEAN CORPUSCULAR HEMOGLOBIN 30.7 pg (27.0-33.0); MEAN CORPUSCULAR HGB CONC 33.6 g/dl (32.0-36.5); MEAN CORPUSCULAR VOLUME 91.6 fl (80.0-96.0); MONO # 0.4 10^3/uL (0.0-0.8); MONO % 4.6 % (0.0-5.0); NEUTROPHILS # 5.3 10^3/uL (1.5-8.5); PLATELET COUNT, AUTOMATED 174 10^3/uL (150-450); RED BLOOD COUNT 4.88 10^6/uL (4.30-6.10); WHITE BLOOD COUNT 7.5 10^3/uL (4.0-10.0)
[2020-04-13 16:27] LABS: ALBUMIN 3.8 GM/DL (3.2-5.2); ALT/SGPT 28 U/L (12-78); AMYLASE 55 U/L (25-115); BILIRUBIN,TOTAL 0.3 MG/DL (0.2-1.0); BLOOD UREA NITROGEN 16 MG/DL (7-18); CALCIUM LEVEL 9.1 MG/DL (8.8-10.2); CARBON DIOXIDE LEVEL 33 MEQ/L (21-32); CHLORIDE LEVEL 110 MEQ/L (98-107); CREATININE FOR GFR 0.88 MG/DL (0.70-1.30); GLOMERULAR FILTRATION RATE > 60.0 (>49); GLUCOSE, FASTING 69 MG/DL (70-100); LIPASE 110 U/L (73-393); POTASSIUM SERUM 4.4 MEQ/L (3.5-5.1); SODIUM LEVEL 145 MEQ/L (136-145); TOTAL PROTEIN 6.5 GM/DL (6.4-8.2)
== END ==
LOC: M LAB 12:24
PROVIDERS: ATTEND Family Medicine Addiction Medicine
DX: R10.30 Lower abdominal pain, unspecified (principal); K62.5 Hemorrhage of anus and rectum

== ENCOUNTER 2020-02-29 08:22 | Day surgery (SDC) | payer BC ==
[~2020-02-29] VITALS: Ht 160 cm; Wt 57.2 kg
[~2020-02-29 08:22] MED LIST changes: -CYCL5TAB PO
[2020-02-29] MEDS ORDERED: ALBUTEROL SULFATE 2.5 MG/0.5 ML INH NEB SOLN As Ordered ONE (08:50)
[2020-02-29] MEDS ORDERED: ONDANSETRON 4MG/2ML VIAL As Ordered ONE (08:51)
[2020-02-29] MEDS ORDERED: NS 1,000 ML IV ONE (09:00)
[2020-02-29] MEDS ORDERED: ONDANSETRON 4MG/2ML VIAL IV ONE (09:00)
[2020-02-29] MEDS ORDERED: ALBUTEROL SULFATE 2.5 MG/0.5 ML INH NEB SOLN INH ONE (09:00)
[2020-02-29] MEDS ORDERED: propofoL 200 MG/20 ML VIAL As Ordered ONE ×2 (09:25→09:45)
[2020-02-29 10:15] VITALS: BP 127/58
--- NOTE | 2020-03-20 11:29 | ROOR ---
Patient Name: Gibran Esquivel Procedure Date: 02/29/2020 8:47 AM Date of : 1960 Age: 59 Room: [facility] Gender: Male Note Status: Finalized Procedure: Colonoscopy Indications: Rectal bleeding Providers: Patrick Caballero Jr, MD Referring MD: Wong BRAXTON MD Requesting Provider: Medicines: Propofol per Anesthesia Complications: No immediate complications. Procedure: Pre-Anesthesia Assessment: - Prior to the procedure, a History and Physical was performed, and patient medications and allergies were reviewed. The patient is competent. The risks and benefits of the procedure and the sedation options and risks were discussed with the patient. All questions were answered and informed consent was obtained. Patient identification and proposed procedure were verified by the physician and the nurse in the pre-procedure area and in the procedure room. Mental Status Examination: alert and oriented. Airway Examination: normal oropharyngeal airway and neck mobility. Respiratory Examination: clear to auscultation. CV Examination: normal. ASA Grade Assessment: II - A patient with mild systemic disease. After reviewing the risks and benefits, the patient was deemed in satisfactory condition to undergo the procedure. The anesthesia plan was to use moderate sedation / analgesia (conscious sedation). Immediately prior to administration of medications, the patient was re-assessed for adequacy to receive sedatives. The heart rate, respiratory rate, oxygen saturations, blood pressure, adequacy of pulmonary ventilation, and response to care were monitored throughout the procedure. The physical status of the patient was re-assessed after the procedure. The Colonoscope was introduced through the anus and advanced to the cecum, identified by appendiceal orifice and ileocecal valve. The colonoscopy was performed without difficulty. The patient tolerated the procedure well. The quality of the bowel preparation was adequate. Findings: The rectum, sigmoid colon, descending colon, transverse colon, cecum, appendiceal orifice and ileocecal valve appeared normal. A small polyp was found in the ascending colon. The polyp was sessile. The polyp was removed with a hot snare. Resection and retrieval were complete. A medium polyp was found in the recto-sigmoid colon. The polyp was semi-pedunculated. The polyp was removed with a hot snare. Resection and retrieval were complete. Impression: - The rectum, sigmoid colon, descending colon, transverse colon, cecum, appendiceal orifice and ileocecal valve are normal. - One small polyp in the ascending colon, removed with a hot snare. Resected and retrieved. - One medium polyp at the recto-sigmoid colon, removed with a hot snare. Resected and retrieved. Recommendation: - Repeat colonoscopy in 3 - 5 years for surveillance based on pathology results. Patrick Caballero MD Patrick Caballero Jr, MD 02/29/2020 9:48:56 AM Number of Addenda: 0 Note Initiated On: 02/29/2020 8:47 AM Estimated Blood Loss: Estimated blood loss: none.
== END 2020-02-29 10:19 | disposition home or self-care (01) ==
LOC: M OPP 08:22
PROVIDERS: ATTEND Surgery
DX: D12.6 Benign neoplasm of colon, unspecified (principal); K62.5 Hemorrhage of anus and rectum; F17.210 Nicotine dependence, cigarettes, uncomplicated; Z79.82 Long term (current) use of aspirin; Z79.899 Other long term (current) drug therapy; Z88.5 Allergy status to narcotic agent; Z95.5 Presence of coronary angioplasty implant and graft

== ENCOUNTER 2020-05-21 12:30 | Emergency (ER) | payer BC ==
[~2020-05-21] VITALS: Ht 160 cm; Wt 59.0 kg
[2020-05-21] MEDS ORDERED: ACETAMINOPHEN 325 MG TAB PO ONE (13:30)
[2020-05-21] MEDS ORDERED: methocarbamoL 500 MG TAB PO ONE (13:30)
[2020-05-21 14:20] LABS: APPEARANCE, URINE CLEAR (CLEAR); BACTERIA, URINE AUTO NEGATIVE (NEGATIVE); BILIRUBIN, URINE AUTO NEGATIVE (NEGATIVE); BLOOD, URINE BLOOD NEGATIVE (NEGATIVE); COLOR, URINE YELLOW (YELLOW); GLUCOSE, URINE (UA) AUTO NEGATIVE (NEGATIVE); KETONE, URINE AUTO NEGATIVE (NEGATIVE); LEUKOCYTE ESTERASE, URINE AUTO NEGATIVE (NEGATIVE); MUCUS, URINE SMALL (NEGATIVE); NITRITE, URINE AUTO NEGATIVE (NEGATIVE); PROTEIN, URINE AUTO NEGATIVE (NEGATIVE); RBC, URINE AUTO 0 /HPF (0-3); SQUAMOUS EPITHELIAL CELL UR AU 0 /HPF (0-6); UROBILINOGEN, URINE AUTO 0.2 mg/dL (0.0-2.0); WBC, URINE AUTO 1 /HPF (0-3)
[2020-05-21 14:21] LABS: BASO % 0.4 % (0.0-1.0); EOS # 0.1 10^3/uL (0.0-0.5); HEMATOCRIT 44.4 % (42.0-52.0); HEMOGLOBIN 14.5 g/dl (13.5-17.5); LYMPH % 21.3 % (24.0-44.0); MEAN CORPUSCULAR HEMOGLOBIN 29.1 pg (27.0-33.0); MEAN CORPUSCULAR HGB CONC 32.7 g/dl (32.0-36.5); MONO # 0.4 10^3/uL (0.0-0.8); MONO % 4.5 % (0.0-5.0); NEUTROPHILS # 6.7 10^3/uL (1.5-8.5); NEUTROPHILS % 72.5 % (36.0-66.0); PLATELET COUNT, AUTOMATED 166 10^3/uL (150-450); RED BLOOD COUNT 4.99 10^6/uL (4.30-6.10); WHITE BLOOD COUNT 9.3 10^3/uL (4.0-10.0)
--- NOTE | 2020-05-21 14:27 | REP ---
INDICATION: DYSPNEA/COUGH. COMPARISON: February 08, 2020.. TECHNIQUE: Sitting AP portable exam. FINDINGS: Monitoring electrodes are seen. The lungs are somewhat hyperinflated but clear. No infiltrate is seen. Pleural angles are sharp. Heart is not enlarged. There are coronary artery stents visible overlying the heart however. Pulmonary vasculature is not increased. No significant bony abnormality is seen. IMPRESSION: Status post coronary artery stenting. Otherwise no active disease. <Electronically signed by Quoc Mendez > 05/21/20 [id number]
[2020-05-21 14:50] LABS: INFLUENZA A AMPLIFICATION NEGATIVE (NEGATIVE); INFLUENZA B AMPLIFICATION NEGATIVE (NEGATIVE)
[2020-05-21 14:55] LABS: BLOOD UREA NITROGEN 15 MG/DL (7-18); CALCIUM LEVEL 9.3 MG/DL (8.8-10.2); CARBON DIOXIDE LEVEL 28 MEQ/L (21-32); CHLORIDE LEVEL 110 MEQ/L (98-107); CK-MB VALUE MASS 1.9 NG/ML (<3.6); CPK CREATINE PHOSPHOKINASE 101 U/L (39-308); CREATININE FOR GFR 0.81 MG/DL (0.70-1.30); GLOMERULAR FILTRATION RATE > 60.0 (>49); GLUCOSE, FASTING 79 MG/DL (70-100); MB/CK RELATIVE INDEX 1.88 (< OR =4); POTASSIUM SERUM 3.9 MEQ/L (3.5-5.1); SODIUM LEVEL 143 MEQ/L (136-145); THYROID STIMULATING HORMONE 0.981 uIU/ML (0.358-3.740); TROPONIN I < 0.02 NG/ML (< 0.10)
[2020-05-21] MEDS ORDERED: CYCL5TAB PO (15:33)
[2020-05-21 16:01] VITALS: BP 178/88
--- NOTE | 2020-05-21 16:49 | ECGEPIP ---
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
== END 2020-05-21 16:14 | disposition home or self-care (01) ==
LOC: M ED 12:30
DX: I16.0 Hypertensive urgency (principal); M79.10 Myalgia, unspecified site; R68.83 Chills (without fever); Z20.828 Contact with and (suspected) exposure to other viral communicable diseases; I10 Essential (primary) hypertension; I25.10 Atherosclerotic heart disease of native coronary artery without angina pectoris; I25.2 Old myocardial infarction; Z95.5 Presence of coronary angioplasty implant and graft; F17.200 Nicotine dependence, unspecified, uncomplicated; Z88.6 Allergy status to analgesic agent; Z79.899 Other long term (current) drug therapy
CPT/HCPCS: 36415; 71045; 80048; 81001; 82550; 82553; 83605; 84443; 84484; 85025; 87502; 93005; 93041; 94760; 99285; U0003

== ENCOUNTER 2021-02-20 18:34 | Emergency (ER) | payer BC ==
[~2021-02-20] VITALS: Ht 160 cm; Wt 54.0 kg
[~2021-02-20 18:34] MED LIST changes: +CYCL5TAB PO; -DOXY100C37 PO; +DOXY1CAP62 PO; +GABA-282 PO; +GABA-283 PO; -GABA-843 PO; -GABA-845 PO; -LISI-538 PO; -LISI2.5T2 PO; +LISI2.5T9 PO; +LISI20TA33 PO; +OMEP40CA4 PO; -OMEP40CA97 PO
[2021-02-20] MEDS ORDERED: GABAPENTIN 300 MG CAP PO ONE (22:15)
[2021-02-20 22:25] VITALS: BP 171/76
== END 2021-02-20 22:26 | disposition left against medical advice (07) ==
LOC: M ED 18:34
DX: Z53.21 Procedure and treatment not carried out due to patient leaving prior to being seen by health care provider (principal)

== ENCOUNTER 2021-07-29 13:22 | Emergency (ER) | payer BC, OTHER, SELFPAY ==
[~2021-07-29] VITALS: Ht 160 cm; Wt 60.0 kg
[~2021-07-29 13:22] MED LIST changes: +DOXY-443 PO; -DOXY1CAP62 PO
[2021-07-29 13:23] VITALS: BP 133/79
[2021-07-29] MEDS ORDERED: ATOR40TA75 (14:06)
== END 2021-07-29 19:13 | disposition home or self-care (01) ==
LOC: M ED 13:22
DX: M54.32 Sciatica, left side (principal); M51.36 Other intervertebral disc degeneration, lumbar region; M43.16 Spondylolisthesis, lumbar region; I25.2 Old myocardial infarction; I10 Essential (primary) hypertension; F17.200 Nicotine dependence, unspecified, uncomplicated; F12.10 Cannabis abuse, uncomplicated

== ENCOUNTER 2021-09-07 10:18 | Emergency (ER) | payer OTHER, SELFPAY ==
[~2021-09-07] VITALS: Ht 160 cm; Wt 62.1 kg
[~2021-09-07 10:18] MED LIST changes: +ATOR40TA75
[2021-09-07] MEDS ORDERED: PLAV1TAB2 PO (11:47)
[2021-09-07 11:55] VITALS: BP 153/80
== END 2021-09-07 11:57 | disposition home or self-care (01) ==
LOC: M ED 10:18
DX: M54.50 Low back pain, unspecified (principal); M25.512 Pain in left shoulder; I51.9 Heart disease, unspecified; J44.9 Chronic obstructive pulmonary disease, unspecified; I10 Essential (primary) hypertension; F17.200 Nicotine dependence, unspecified, uncomplicated; Z88.5 Allergy status to narcotic agent; Z86.79 Personal history of other diseases of the circulatory system; Z79.811 Long term (current) use of aromatase inhibitors; Z79.899 Other long term (current) drug therapy

== ENCOUNTER 2021-10-27 06:21 | Emergency (ER) | payer OTHER ==
[~2021-10-27] VITALS: Ht 160 cm; Wt 61.9 kg
[~2021-10-27 06:21] MED LIST changes: +PLAV1TAB2 PO
[2021-10-27 06:42] VITALS: BP 159/82
[2021-10-27] MEDS ORDERED: ULTR50TA8 PO (07:13)
== END 2021-10-27 07:40 | disposition home or self-care (01) ==
LOC: M ED 06:21
DX: S46.002A Unspecified injury of muscle(s) and tendon(s) of the rotator cuff of left shoulder, initial encounter (principal); I25.2 Old myocardial infarction; I10 Essential (primary) hypertension; K21.9 Gastro-esophageal reflux disease without esophagitis; F17.200 Nicotine dependence, unspecified, uncomplicated; Z86.79 Personal history of other diseases of the circulatory system; Z79.811 Long term (current) use of aromatase inhibitors; Y92.9 Unspecified place or not applicable; Y93.9 Activity, unspecified; Y99.9 Unspecified external cause status

== ENCOUNTER 2021-12-08 19:16 | Emergency (ER) | payer OTHER ==
[~2021-12-08] VITALS: Ht 160 cm; Wt 139.0 kg
[2021-12-08 19:16] VITALS: BP 164/81
[~2021-12-08 19:16] MED LIST changes: +ULTR50TA8 PO
[2021-12-08] MEDS ORDERED: traMADol 50 MG TAB PO ONE (20:35)
[2021-12-08] MEDS ORDERED: NIRMATRELVIR/RITONAVIR CO-PACK (EMERGENCY USE AUTH) PO SCH ×2 (21:00→23:15)
[2021-12-08 21:46] LABS: BASO % 0.2 % (0.0-1.0); EOS % 0.2 % (0.0-3.0); HEMATOCRIT 41.1 % (42.0-52.0); LYMPH # 1.2 10^3/uL (1.5-5.0); LYMPH % 21.1 % (24.0-44.0); MEAN CORPUSCULAR HGB CONC 34.1 g/dl (32.0-36.5); MEAN CORPUSCULAR VOLUME 91.1 fl (80.0-96.0); MONO # 0.6 10^3/uL (0.0-0.8); MONO % 10.6 % (2.0-8.0); NEUTROPHILS # 3.8 10^3/uL (1.5-8.5); NEUTROPHILS % 67.5 % (36.0-66.0); PLATELET COUNT, AUTOMATED 129 10^3/uL (150-450); RED BLOOD COUNT 4.51 10^6/uL (4.30-6.10); WHITE BLOOD COUNT 5.6 10^3/uL (4.0-10.0)
== END 2021-12-09 00:06 | disposition home or self-care (01) ==
LOC: M ED 19:16
DX: U07.1 COVID-19 (principal); I10 Essential (primary) hypertension; I25.2 Old myocardial infarction; E78.5 Hyperlipidemia, unspecified; F17.200 Nicotine dependence, unspecified, uncomplicated; F12.10 Cannabis abuse, uncomplicated; Z88.6 Allergy status to analgesic agent; Z95.828 Presence of other vascular implants and grafts

== ENCOUNTER 2021-12-16 15:55 | Emergency (ER) | payer OTHER ==
[~2021-12-16] VITALS: Ht 160 cm; Wt 63.2 kg
[2021-12-16] MEDS ORDERED: AMLO2.5T3 (16:08)
[2021-12-16] MEDS ORDERED: GI COCKTAIL 50ML BTL(HYOSCYAMINE/MAALOX/LIDOCAINE VISCOUS)(1:3:1) PO ONE (17:00)
[2021-12-16 17:44] LABS: BASO % 0.2 % (0.0-1.0); EOS # 0.1 10^3/uL (0.0-0.5); EOS % 0.7 % (0.0-3.0); HEMATOCRIT 38.9 % (42.0-52.0); LYMPH # 1.8 10^3/uL (1.5-5.0); LYMPH % 17.2 % (24.0-44.0); MEAN CORPUSCULAR HEMOGLOBIN 29.7 pg (27.0-33.0); MEAN CORPUSCULAR HGB CONC 33.4 g/dl (32.0-36.5); MEAN CORPUSCULAR VOLUME 88.8 fl (80.0-96.0); MONO # 0.6 10^3/uL (0.0-0.8); NEUTROPHILS # 7.7 10^3/uL (1.5-8.5); NEUTROPHILS % 75.5 % (36.0-66.0); PLATELET COUNT, AUTOMATED 201 10^3/uL (150-450); RED BLOOD COUNT 4.38 10^6/uL (4.30-6.10); WHITE BLOOD COUNT 10.2 10^3/uL (4.0-10.0)
[2021-12-16 17:47] LABS: CK-MB VALUE MASS 2.5 NG/ML (<3.6); MB/CK RELATIVE INDEX 2.6 (< OR =4)
[2021-12-16 17:51] LABS: ALBUMIN 3.5 GM/DL (3.2-5.2); ALT/SGPT 19 U/L (12-78); BILIRUBIN,DIRECT < 0.1 MG/DL (0.0-0.2); BILIRUBIN,TOTAL 0.2 MG/DL (0.2-1.0); BLOOD UREA NITROGEN 20 MG/DL (7-18); CALCIUM LEVEL 9.1 MG/DL (8.8-10.2); CARBON DIOXIDE LEVEL 28 MEQ/L (21-32); CHLORIDE LEVEL 111 MEQ/L (98-107); CREATININE FOR GFR 1.07 MG/DL (0.70-1.30); GLOMERULAR FILTRATION RATE > 60.0 (>49); GLUCOSE, FASTING 112 MG/DL (70-100); LIPASE 899 U/L (73-393); NT-PRO BNP 82 PG/ML (<125); SODIUM LEVEL 143 MEQ/L (136-145); THYROID STIMULATING HORMONE 0.564 uIU/ML (0.358-3.740); TOTAL PROTEIN 6.1 GM/DL (6.4-8.2)
[2021-12-16 17:56] LABS: INR 0.98; PROTHROMBIN TIME 13.4 SECONDS (12.7-14.5)
[2021-12-16 17:57] LABS: PARTIAL THROMBOPLASTIN TIME 29.2 SECONDS (25.9-37.0)
[2021-12-16 18:40] LABS: CK-MB VALUE MASS 2.8 NG/ML (<3.6); MB/CK RELATIVE INDEX 3.18 (< OR =4)
[2021-12-16] MEDS ORDERED: ISOVUE-370 76% 100ML VIAL As Ordered ONE (18:55)
[2021-12-16 20:00] VITALS: BP 133/68
[2021-12-16] MEDS ORDERED: ACETAMINOPHEN TAB 650MG DOSE (2X325MG) PO ONE (21:00)
[2021-12-16] MEDS ORDERED: OMEP40CA4 PO (21:16)
[2021-12-16] MEDS ORDERED: OMEPRAZOLE 20MG CAP PO ONE (21:50)
== END 2021-12-16 21:58 | disposition home or self-care (01) ==
LOC: M ED 15:55
DX: K30 Functional dyspepsia (principal); I70.0 Atherosclerosis of aorta; Z86.16 Personal history of COVID-19; I77.4 Celiac artery compression syndrome; I70.1 Atherosclerosis of renal artery; N40.0 Benign prostatic hyperplasia without lower urinary tract symptoms; R91.8 Other nonspecific abnormal finding of lung field; K57.30 Diverticulosis of large intestine without perforation or abscess without bleeding; M43.16 Spondylolisthesis, lumbar region; M48.061 Spinal stenosis, lumbar region without neurogenic claudication; I45.10 Unspecified right bundle-branch block; E78.5 Hyperlipidemia, unspecified; I10 Essential (primary) hypertension; J44.9 Chronic obstructive pulmonary disease, unspecified; K21.9 Gastro-esophageal reflux disease without esophagitis; M54.9 Dorsalgia, unspecified; Z88.6 Allergy status to analgesic agent; Z79.899 Other long term (current) drug therapy; F17.200 Nicotine dependence, unspecified, uncomplicated
CPT/HCPCS: 36415; 71045; 71275; 74177; 80048; 80076; 82550; 82553; 83605; 83690; 83880; 84443; 85025; 85610; 85730; 87040; 87426; 93005; 93041; 94760; 99285; Q9967

== ENCOUNTER 2022-03-09 16:56 | Emergency (ER) | payer MEDICAID, OTHER, SELFPAY ==
[~2022-03-09] VITALS: Ht 160 cm; Wt 61.4 kg
[~2022-03-09 16:56] MED LIST changes: +AMLO2.5T3
[2022-03-09] MEDS ORDERED: OLANZapine INTRAMUSCULAR 10MG VIAL IM ONE (17:45)
[2022-03-09 17:58] LABS: HEMATOCRIT 44.4 % (42.0-52.0); MEAN CORPUSCULAR HEMOGLOBIN 30.7 pg (27.0-33.0); MEAN CORPUSCULAR HGB CONC 33.8 g/dl (32.0-36.5); MEAN CORPUSCULAR VOLUME 90.8 fl (80.0-96.0); PLATELET COUNT, AUTOMATED 246 10^3/uL (150-450); RED BLOOD COUNT 4.89 10^6/uL (4.30-6.10); WHITE BLOOD COUNT 16.7 10^3/uL (4.0-10.0)
[2022-03-09 18:35] LABS: RSV AMPLIFICATION NEGATIVE (NEGATIVE)
[2022-03-09 19:06] LABS: ACETAMINOPHEN LEVEL < 2.0 UG/ML (10.0-30.0); ALBUMIN 4.6 GM/DL (3.2-5.2); ALT/SGPT 43 U/L (12-78); BILIRUBIN,DIRECT 0.3 MG/DL (0.0-0.2); BILIRUBIN,TOTAL 0.5 MG/DL (0.2-1.0); BLOOD UREA NITROGEN 32 MG/DL (7-18); CALCIUM LEVEL 10.3 MG/DL (8.8-10.2); CARBON DIOXIDE LEVEL 23 MEQ/L (21-32); CHLORIDE LEVEL 113 MEQ/L (98-107); CREATININE FOR GFR 1.98 MG/DL (0.70-1.30); ETHYL ALCOHOL (ETHANOL) < 0.003 % (0.000-0.010); GLOMERULAR FILTRATION RATE 36.5 (>49); GLUCOSE, FASTING 117 MG/DL (70-100); SALICYLATE LEVEL 3.9 MG/DL (5.0-30.0); SODIUM LEVEL 143 MEQ/L (136-145); THYROID STIMULATING HORMONE 0.552 uIU/ML (0.358-3.740); TOTAL PROTEIN 7.4 GM/DL (6.4-8.2)
[2022-03-09] MEDS ORDERED: NS 1,000 ML IV ONE (21:20)
[2022-03-10 04:28] VITALS: BP 135/82
== END 2022-03-10 05:12 | disposition home or self-care (01) ==
LOC: M ED 16:56
DX: F43.0 Acute stress reaction (principal); F19.10 Other psychoactive substance abuse, uncomplicated; R45.851 Suicidal ideations; R45.850 Homicidal ideations; J45.909 Unspecified asthma, uncomplicated; F17.200 Nicotine dependence, unspecified, uncomplicated; I10 Essential (primary) hypertension; Z88.5 Allergy status to narcotic agent; Z79.899 Other long term (current) drug therapy; Z79.811 Long term (current) use of aromatase inhibitors

== ENCOUNTER → 2022-03-30 | Outpatient (CLI) | payer MEDICAID, OTHER, SELFPAY ==
[~2022-03-30] MED LIST changes: +ALBU6.7H6 INH; -PROV108A INH
== END ==
LOC: M CARPUL 09:01
PROVIDERS: ATTEND Physician Assistant
DX: J42 Unspecified chronic bronchitis (principal)

== ENCOUNTER 2022-11-23 05:37 | Inpatient (IN) | payer OTHER ==
[~2022-11-23] VITALS: Ht 160 cm; Wt 53.8 kg
[~2022-11-23 05:37] MED LIST changes: -AMLO2.5T3; +AMLO2.5T3 PO; +CLOP75TA99 PO; -PLAV1TAB2 PO
[2022-11-23 07:21] LABS: ETHYL ALCOHOL (ETHANOL) < 0.003 % (0.000-0.010)
[2022-11-23 07:22] LABS: ACETAMINOPHEN LEVEL < 2.0 UG/ML (10.0-20.0); SALICYLATE LEVEL < 3.0 MG/DL (<30)
[2022-11-23 07:23] LABS: ALBUMIN 4.3 G/DL (3.2-5.2); ALKALINE PHOSPHATASE 114 U/L (46-116); ALT/SGPT 15 U/L (7.0-40); AST/SGOT 21 U/L (<34); BILIRUBIN,DIRECT 0.2 MG/DL (<0.4); BILIRUBIN,TOTAL 0.4 MG/DL (0.3-1.2); BLOOD UREA NITROGEN 19 MG/DL (9-23); CALCIUM LEVEL 9.4 MG/DL (8.3-10.6); CARBON DIOXIDE LEVEL 27 MMOL/L (20-31); CHLORIDE LEVEL 105 MMOL/L (98-107); CREATININE FOR GFR 1.09 MG/DL (0.70-1.30); GLOMERULAR FILTRATION RATE > 60.0 (>49); GLUCOSE, FASTING 105 MG/DL (74-106); POTASSIUM SERUM 4.1 MMOL/L (3.5-5.1); SODIUM LEVEL 139 MMOL/L (136-145); TOTAL PROTEIN 6.7 G/DL (5.7-8.2)
[2022-11-23 07:26] LABS: THYROID STIMULATING HORMONE 1.025 uIU/ML (0.55-4.78)
[2022-11-23] MEDS ORDERED: LORazepam 2 MG TAB PO ONE (08:05)
[2022-11-23 08:36] LABS: HEMATOCRIT 46.8 % (42.0-52.0); HEMOGLOBIN 15.4 g/dl (13.5-17.5); MEAN CORPUSCULAR HEMOGLOBIN 28.8 pg (27.0-33.0); MEAN CORPUSCULAR HGB CONC 32.9 g/dl (32.0-36.5); MEAN CORPUSCULAR VOLUME 87.5 fl (80.0-96.0); PLATELET COUNT, AUTOMATED 214 10^3/uL (150-450); RED BLOOD COUNT 5.35 10^6/uL (4.30-6.10); WHITE BLOOD COUNT 10.8 10^3/uL (4.0-10.0)
[2022-11-23] MEDS: NICOTINE 14 MG/24 HR TRANSDERMAL TD SCH (09:00)
[2022-11-23 16:14] LABS: BARBITURATES URINE NEGATIVE (NEGATIVE); BENZODIAZEPINES URINE NEGATIVE (NEGATIVE); CANNABINOIDS URINE NEGATIVE (NEGATIVE); COCAINE METABOLITE URINE NEGATIVE (NEGATIVE); METHADONE URINE NEGATIVE (NEGATIVE); OPIATES URINE NEGATIVE (NEGATIVE); PHENCYCLIDINE URINE NEGATIVE (NEGATIVE)
[2022-11-23 16:16] LABS: AMPHETAMINES LEVEL URINE POSITIVE (NEGATIVE)
[2022-11-23] MEDS ORDERED: OMEP40CA5 PO (18:21)
[2022-11-23] MEDS ORDERED: CLOP75TA99 PO (18:21)
[2022-11-23] MEDS ORDERED: ALBU8.5H INH (18:21)
[2022-11-23] MEDS ORDERED: LISI20TA33 PO (18:21)
[2022-11-23] MEDS ORDERED: ATOR80TA59 PO (18:21)
[2022-11-23] MEDS ORDERED: HOME MED LIST COMPLETE! XX SCH (18:25)
[2022-11-23] MEDS ORDERED: IBUPROFEN 400MG TAB PO PRN (18:30)
[2022-11-23] MEDS ORDERED: MOM 30ML SUSPENSION UDC PO PRN (18:30)
[2022-11-23] MEDS ORDERED: MAALOX 30 ML SUSP *UDC PO PRN (18:30)
[2022-11-23] MEDS ORDERED: traZODone 50 MG TAB PO PRN (18:30)
[2022-11-23] MEDS ORDERED: ALBUTEROL 90 MCG/ACT 8GM HFA INHALER INH PRN (18:30)
[2022-11-23] MEDS: ATORVASTATIN 20 MG TAB PO SCH (20:07)
[2022-11-23] MEDS: METOPROLOL TART 12.5 MG PER 1/2 TAB PO SCH (20:10)
[2022-11-23] MEDS: GABAPENTIN 300 MG CAP PO SCH (20:10)
[2022-11-23 22:32] VITALS: BP 121/75
[2022-11-24 06:30] VITALS: BP 125/75
[2022-11-24] MEDS: GABAPENTIN 300 MG CAP PO SCH ×3 (09:00→21:01)
[2022-11-24] MEDS: NICOTINE 14 MG/24 HR TRANSDERMAL TD SCH (09:00)
[2022-11-24] MEDS: OLANZapine 5 MG TAB PO SCH ×2 (09:00→21:00)
[2022-11-24] MEDS: OMEPRAZOLE 20MG CAP PO SCH (09:00)
[2022-11-24] MEDS: CLOPIDOGREL 75 MG TAB PO SCH (09:00)
[2022-11-24] MEDS ORDERED: diphenhydrAMINE 50MG/ML VIAL IM STA (14:50)
[2022-11-24] MEDS ORDERED: LORazepam 2 MG/ML 1ML VIAL IM STA (14:50)
[2022-11-24] MEDS ORDERED: HALOPERIDOL 5MG/ML 1ML VIAL IM STA (14:50)
[2022-11-24] MEDS: METOPROLOL TART 12.5 MG PER 1/2 TAB PO SCH (21:00)
[2022-11-24] MEDS: ATORVASTATIN 20 MG TAB PO SCH (21:02)
[2022-11-24 21:15] VITALS: BP 96/62
[2022-11-25 06:23] VITALS: BP 140/73
[2022-11-25 08:58] VITALS: BP 125/63
[2022-11-25] MEDS: OLANZapine 5 MG TAB PO SCH ×2 (08:59→21:47)
[2022-11-25] MEDS: CLOPIDOGREL 75 MG TAB PO SCH (08:59)
[2022-11-25] MEDS: GABAPENTIN 300 MG CAP PO SCH ×3 (08:59→21:48)
[2022-11-25] MEDS: NICOTINE 14 MG/24 HR TRANSDERMAL TD SCH (09:00)
[2022-11-25] MEDS: OMEPRAZOLE 20MG CAP PO SCH (09:00)
[2022-11-25 17:19] VITALS: BP 117/74
[2022-11-25] MEDS: METOPROLOL TART 12.5 MG PER 1/2 TAB PO SCH (21:47)
[2022-11-25] MEDS: ATORVASTATIN 20 MG TAB PO SCH (21:48)
[2022-11-26 06:35] VITALS: BP 140/56
[2022-11-26] MEDS: NICOTINE 14 MG/24 HR TRANSDERMAL TD SCH (08:03)
[2022-11-26] MEDS: OMEPRAZOLE 20MG CAP PO SCH (08:03)
[2022-11-26] MEDS: OLANZapine 5 MG TAB PO SCH ×2 (08:03→21:00)
[2022-11-26] MEDS: CLOPIDOGREL 75 MG TAB PO SCH (08:03)
[2022-11-26] MEDS: GABAPENTIN 300 MG CAP PO SCH ×3 (08:03→21:00)
[2022-11-26] MEDS ORDERED: OLAN1TAB20 PO (10:01)
[2022-11-26] MEDS ORDERED: NICO14PA TD (10:01)
[2022-11-26 17:41] VITALS: BP 131/85
[2022-11-26] MEDS: METOPROLOL TART 12.5 MG PER 1/2 TAB PO SCH (21:00)
[2022-11-26] MEDS: ATORVASTATIN 20 MG TAB PO SCH (21:00)
[2022-11-27] MEDS: NICOTINE 14 MG/24 HR TRANSDERMAL TD SCH (09:00)
[2022-11-27 09:32] VITALS: BP 150/90
[2022-11-27] MEDS: OLANZapine 5 MG TAB PO SCH (09:35)
[2022-11-27 09:36] VITALS: BP 150/90
[2022-11-27] MEDS: OMEPRAZOLE 20MG CAP PO SCH (09:36)
[2022-11-27] MEDS: CLOPIDOGREL 75 MG TAB PO SCH (09:37)
[2022-11-27] MEDS: GABAPENTIN 300 MG CAP PO SCH (09:37)
== END 2022-11-27 11:22 | disposition home or self-care (01) | DRG 751 ==
LOC: M ED 05:37 → M ED INP 18:28 → M PSY 21:22
PROVIDERS: ADMIT Student in an Organized Health Care Education/Training Program; ATTEND Student in an Organized Health Care Education/Training Program
DX: F29 Unspecified psychosis not due to a substance or known physiological condition (principal); F17.200 Nicotine dependence, unspecified, uncomplicated; F15.90 Other stimulant use, unspecified, uncomplicated; R45.851 Suicidal ideations; R45.850 Homicidal ideations; Z88.5 Allergy status to narcotic agent; Z79.899 Other long term (current) drug therapy

== ENCOUNTER → 2023-01-06 | Outpatient (REF) ==
[~2023-01-06] MED LIST changes: +ALBU8.5H INH; +ATOR80TA59 PO; +NICO14PA TD; +OLAN1TAB20 PO; +OMEP40CA5 PO
== END ==
LOC: M PLAIMG 12:31
PROVIDERS: ATTEND Internal Medicine
DX: R52 Pain, unspecified (principal)

== ENCOUNTER → 2023-01-19 | Outpatient (REF) | payer OTHER, MEDICAID ==
[2023-01-19 18:13] LABS: CHOLESTEROL RISK RATIO 3.79 (<5); HDL CHOLESTEROL 31.1 MG/DL (>40); LDL CHOLESTEROL 73.1 MG/DL (<100); NON-HDL-C 86.9 MG/DL
== END ==
LOC: M SFHCADAM 12:01
PROVIDERS: ATTEND Physician Assistant
DX: I70.0 Atherosclerosis of aorta (principal); Z12.5 Encounter for screening for malignant neoplasm of prostate

== ENCOUNTER → 2023-04-07 | Outpatient (REF) | payer OTHER, MEDICAID ==
[~2023-04-07] MED LIST changes: -GABA-283 PO; +GABA-284 PO
[2023-04-07 13:38] LABS: HEMATOCRIT 46.8 % (42.0-52.0); HEMOGLOBIN 14.9 g/dl (13.5-17.5); MEAN CORPUSCULAR HEMOGLOBIN 28.5 pg (27.0-33.0); MEAN CORPUSCULAR HGB CONC 31.8 g/dl (32.0-36.5); MEAN CORPUSCULAR VOLUME 89.7 fl (80.0-96.0); PLATELET COUNT, AUTOMATED 178 10^3/uL (150-450); RED BLOOD COUNT 5.22 10^6/uL (4.30-6.10); WHITE BLOOD COUNT 8.3 10^3/uL (4.0-10.0)
[2023-04-07 13:41] LABS: ALBUMIN 3.7 G/DL (3.2-5.2); ALKALINE PHOSPHATASE 105 U/L (46-116); ALT/SGPT 24 U/L (7.0-40); AST/SGOT 18 U/L (<34); BILIRUBIN,TOTAL 0.4 MG/DL (0.3-1.2); BLOOD UREA NITROGEN 23 MG/DL (9-23); CALCIUM LEVEL 9.1 MG/DL (8.3-10.6); CARBON DIOXIDE LEVEL 34 MMOL/L (20-31); CHLORIDE LEVEL 109 MMOL/L (98-107); CREATININE FOR GFR 0.89 MG/DL (0.70-1.30); GLOMERULAR FILTRATION RATE > 60.0 (>49); GLUCOSE, FASTING 87 MG/DL (74-106); SODIUM LEVEL 144 MMOL/L (136-145); TOTAL PROTEIN 6.2 G/DL (5.7-8.2)
== END ==
LOC: M SFHCADAM 08:26
PROVIDERS: ATTEND Physician Assistant
DX: I25.10 Atherosclerotic heart disease of native coronary artery without angina pectoris (principal)

== ENCOUNTER → 2023-04-27 | Outpatient (CLI) | payer OTHER | LOC: M RAD 15:01 | PROVIDERS: ATTEND Physician Assistant | DX: Z12.2 Encounter for screening for malignant neoplasm of respiratory organs (principal); F17.210 Nicotine dependence, cigarettes, uncomplicated ==

== ENCOUNTER → 2023-09-21 | Outpatient (REF) | payer OTHER, MEDICAID ==
[2023-09-21 13:08] LABS: HEMATOCRIT 42.9 % (42.0-52.0); HEMOGLOBIN 14.1 g/dl (13.5-17.5); MEAN CORPUSCULAR HEMOGLOBIN 29.9 pg (27.0-33.0); MEAN CORPUSCULAR HGB CONC 32.9 g/dl (32.0-36.5); MEAN CORPUSCULAR VOLUME 90.9 fl (80.0-96.0); PLATELET COUNT, AUTOMATED 249 10^3/uL (150-450); RED BLOOD COUNT 4.72 10^6/uL (4.30-6.10); WHITE BLOOD COUNT 8.6 10^3/uL (4.0-10.0)
[2023-09-21 13:33] LABS: ALKALINE PHOSPHATASE 84 U/L (46-116); ALT/SGPT 11 U/L (7.0-40); AST/SGOT 11 U/L (<34); BILIRUBIN,TOTAL 0.3 MG/DL (0.3-1.2); BLOOD UREA NITROGEN 20 MG/DL (9-23); CALCIUM LEVEL 9.2 MG/DL (8.3-10.6); CARBON DIOXIDE LEVEL 29 MMOL/L (20-31); CHLORIDE LEVEL 109 MMOL/L (98-107); CHOLESTEROL LEVEL 142 MG/DL (<200); CHOLESTEROL RISK RATIO 4.05 (<5); CREATININE FOR GFR 0.92 MG/DL (0.70-1.30); GLOMERULAR FILTRATION RATE > 60.0 (>49); GLUCOSE, FASTING 84 MG/DL (74-106); LDL CHOLESTEROL 75.4 MG/DL (<100); POTASSIUM SERUM 4.7 MMOL/L (3.5-5.1); SODIUM LEVEL 138 MMOL/L (136-145); TOTAL PROTEIN 6.8 G/DL (5.7-8.2); TRIGLYCERIDES LEVEL 158 MG/DL (<150)
[2023-09-21 13:35] LABS: FREE T4 1.34 NG/DL (0.89-1.76); THYROID STIMULATING HORMONE 0.821 uIU/ML (0.55-4.78)
[2023-09-21 14:04] LABS: HEMOGLOBIN A1c 4.9 % (4.0-6.0)
== END ==
LOC: M SFHCADAM 11:51
PROVIDERS: ATTEND Family Medicine
DX: N52.9 Male erectile dysfunction, unspecified (principal); I25.10 Atherosclerotic heart disease of native coronary artery without angina pectoris; E78.2 Mixed hyperlipidemia; Z13.1 Encounter for screening for diabetes mellitus; Z79.899 Other long term (current) drug therapy

== ENCOUNTER → 2023-09-28 | Outpatient (REF) | payer OTHER, MEDICAID ==
[2023-09-28 13:42] LABS: PROLACTIN 3.84 NG/ML (2.1-17.7)
[2023-09-29 23:16] LABS: TESTOSTERONE FREE (DIRECT) 5.7 pg/mL (6.6-18.1)
== END ==
LOC: M SFHCADAM 10:25
PROVIDERS: ATTEND Family Medicine
DX: E34.9 Endocrine disorder, unspecified (principal)

== ENCOUNTER → 2023-11-03 | Outpatient (REF) | payer OTHER, MEDICAID ==
[~2023-11-03] MED LIST changes: +DOXY-323 PO; -DOXY-443 PO; +METO200T15 PO; -METO200T28 PO
== END ==
LOC: M SFHCADAM 11:18
PROVIDERS: ATTEND Family Medicine
DX: E34.9 Endocrine disorder, unspecified (principal)

== ENCOUNTER → 2024-09-22 | Outpatient (CLI) | payer MEDICARE, MEDICAID ==
[~2024-09-22] MED LIST changes: -CYCL5TAB PO; +CYCL5TAB4 PO; -DOXY-323 PO; +DOXY-441 PO; +GABA-1172 PO; +GABA-1490 PO; -GABA-282 PO; -GABA600T4 PO; +ONDA-282 PO; -ONDA4TAB6 PO
[2024-09-22 11:46] LABS: BLOOD UREA NITROGEN 21 MG/DL (9-23); CARBON DIOXIDE LEVEL 30 MMOL/L (20-31); CHLORIDE LEVEL 106 MMOL/L (98-107); CREATININE FOR GFR 1.06 MG/DL (0.70-1.30); GLOMERULAR FILTRATION RATE > 60.0 (>49); GLUCOSE, FASTING 87 MG/DL (74-106); POTASSIUM SERUM 4.5 MMOL/L (3.5-5.1); SODIUM LEVEL 142 MMOL/L (136-145)
== END ==
LOC: M LAB 10:50
PROVIDERS: ATTEND Physician Assistant
DX: I10 Essential (primary) hypertension (principal)

== ENCOUNTER → 2024-09-22 | Outpatient (CLI) | payer MEDICARE, MEDICAID ==
[2024-09-22 11:25] LABS: BASO % 0.5 % (0.0-1.0); EOS # 0.2 10^3/uL (0.0-0.5); EOS % 2.6 % (0.0-3.0); HEMATOCRIT 41.5 % (42.0-52.0); LYMPH # 1.9 10^3/uL (1.5-5.0); LYMPH % 23.9 % (24.0-44.0); MEAN CORPUSCULAR HEMOGLOBIN 29.9 pg (27.0-33.0); MEAN CORPUSCULAR HGB CONC 33.7 g/dl (32.0-36.5); MEAN CORPUSCULAR VOLUME 88.7 fl (80.0-96.0); MONO # 0.4 10^3/uL (0.0-0.8); MONO % 5.4 % (2.0-8.0); NEUTROPHILS # 5.2 10^3/uL (1.5-8.5); NEUTROPHILS % 67.3 % (36.0-66.0); PLATELET COUNT, AUTOMATED 196 10^3/uL (150-450); RED BLOOD COUNT 4.68 10^6/uL (4.30-6.10); WHITE BLOOD COUNT 7.8 10^3/uL (4.0-10.0)
[2024-09-22 11:47] LABS: ALBUMIN 3.7 G/DL (3.2-5.2); ALKALINE PHOSPHATASE 77 U/L (40-129); ALT/SGPT 18 U/L (7.0-40); AST/SGOT 10 U/L (<34); BILIRUBIN,TOTAL 0.4 MG/DL (0.3-1.2); BLOOD UREA NITROGEN 20 MG/DL (9-23); CALCIUM LEVEL 9.3 MG/DL (8.3-10.6); CARBON DIOXIDE LEVEL 29 MMOL/L (20-31); CHLORIDE LEVEL 106 MMOL/L (98-107); CHOLESTEROL LEVEL 146 MG/DL (<200); CHOLESTEROL RISK RATIO 4.03 (<5); CREATININE FOR GFR 1.09 MG/DL (0.70-1.30); GLOMERULAR FILTRATION RATE > 60.0 (>49); GLUCOSE, FASTING 88 MG/DL (74-106); HDL CHOLESTEROL 36.2 MG/DL (>40); LDL CHOLESTEROL 83.4 MG/DL (<100); NON-HDL-C 109.8 MG/DL; POTASSIUM SERUM 4.6 MMOL/L (3.5-5.1); SODIUM LEVEL 145 MMOL/L (136-145); TOTAL PROTEIN 6.5 G/DL (5.7-8.2); TRIGLYCERIDES LEVEL 132 MG/DL (<150)
[2024-09-22 11:49] LABS: VITAMIN B12 LEVEL 306 PG/ML (211-911)
[2024-09-22 11:53] LABS: FOLATE 12.3 NG/ML (>5.4)
[2024-09-22 11:57] LABS: HEMOGLOBIN A1c 4.6 % (4.0-6.0)
== END ==
LOC: M LAB 10:48
PROVIDERS: ATTEND Physician Assistant
DX: I25.10 Atherosclerotic heart disease of native coronary artery without angina pectoris (principal); Z28.21 Immunization not carried out because of patient refusal; Z12.11 Encounter for screening for malignant neoplasm of colon; I71.40 Abdominal aortic aneurysm, without rupture, unspecified; C61 Malignant neoplasm of prostate; Z13.1 Encounter for screening for diabetes mellitus; K21.9 Gastro-esophageal reflux disease without esophagitis; E78.2 Mixed hyperlipidemia; Z79.899 Other long term (current) drug therapy

== ENCOUNTER → 2024-10-03 | Outpatient (CLI) | payer MEDICARE, MEDICAID ==
[~2024-10-03] MED LIST changes: +ISOVUE-370 76% 100ML VIAL As Ordered ONE
== END ==
LOC: M RAD 10:10
PROVIDERS: ATTEND Physician Assistant
DX: I71.40 Abdominal aortic aneurysm, without rupture, unspecified (principal); I70.0 Atherosclerosis of aorta; I70.1 Atherosclerosis of renal artery
CPT/HCPCS: 74160; Q9967

== ENCOUNTER → 2025-03-21 | Outpatient (REF) | payer MEDICARE, MEDICAID ==
[~2025-03-21] MED LIST changes: +FAMO1TAB11 PO; -ISOVUE-370 76% 100ML VIAL As Ordered ONE; +TREL1AER
== END ==
LOC: M SFHCADAM 09:43
PROVIDERS: ATTEND Physician Assistant
DX: S50.861D Insect bite (nonvenomous) of right forearm, subsequent encounter (principal)